=== PATIENT | male | born 1940 | race Caucasian/White ===

== ENCOUNTER → 2016-06-18 | Outpatient (CLI) | payer MEDICARE ==
--- NOTE | 2016-06-18 13:43 | XR ---
EXAMINATION TYPE: XR chest 2V DATE OF EXAM: 06/18/2016 12:00 PM COMPARISON: Prior chest x-ray 01 April 2012 HISTORY: COPD TECHNIQUE: Frontal and lateral views of the chest are obtained. FINDINGS: The right hemidiaphragm is elevated as on prior exam. There are postop changes present yusef t are stable, post lobectomy, median sternotomy. Intracardiac defibrillator leads are stable. No evid ent pneumothorax or pleural effusion. There is a spinal curvature. Ill-defined area of increased dens ity in the right upper lobe may be better visualized due to rotation, difficult to exclude an underly ing mass. Prominent lung volume may be indicative of underlying COPD. IMPRESSION: Postop changes, difficult to exclude an underlying mass right upper lobe, consider chest CT for better evaluation.
--- NOTE | 2016-06-18 13:46 | XR ---
Lumbosacral spine HISTORY: Low back pain, right flank pain 5 views of the lumbosacral spine No comparisons There is a dextroscoliosis centered at L3. Aortic stent graft is in place. There is multilevel spondy losis. In the left paraspinal location there is a calcification measuring approximately 24 mm x 17 mm . Additional smaller calcifications are scattered within the abdomen. Lumbar vertebral bodies show pr eserved height. Bone mineralization is mildly reduced. Multilevel spondylosis is present, loss of dis c height at the vertebral levels with associated vacuum phenomenon is noted. Sclerosis present in the posterior elements compatible with facet arthropathy. IMPRESSION: Degenerative disc disease, facet arthropathy, scoliosis and osteopenia. Possible nephroli thiasis, calcifications are indeterminate within the abdomen. Follow-up as indicated.
--- NOTE | 2016-06-18 14:07 | XR ---
EXAMINATION TYPE: XR Hip RT and AP Pelvis DATE OF EXAM: 06/18/2016 12:00 PM COMPARISON: NONE HISTORY: Low back pain TECHNIQUE: A single AP view of the pelvis is obtained. Two views of the right hip are obtained. FINDINGS: There is no acute fracture/dislocation evident in the pelvis. The hip and sacroiliac join ts appear symmetric and show some sclerosis possibly due to stress change, osteoarthritic change. Th e overlying soft tissue appears unremarkable. Vascular calcifications are present, postop change stat us post aorta iliac stent graft. Marginal spurring present in the right hip, there is some joint spac e loss within the hips. Bone mineralization is reduced. IMPRESSION: There is no acute fracture or dislocation in the pelvis or right hip. Mild osteoarthriti c changes are suspected.
== END | disposition home or self-care (01) ==
LOC: RADXRMAIN 11:35
PROVIDERS: ATTEND Family Medicine
DX: M51.36 Other intervertebral disc degeneration, lumbar region (principal); M46.86 Other specified inflammatory spondylopathies, lumbar region; M41.9 Scoliosis, unspecified; M85.88 Other specified disorders of bone density and structure, other site; M25.551 Pain in right hip; J44.9 Chronic obstructive pulmonary disease, unspecified
CPT/HCPCS: 71020; 72110; 73502

== ENCOUNTER → 2016-06-19 | Outpatient (CLI) | payer MEDICARE ==
--- NOTE | 2016-06-19 20:32 | CT ---
EXAMINATION TYPE: CT abdomen pelvis wo con DATE OF EXAM: 06/19/2016 8:11 PM COMPARISON: NONE HISTORY: Right sided pain CT DLP: 1409.5 mGycm Automated exposure control for dose reduction was used. TECHNIQUE: Helical acquisition of images was performed from the lung bases through the pelvis. FINDINGS: There is mild linear density at the right lung base consistent with atelectasis. There is no pericard ial effusion. There is no pleural effusion. Liver spleen pancreas appear normal. Bile ducts are not dilated. Gallbladder appears normal. There is no adrenal mass. There is a 7 cm cortical cyst on the anterior right kidney. There is no hydronephro sis. There is some cortical thinning in both kidneys and worse on the right side. There is no retrope ritoneal adenopathy. There is an aortic stent extending into the common iliac arteries. There is no retroperitoneal adenopathy. There is no ascites. Abdominal aorta is atheromatous. Bladder distends smoothly. There is no sign of a pelvic mass. Appendix is not seen. There is no sign of appe ndicitis. Prostate is enlarged and measures 5.5 cm. IMPRESSION: MILD ATELECTASIS AT THE RIGHT LUNG BASE. ENLARGED PROSTATE. ATHEROSCLEROTIC VASCULAR DISEASE. 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 LARGE RIGHT RENAL CORTICAL CYST. THERE IS SOME L4-5 SP INAL STENOSIS WITH A MINIMAL DEGENERATIVE FIRST-DEGREE L4-5 SPONDYLOLISTHESIS.
== END | disposition home or self-care (01) ==
LOC: RADCTMAIN 19:20
PROVIDERS: ATTEND Family Medicine
DX: N40.0 Benign prostatic hyperplasia without lower urinary tract symptoms (principal); N26.1 Atrophy of kidney (terminal); N28.1 Cyst of kidney, acquired; I70.90 Unspecified atherosclerosis
CPT/HCPCS: 74176

== ENCOUNTER → 2016-07-04 | Outpatient (CLI) | payer MEDICARE ==
[2016-07-05 09:27] LABS: Mis test requested (Non-blood) TP Urine 24Hr
== END | disposition home or self-care (01) ==
LOC: LABWHC1 11:57
PROVIDERS: ATTEND Family Medicine
DX: N18.2 Chronic kidney disease, stage 2 (mild) (principal)
CPT/HCPCS: 36415; 81050; 82575; 84156

== ENCOUNTER → 2016-07-10 | Outpatient (CLI) | payer MEDICARE ==
--- NOTE | 2016-07-10 16:05 | US ---
EXAMINATION TYPE: US kidneys/renal and bladder DATE OF EXAM: 07/10/2016 3:51 PM COMPARISON: NONE CLINICAL HISTORY: N18.2 CKD Stage 2. Cyst seen on recent CT EXAM MEASUREMENTS: Right Kidney: 9.9 x 4.5 x 5.9cm Left Kidney: 11.5 x 4.3 x 6.0cm TECHNOLOGIST IMPRESSION: Large body habitus Right Kidney: 7.3cm inferior pole cyst Left Kidney: 1.6cm inferior pole cyst seen Bladder: not fully distended, what was seen was wnl Bilateral Jets seen: no IMPRESSION: BILATERAL, SIMPLE APPEARING RENAL CYSTS.
== END | disposition home or self-care (01) ==
LOC: RADUSWWP 15:26
PROVIDERS: ATTEND Family Medicine
DX: N28.1 Cyst of kidney, acquired (principal); N18.2 Chronic kidney disease, stage 2 (mild)
CPT/HCPCS: 76770

== ENCOUNTER 2016-07-12 08:57 | Day surgery (SDC) | payer MEDICARE ==
[2016-07-11 11:25] VITALS: BMI 35.5
[~2016-07-12 08:57] MED LIST: LACTATED RINGERS 1,000 ML IV SCH
[2016-07-12] MEDS ORDERED: LIDOCAINE 1% 20 ML VIAL (10MG/ML) FOR IV START INTRADERMA ONE (09:40)
[2016-07-12 09:55] VITALS: TEMP 97.2
[2016-07-12] MEDS ORDERED: PROPOFOL 10 MG/ML 20 ML VIAL IV ONE (10:19)
[2016-07-12] MEDS ORDERED: LIDOCAINE 1% INJ 10MG/ML (20 ML MDV) ONE (10:19)
--- NOTE | 2016-07-12 10:45 | P.PCN ---
Date of Procedure: 07/12/16 Procedure(s) Performed: BRIEF HISTORY: Patient is a 76-year-old pleasant white male, scheduled for an elective colonoscopy as a part of screening for colorectal neoplasia. PROCEDURE PERFORMED: Colonoscopy and snare polypectomy. PREOPERATIVE DIAGNOSIS: Screening for colon cancer. IV sedation per Anesthesia. PROCEDURE: After informed consent was obtained, the patient, was brought into the endoscopy unit. IV conscious sedation was administered by Anesthesia under continuous monitoring. Initially the Olympus CF-160 flexible video colonoscope was then inserted in the rectum, gradually advanced into the cecum without any difficulty. Careful examination was performed as the scope was gradually being withdrawn. Ileocecal valve and the appendiceal orifice were visualized and appeared normal. Prep was excellent. In the base of the cecum there was a 1 cm polyp removed by snare polypectomy. In the ascending colon there was a 5 meter polyp removed by snare polypectomy. Mucosa of the cecum, ascending colon , transverse colon, descending colon, sigmoid colon, and rectum appeared normal. Retroflexion was performed in the rectum and no lesions were seen. The patient tolerated the procedure well. IMPRESSION: 1 cm cecal polyp status post polypectomy 5 mm ascending colon polyp status post polypectomy RECOMMENDATIONS: Findings of this examination were discussed with the patient as well as her family. He was advised to follow with the biopsy results. If the biopsy shows a tubular adenoma he can have a repeat colonoscopy in 3 years..
[2016-07-12 11:10] VITALS: BP 102/67; PULSE 53; RESP 18
== END 2016-07-12 11:49 | disposition home or self-care (01) ==
LOC: ORWHC2ENDO 08:57
PROVIDERS: ATTEND Internal Medicine Gastroenterology
DX: Z12.11 Encounter for screening for malignant neoplasm of colon (principal); D12.0 Benign neoplasm of cecum; D12.2 Benign neoplasm of ascending colon; I25.10 Atherosclerotic heart disease of native coronary artery without angina pectoris; I10 Essential (primary) hypertension; E78.5 Hyperlipidemia, unspecified; J45.909 Unspecified asthma, uncomplicated; J44.9 Chronic obstructive pulmonary disease, unspecified; G47.33 Obstructive sleep apnea (adult) (pediatric); E11.9 Type 2 diabetes mellitus without complications; F32.9 Major depressive disorder, single episode, unspecified; I25.2 Old myocardial infarction; Z79.02 Long term (current) use of antithrombotics/antiplatelets; Z79.899 Other long term (current) drug therapy; Z87.891 Personal history of nicotine dependence; Z95.1 Presence of aortocoronary bypass graft; Z95.5 Presence of coronary angioplasty implant and graft; Z95.810 Presence of automatic (implantable) cardiac defibrillator
CPT/HCPCS: 45385; 88305; J2001; J2704; 99153

== ENCOUNTER → 2016-07-31 | Outpatient (CLI) | payer MEDICARE ==
[2016-07-31 12:48] LABS: Basophils % (A) 0 %; CHCM 31.3; Eosinophils # (A) 0.3 k/uL (0-0.7); Eosinophils % (A) 3 %; HCT 42.2 % (39.0-53.0); HDW 2.54; HGB 13.1 gm/dL (13.0-17.5); Hypochromasia Slight; Luc # (Auto) 0.32; Luc % (Auto) 4; Lymphocytes # (A) 1.6 k/uL (1.0-4.8); Lymphocytes % (A) 20 %; MCH 31.9 pg (25.0-35.0); MCV 102.8 fL (80.0-100.0); Macrocytosis Slight; Mean Platelet Volume 6.6; Monocytes # (A) 0.6 k/uL (0-1.0); Monocytes % (A) 7 %; Neutrophils # (A) 5.3 k/uL (1.3-7.7); Neutrophils % (A) 66 %; RBC 4.11 m/uL (4.30-5.90); RDW 13.5 % (11.5-15.5); WBC (Perox) 8.79
[2016-07-31 13:07] LABS: ALT 29 U/L (21-72); AST 20 U/L (17-59); Alkaline Phosphatase 67 U/L (38-126); Anion Gap 12 mmol/L; Blood Urea Nitrogen 29 mg/dL (9-20); Calcium 9.4 mg/dL (8.4-10.2); Carbon Dioxide 30 mmol/L (22-30); Chloride 102 mmol/L (98-107); Glucose 100 mg/dL (74-99); Non-African American GFR(MDRD) 51 (>60 ml/min/1.73 sqM); Phosphorous 3.4 mg/dL (2.5-4.5); Potassium 4.5 mmol/L (3.5-5.1); Sodium 144 mmol/L (137-145); Total Bilirubin 0.7 mg/dL (0.2-1.3)
[2016-07-31 13:08] LABS: Appearance,Urine Clear (Clear); Bilirubin,Urine Negative (Negative); Glucose,Urine (UA) Negative (Negative); Ketones,Urine Negative (Negative); Leukocyte Esterase,Urine Negative (Negative); Nitrite,Urine Negative (Negative); Protein,Urine Negative (Negative); Specific Gravity,Urine 1.006 (1.001-1.035); UA Billing (MACRO vs. MICRO) CHEM; Urobilinogen,Urine <2.0 mg/dL (<2.0)
== END | disposition home or self-care (01) ==
LOC: LABWHC1 11:50
PROVIDERS: ATTEND Family Medicine
DX: N18.2 Chronic kidney disease, stage 2 (mild) (principal)
CPT/HCPCS: 36415; 80053; 81003; 84100; 85025

== ENCOUNTER → 2016-09-04 | Outpatient (CLI) | payer MEDICARE ==
[2016-09-04 08:42] LABS: Appearance,Urine Clear (Clear); Bilirubin,Urine Negative (Negative); Glucose,Urine (UA) Negative (Negative); Ketones,Urine Negative (Negative); Leukocyte Esterase,Urine Negative (Negative); Nitrite,Urine Negative (Negative); PH, Urine 5.5 (5.0-8.0); Protein,Urine Negative (Negative); Specific Gravity,Urine 1.018 (1.001-1.035); UA Billing (MACRO vs. MICRO) CHEM; Urobilinogen,Urine <2.0 mg/dL (<2.0)
[2016-09-04 09:07] LABS: Basophils % (A) 0 %; CH 32.5; CHCM 32.6; Eosinophils # (A) 0.3 k/uL (0-0.7); Eosinophils % (A) 5 %; HCT 43.4 % (39.0-53.0); HDW 2.58; HGB 14.1 gm/dL (13.0-17.5); Luc # (Auto) 0.21; Luc % (Auto) 3; Lymphocytes # (A) 1.3 k/uL (1.0-4.8); Lymphocytes % (A) 18 %; MCH 32.6 pg (25.0-35.0); MCHC 32.5 g/dL (31.0-37.0); MCV 100.2 fL (80.0-100.0); Mean Platelet Volume 6.6; Monocytes # (A) 0.4 k/uL (0-1.0); Monocytes % (A) 5 %; Neutrophils % (A) 69 %; RBC 4.33 m/uL (4.30-5.90); RDW 12.5 % (11.5-15.5); WBC 7.3 k/uL (3.8-10.6); WBC (Perox) 7.88
[2016-09-04 13:57] LABS: Anion Gap 11 mmol/L; Blood Urea Nitrogen 27 mg/dL (9-20); Calcium 9.2 mg/dL (8.4-10.2); Carbon Dioxide 27 mmol/L (22-30); Chloride 105 mmol/L (98-107); Glucose 109 mg/dL (74-99); Iron 78 ug/dL (49-181); Magnesium 1.9 mg/dL (1.6-2.3); Non-African American GFR(MDRD) 59 (>60 ml/min/1.73 sqM); Phosphorous 3.2 mg/dL (2.5-4.5); Potassium 4.3 mmol/L (3.5-5.1); Sodium 143 mmol/L (137-145); Uric Acid 7.5 mg/dL (3.5-8.5)
[2016-09-04 14:07] LABS: Total Iron Binding Capacity 325 ug/dL (261-462)
== END | disposition home or self-care (01) ==
LOC: LABWHC1 07:57
PROVIDERS: ATTEND Internal Medicine Nephrology
DX: D64.9 Anemia, unspecified (principal); E55.9 Vitamin D deficiency, unspecified; E21.3 Hyperparathyroidism, unspecified; N39.0 Urinary tract infection, site not specified; M10.9 Gout, unspecified; N18.3 Chronic kidney disease, stage 3 (moderate)
CPT/HCPCS: 36415; 80048; 81003; 82040; 82306; 82728; 83540; 83550; 83735; 83970; 84100; 84165; 84550; 85025; 86335

== ENCOUNTER → 2016-11-21 | Outpatient (CLI) | payer MEDICARE ==
--- NOTE | 2016-11-21 13:45 | US ---
EXAMINATION TYPE: US venous doppler duplex LE RT DATE OF EXAM: 11/21/2016 9:56 AM COMPARISON: NONE CLINICAL HISTORY: M79.604 Pain in R Leg. SIDE PERFORMED: Bilateral TECHNIQUE: The lower extremity deep venous system is examined utilizing real time linear array sonog niranjan with graded compression, doppler sonography and color-flow sonography. VESSELS IMAGED: External Iliac Vein (EIV) Common Femoral Vein Deep Femoral Vein Greater Saphenous Vein * Femoral Vein Popliteal Vein Small Saphenous Vein * Proximal Calf Veins (* superficial vessels) Grayscale, color doppler, spectral doppler imaging performed of the deep veins of the lower extremiti es. There is normal flow, compressibility, vascular waveforms bilaterally. Right Leg: Negative for DVT Left Leg: Negative for DVT IMPRESSION: No evidence for DVT at this time.
== END | disposition home or self-care (01) ==
LOC: RADUSWWP 08:47
PROVIDERS: ATTEND Family Medicine
DX: M79.604 Pain in right leg (principal)
CPT/HCPCS: 93970

== ENCOUNTER → 2017-01-01 | Outpatient (CLI) | payer MEDICARE ==
[2017-01-01 12:55] LABS: Appearance,Urine Clear (Clear); Bilirubin,Urine Negative (Negative); Glucose,Urine (UA) Negative (Negative); Ketones,Urine Negative (Negative); Leukocyte Esterase,Urine Negative (Negative); Nitrite,Urine Negative (Negative); Protein,Urine Negative (Negative); Specific Gravity,Urine 1.006 (1.001-1.035); UA Billing (MACRO vs. MICRO) CHEM; Urobilinogen,Urine <2.0 mg/dL (<2.0)
[2017-01-01 13:14] LABS: Basophils % (A) 0 %; CH 32.1; CHCM 32.5; Eosinophils # (A) 0.3 k/uL (0-0.7); Eosinophils % (A) 4 %; HCT 45.3 % (39.0-53.0); HDW 2.33; HGB 14.1 gm/dL (13.0-17.5); Luc # (Auto) 0.23; Luc % (Auto) 3; Lymphocytes # (A) 1.7 k/uL (1.0-4.8); Lymphocytes % (A) 20 %; MCH 30.8 pg (25.0-35.0); MCV 99.3 fL (80.0-100.0); Mean Platelet Volume 6.9; Monocytes # (A) 0.5 k/uL (0-1.0); Monocytes % (A) 6 %; Neutrophils # (A) 5.7 k/uL (1.3-7.7); Neutrophils % (A) 67 %; RBC 4.57 m/uL (4.30-5.90); RDW 13.8 % (11.5-15.5); WBC 8.5 k/uL (3.8-10.6); WBC (Perox) 8.44
[2017-01-01 13:22] LABS: Calcium 9.4 mg/dL (8.4-10.2); Magnesium 1.9 mg/dL (1.6-2.3); Phosphorous 4.2 mg/dL (2.5-4.5); Potassium 4.8 mmol/L (3.5-5.1); Uric Acid 8.7 mg/dL (3.5-8.5)
[2017-01-01 13:31] LABS: % Iron Saturation 33.4 % (20-50)
== END | disposition home or self-care (01) ==
LOC: LABWHC1 12:27
PROVIDERS: ATTEND Nurse Practitioner Family
DX: N18.3 Chronic kidney disease, stage 3 (moderate) (principal); D64.9 Anemia, unspecified; E55.9 Vitamin D deficiency, unspecified; E21.3 Hyperparathyroidism, unspecified; M10.9 Gout, unspecified; N39.0 Urinary tract infection, site not specified
CPT/HCPCS: 36415; 80048; 81003; 82306; 82728; 83540; 83550; 83735; 83970; 84100; 84550; 85025

== ENCOUNTER 2018-02-11 07:23 | Day surgery (SDC) | payer MEDICARE ==
[2018-02-09 11:59] VITALS: BMI 35.2
[~2018-02-11 07:23] MED LIST changes: +HYDROmorphone 0.5 MG/0.5 ML SYRINGE IVP PRN; +LIDOCAINE 1% 20 ML VIAL (10MG/ML) FOR IV START INTRADERMA PRN; +MOXIFLOXACIN HCL 0.5% DROPS 3 ML BTL OP ONE; +TETRACAINE 0.5% OPHTH (PF) DROPS 4 ML BTL OP ONE; +TIMOLOL 0.5% OPHTH DROPS 5 ML BTL OP ONE
[2018-02-11] MEDS: PHENYLEPHRINE 2.5% OPHTH DRP 2ML OP NR ×3 (08:20→08:36)
[2018-02-11] MEDS: CYCLOPENTOLATE 1% OPHTH SOLN 2 ML BTL OP ONE ×2 (08:24→08:39)
[2018-02-11 08:28] VITALS: RESP 16; TEMP 97.9
[2018-02-11] MEDS ORDERED: BALANCED SALT IRRIG SOLN COMB2 15 ML IRRIG.SOLN IRRIGATION ONE (09:39)
[2018-02-11] MEDS ORDERED: LIDOCAINE 1% (PF) 10MG/ML VIAL SQ ONE (09:39)
[2018-02-11] MEDS ORDERED: DUOVISC KIT (GREEN BOX) INTRAOCULA ONE (09:39)
[2018-02-11] MEDS ORDERED: EPINEPHrine (PF) 0.3 ML in BALANCED SALT IRRIG SOLN COMB2 500 ML IRRIGATION ONE (09:40)
[2018-02-11] MEDS ORDERED: EPINEPHrine 1 MG/ML 1 ML AMP IRRIGATION ONE (09:44)
--- NOTE | 2018-02-11 10:02 | P.OP ---
Date of Procedure: 02/11/18 Preoperative Diagnosis: NS Postoperative Diagnosis: same Procedure(s) Performed: PIOL, OS Implants: [id number] 28.50 Anesthesia: MAC Surgeon: Monty Ross Estimated Blood Loss (ml): 0 Pathology: none sent Condition: stable Disposition: same day Indications for Procedure: blurry vision & small pupil Operative Findings: NO complications
[2018-02-11 10:37] VITALS: BP 113/67; PULSE 52
--- NOTE | 2018-02-11 17:41 | OP ---
OPERATIVE REPORT DATE OF SURGERY: February 11, 2018. PROCEDURE PERFORMED: Phacoemulsification of cataract and intra-ocular lens implant of the left eye. PREOPERATIVE DIAGNOSIS: Nuclear sclerosis and regular astigmatism. POSTOPERATIVE DIAGNOSES: 1. Nuclear sclerosis. 2. Regular astigmatism. 3. Persistent miosis. SURGEONS: Dr. Monty Ross. ANESTHESIA: Topical. ESTIMATED BLOOD LOSS: None. SPECIMEN: Taken none. NARRATIVE: After obtaining the appropriate consent, the patient was brought to the operating room. There he was asked to sit upright and the axis 0 and 180 degrees were identified and marked with a gentian elis marker. He was then placed in the proper supine position under cardiac monitoring, then prepped and draped in the usual sterile manner. He was approached from his left temporal side using previously acquired corneal topography information, the axis 111 degrees was identified and marked at the 5 o'clock position. An MVR blade was used to create a paracentesis port. Through this opening 1% Xylocaine MPF 50 50 mix of balanced salt solution was injected into the anterior chamber. This was followed by stabilization of the anterior chamber with Viscoat. At the 3 o'clock position, a 2.5 mm keratome was used to create a self-sealing corneal flap incision in a Langerman's fashion. The pupil at this time was not any larger than about 4-1/2 mm and the concern for progressive miosis during the course of the case, it was opted to use a Malyugin ring 7 mm in size to hold the pupil open during the course of the cataract removal. A cystotome was then introduced to begin a continuous tear capsulorrhexis which was completed using the Utrata forceps. Hydrodissection and hydrodelineation of the lens was accomplished with balanced salt solution. Phacoemulsification of the lens utilizing phaco chop was accomplished in 23.35 seconds at 13% power. Additional Xylocaine MPF was instilled into the anterior chamber. This was followed by removal of the remaining cortex in and around the capsular bag and the capsular equator. Careful polishing was accomplished on the posterior capsule in the capsule vacuum mode. Provisc was then used to stabilize the capsular bag and an KHOI ZCT 400 28.5 diopter posterior chamber intraocular lens was then inserted into the bag without difficulty. The viscoelastic was removed from in and around the intra-ocular lens and the lens was rotated to its preferred orientation at the 111 degrees. A small amount of viscoelastic was then used to deepen the anterior chamber and the Malyugin ring was then disinserted from the nasal iris and then removed from the temporal incision with the insertion instrument. The balance of the viscoelastic was then removed under irrigation aspiration. The eye was then brought to normal intraocular pressure through the paracentesis port again confirming the orientation of the lens had not changed. The incisions were confirmed watertight. He then received 2 drops of 0.5% timolol followed by 2 drops of moxifloxacin and then was lightly patched and shielded in the usual manner. There were no complications from the procedure. He tolerated the procedure well and returned to outpatient recovery in good condition. MMODL / IJN: [id number] /
== END 2018-02-11 10:55 | disposition home or self-care (01) ==
LOC: OR 07:23
PROVIDERS: ATTEND Ophthalmology
DX: H25.13 Age-related nuclear cataract, bilateral (principal); H52.223 Regular astigmatism, bilateral; H57.03 Miosis; H00.023 Hordeolum internum right eye, unspecified eyelid; H00.026 Hordeolum internum left eye, unspecified eyelid; H52.4 Presbyopia; H52.03 Hypermetropia, bilateral; E11.9 Type 2 diabetes mellitus without complications; I25.10 Atherosclerotic heart disease of native coronary artery without angina pectoris; I10 Essential (primary) hypertension; E78.00 Pure hypercholesterolemia, unspecified; Z95.1 Presence of aortocoronary bypass graft; Z95.0 Presence of cardiac pacemaker; Z79.02 Long term (current) use of antithrombotics/antiplatelets; Z79.51 Long term (current) use of inhaled steroids; Z79.899 Other long term (current) drug therapy
CPT/HCPCS: 66984; C1780; J0171 ×2; J2001

== ENCOUNTER 2018-02-25 08:10 | Day surgery (SDC) | payer MEDICARE ==
[2018-02-24 08:57] VITALS: BMI 34.5
[~2018-02-25 08:10] MED LIST changes: -HYDROmorphone 0.5 MG/0.5 ML SYRINGE IVP PRN; -LIDOCAINE 1% 20 ML VIAL (10MG/ML) FOR IV START INTRADERMA PRN
[2018-02-25 08:51] VITALS: RESP 16; TEMP 97.5
[2018-02-25] MEDS: CYCLOPENTOLATE 1% OPHTH SOLN 2 ML BTL OP ONE ×3 (08:55→09:16)
[2018-02-25] MEDS: PHENYLEPHRINE 2.5% OPHTH DRP 2ML OP NR ×3 (09:00→09:19)
[2018-02-25] MEDS ORDERED: LIDOCAINE 1% 20 ML VIAL (10MG/ML) FOR IV START INTRADERMA ONE (09:07)
[2018-02-25] MEDS ORDERED: BALANCED SALT IRRIG SOLN COMB2 15 ML IRRIG.SOLN IRRIGATION ONE (09:59)
[2018-02-25] MEDS ORDERED: LIDOCAINE 1% (PF) 10MG/ML VIAL SQ ONE (10:00)
[2018-02-25] MEDS ORDERED: DUOVISC KIT (GREEN BOX) INTRAOCULA ONE (10:00)
[2018-02-25] MEDS ORDERED: MIDAZOLAM 2 MG/2 ML VIAL ONE (10:08)
[2018-02-25] MEDS ORDERED: EPINEPHrine (PF) 0.3 ML in BALANCED SALT IRRIG SOLN COMB2 500 ML IRRIGATION ONE (10:17)
--- NOTE | 2018-02-25 10:38 | P.OP ---
Date of Procedure: 02/25/18 Preoperative Diagnosis: NS & reg astigmatism Postoperative Diagnosis: same Procedure(s) Performed: PIOL, OD Implants: [id number] 29.00 Anesthesia: MAC Surgeon: Monty Ross Estimated Blood Loss (ml): 0 Pathology: none sent Condition: stable Disposition: same day Operative Findings: blurry vision Description of Procedure: NO complications
[2018-02-25 11:02] LABS: Glucose,Whole Blood 112 mg/dL (75-99)
[2018-02-25 11:27] VITALS: BP 115/46; PULSE 50
--- NOTE | 2018-02-25 20:13 | OP ---
OPERATIVE REPORT DATE OF SURGERY: 25 February 2018. PROCEDURES: Phacoemulsification of cataract and intraocular lens implant of the right eye. PREOPERATIVE DIAGNOSES: 1. Nuclear sclerosis. 2. Regular astigmatism. POSTOPERATIVE DIAGNOSES: 1. Nuclear sclerosis. 2. Regular astigmatism. SURGEONS: Dr. Monty Ross. ANESTHESIA: Topical. ESTIMATED BLOOD LOSS: None. SPECIMEN TAKEN: None. NARRATIVE: After obtaining the appropriate consent, the patient was brought to the operating room. There he was asked to sit upright and fixate on an object across the room. The axes 0 and 180 degrees were identified and marked with a gentian elis marker. He was then placed in the proper supine position, prepped and draped in the usual sterile manner. He was approached from his right temporal side and the axis of 85 degrees was identified and marked with a decrement corneal marking set. At the 11 o'clock position an MVR blade was used to create a paracentesis port. Through this opening 1% Xylocaine MPF 50:50 mix with balanced salt solution was injected into the anterior chamber. This was followed by stabilization of the anterior chamber with Viscoat. At the 9 o'clock position, a 2.5 mm keratome was used to create a self-sealing corneal flap incision in a Langerman's fashion. Through this opening a cystotome was introduced to begin a continuous tear capsulorrhexis which was then completed using the Utrata forceps. Hydrodissection and hydrodelineation of the lens was accomplished with balanced salt solution. Phacoemulsification lens utilizing phaco chop was accomplished in 19.99 seconds at 15% power. Additional Xylocaine MPF was instilled into the anterior chamber. This was followed by removal of the remaining cortex under irrigation and aspiration along with careful polishing of the posterior capsule in capsule vacuum mode. Provisc was then used to stabilize the capsular bag and an KHOI [id number] 29.0 diopter posterior chamber intraocular lens was then inserted into the capsular bag without difficulty. The remaining viscoelastic was removed from in and around the intra-ocular lens and the lens was then aligned with the 85 degree axis as marked on the patient's cornea. The eye was then filled with balanced salt solution and the incisions were confirmed watertight. He then received 2 drops of 0.5% timolol followed by 2 drops of moxifloxacin and then was lightly patched and shielded in the usual manner. There were no complications from the procedure. He tolerated the procedure well and was returned to outpatient recovery in good condition. DAISHA / JANUSZN: [id number] /
== END 2018-02-25 11:55 | disposition home or self-care (01) ==
LOC: OR 08:10
PROVIDERS: ATTEND Ophthalmology
DX: H25.11 Age-related nuclear cataract, right eye (principal); E11.36 Type 2 diabetes mellitus with diabetic cataract; H52.223 Regular astigmatism, bilateral; H00.026 Hordeolum internum left eye, unspecified eyelid; H00.023 Hordeolum internum right eye, unspecified eyelid; H52.4 Presbyopia; H52.03 Hypermetropia, bilateral; I11.9 Hypertensive heart disease without heart failure; F32.9 Major depressive disorder, single episode, unspecified; M54.9 Dorsalgia, unspecified; J43.9 Emphysema, unspecified; K21.9 Gastro-esophageal reflux disease without esophagitis; Z95.1 Presence of aortocoronary bypass graft; Z95.5 Presence of coronary angioplasty implant and graft; Z95.0 Presence of cardiac pacemaker; Z79.51 Long term (current) use of inhaled steroids; Z79.899 Other long term (current) drug therapy; Z85.828 Personal history of other malignant neoplasm of skin
CPT/HCPCS: 66984; V2787; C1780; J2250; J0171; J2001

== ENCOUNTER → 2019-04-05 | Outpatient (CLI) | payer MEDICARE ==
--- NOTE | 2019-04-05 15:41 | XR ---
EXAMINATION TYPE: XR chest 2V DATE OF EXAM: 04/05/2019 COMPARISON: Prior chest x-ray 06/18/2016 HISTORY: Cough and shortness of breath TECHNIQUE: Frontal and lateral views of the chest are obtained. FINDINGS: Patient is post median sternotomy. Right hemidiaphragm remains elevated. Abnormal increased attenuation the right upper lobe is again noted is somewhat more conspicuous as compared to previous chest x-ray. Fourth rib resection change is stable on the right. Generator is in the left pectoral r egion, there are leads in the right atrium, right ventricle, coronary sinus. There is no pleural effu jayant or pneumothorax seen. Minimal patchy basilar density is again noted and may reflect scarring, a telectasis. The cardiac silhouette size is stable. The osseous structures are intact. IMPRESSION: Abnormal density right upper lobe may be related to patient's surgery but may be somewha t more conspicuous on today's exam. Chest CT could be performed for better evaluation as stated on pr ior report.
== END | disposition home or self-care (01) ==
LOC: RADXRMAIN 13:07
PROVIDERS: ATTEND Family Medicine
DX: J98.4 Other disorders of lung (principal)
CPT/HCPCS: 71046

== ENCOUNTER → 2019-09-28 | Outpatient (CLI) | payer MEDICARE | END | disposition home or self-care (01) | LOC: LABWHC1 08:12 | PROVIDERS: ATTEND Internal Medicine Clinical Cardiac Electrophysiology | DX: Z11.59 Encounter for screening for other viral diseases (principal) | CPT/HCPCS: 87635 ==

== ENCOUNTER 2019-09-30 13:53 | Day surgery (SDC) | payer MEDICARE ==
[2019-09-29 10:38] VITALS: BMI 33.2
[~2019-09-30 13:53] MED LIST changes: -MOXIFLOXACIN HCL 0.5% DROPS 3 ML BTL OP ONE; +SODIUM CHLORIDE 0.9% 1,000 ML IV SCH; -TETRACAINE 0.5% OPHTH (PF) DROPS 4 ML BTL OP ONE; -TIMOLOL 0.5% OPHTH DROPS 5 ML BTL OP ONE; +ceFAZolin 1,000 MG in SODIUM CHLORIDE 0.9% IRRIGATIO 250 ML IRRIGATION ONE
[2019-09-30] MEDS ORDERED: SODIUM CHLORIDE 0.9% 1,000 ML IV ONE (14:05)
[2019-09-30 14:29] LABS: Glucose,Whole Blood 91 mg/dL (75-99)
[2019-09-30 14:33] LABS: Basophils % (A) 0 %; Eosinophils # (A) 0.2 k/uL (0-0.7); Eosinophils % (A) 2 %; HCT 46.6 % (39.0-53.0); HGB 15.2 gm/dL (13.0-17.5); Lymphocytes # (A) 0.8 k/uL (1.0-4.8); Lymphocytes % (A) 9 %; MCH 31.7 pg (25.0-35.0); MCHC 32.6 g/dL (31.0-37.0); MCV 97.1 fL (80.0-100.0); Mean Platelet Volume 7.1; Monocytes # (A) 0.6 k/uL (0-1.0); Monocytes % (A) 7 %; Neutrophils # (A) 7.3 k/uL (1.3-7.7); Neutrophils % (A) 80 %; Platelet Count 293 k/uL (150-450); RDW 13.6 % (11.5-15.5); WBC 9.2 k/uL (3.8-10.6)
[2019-09-30 14:38] LABS: INR 1.5 (<1.2); Prothrombin Time 15.2 sec (9.0-12.0)
[2019-09-30 14:40] LABS: Calcium 9.2 mg/dL (8.4-10.2); Potassium 4.8 mmol/L (3.5-5.1)
[2019-09-30 14:46] VITALS: TEMP 98
[2019-09-30] MEDS ORDERED: VANCOMYCIN 1,000 MG in SODIUM CHLORIDE 0.9% 250 ML IVPB STA (14:59)
[2019-09-30] MEDS ORDERED: MIDAZOLAM 2 MG/2 ML VIAL ONE (15:49)
[2019-09-30] MEDS ORDERED: fentaNYL (PF) 50 MCG/ML 2 ML AMP ONE (15:49)
[2019-09-30] MEDS ORDERED: VANCOMYCIN 1,000 MG VIAL ONE (15:49)
[2019-09-30] MEDS ORDERED: LIDOCAINE 1% INJ 10MG/ML (20 ML MDV) ONE ×2 (16:05)
[2019-09-30] MEDS ORDERED: LIDOCAINE 1% INJ 10MG/ML (20 ML MDV) SQ ONE ×2 (16:15→16:21)
[2019-09-30] MEDS ORDERED: CEPHALEXIN 500 MG CAP PO STA (17:16)
[2019-09-30] MEDS ORDERED: ACETAMINOPHEN IV (For NPO) 1,000 MG in EMPTY BAG 1 BAG IVPB ONE (17:16)
[2019-09-30] MEDS ORDERED: ACETAMINOPHEN TAB 325 MG TAB PO PRN (17:16)
--- NOTE | 2019-09-30 17:39 | P.DS ---
Providers Attending physician: Julio Cesar Giraldo [facility] Course: Mr. Baldwin underwent biventricular ICD generator change successfully He will be discharged home today and was see us in the office in the device clinic in about 5-7 days IV antibiotics were administered He will get extra dose of oral Keflex No changes in his medications. He will restart Coumadin tomorrow Plan - Discharge Summary Discharge Rx Participant: Yes New Discharge Prescriptions: Continue Spironolactone [Aldactone] 25 mg PO BID Furosemide [Lasix] 40 mg PO DAILY Clopidogrel [Plavix] 75 mg PO DAILY Carvedilol [Coreg] 6.25 mg PO BID Atorvastatin [Lipitor] 20 mg PO HS Escitalopram [Lexapro] 10 mg PO DAILY Budesonide-Formot 160-4.5 Mcg [Symbicort 160-4.5 Mcg Inhaler] 2 puff INHALATION BID Albuterol Nebulized [Ventolin Nebulized] 2.5 mg INHALATION Q6H PRN PRN Reason: Dyspnea Warfarin [Coumadin] 5 mg PO DAILY Allopurinol [Zyloprim] 100 mg PO DAILY Glimepiride [Amaryl] [facility] Discharge Medication List Atorvastatin [Lipitor] 20 mg PO HS 04/30/16 [History] Carvedilol [Coreg] 6.25 mg PO BID 04/30/16 [History] Clopidogrel [Plavix] 75 mg PO DAILY 04/30/16 [History] Furosemide [Lasix] 40 mg PO DAILY 04/30/16 [History] Spironolactone [Aldactone] 25 mg PO BID 04/30/16 [History] Escitalopram [Lexapro] 10 mg PO DAILY 07/11/16 [History] Budesonide-Formot 160-4.5 Mcg [Symbicort 160-4.5 Mcg Inhaler] 2 puff INHALATION BID 02/09/18 [History] Albuterol Nebulized [Ventolin Nebulized] 2.5 mg INHALATION Q6H PRN 08/23/19 [History] Allopurinol [Zyloprim] 100 mg PO DAILY 08/23/19 [History] Warfarin [Coumadin] 5 mg PO DAILY 08/23/19 [History] Glimepiride [Amaryl] 1 mg PO [id number] 09/29/19 [History] Follow up Appointment(s)/Referral(s): Julio Cesar Giraldo MD [STAFF PHYSICIAN] - 1 Week (Device clinic follow-up within 1 week Follow-up with Dr. Giraldo/Melissa Schuster/Bindu Mckeon in 2-3 months) Activity/Diet/Wound Care/Special Instructions: PATIENT EDUCATION MATERIAL Instructions following a heart rhythm device implant. 1. Keep dressing DRY for 5 DAYS. You may cover the area with Saran or Cling Wrap, prior to a shower. 2. The dressing will be removed in the Device Clinic at [facility]. Absorbable sutures were used to close the wound. 3. Avoid raising the left arm above the shoulder level. 4 week restriction 4. Avoid arm movements, like backscratching, rubbing the head, or pulling on a cord. 4 weeks restriction 5. Gentle range of motion movements of the shoulder, closest to the incision should be performed to avoid a frozen shoulder. (Pendulum exercises of the shoulder) 6. The opposite arm may be used freely. 7. Avoid driving for 7 days. 8. Avoid activities such as golfing, swimming, weed whacking, lifting more than 10 pounds weight, bowling, gymnastics and weight training/lifting. (6 weeks restriction) 9. Activities such as wood chopping with an axe, pull-ups in the gymnasium, power lifting, arc-welding, being close to home induction cooktops will always be a problem. 10. Arm sling is only a reminder not to raise the arm above the head. You do not need to keep the arm completely immobilized. Your free to move the arm and use it and for normal activities. In case of any problems, please call [facility], Manny Montanez, @ [phone], Attention: Device Clinic Device clinic follow-up in 5 days Follow-up with primary maintenance repairman in 2-3 months Discharge Disposition: HOME SELF-CARE
[2019-09-30 17:57] VITALS: BP 141/72; PULSE 60; RESP 18
--- NOTE | 2019-09-30 18:54 | PCN ---
PROCEDURE NOTE Mr. Baldwin is an 79-year-old male patient who has a biventricular ICD implanted. His device is at [facility]. He has severe LV dysfunction with cardiomyopathy. He is brought into the EP lab for biventricular ICD generator change. Patient was brought to the EP lab in a fasting state. Written informed consent was obtained prior to the procedure. The left shoulder area was prepped and draped as per protocol. Lidocaine 1% was used for local anesthesia. IV antibiotics were administered. An incision was made directly over the generator and carried down to the level of the generator. The generator was explanted. The leads were freed from the surrounding capsule. Partial capsulectomy was performed. Hemostasis was assured. The LV lead was noted to have a kink in its coil and therefore this was repaired. Standard repair kit was used. Silicone was applied. Tubing was applied over it and secured with 2 silk sutures. The new generator was implanted. This was a [employer] model number [id number], serial number [id number]. The P-waves were 1.6 mV, pacing impedance 532 ohms, pacing threshold 1.25 V at 0.4 milliseconds. R-waves were 6.8 mV, pacing impedance 572 ohms. High-voltage impedance 78 ohms. Pacing threshold 0.75 V at 0.4 milliseconds. The LV pacing impedance was 456 ohms, pacing threshold 0.75 V at 0.4 milliseconds. The new generator was implanted. The wound was closed in 3 layers and dressed per protocol. RESULT: Successful biventricular ICD generator change for device at [facility]. The device was implanted with 2 zones of therapy, VT zone at 176 beats per minute, VF zone at 210 beats per minute. Appropriate antitachycardia pacing, cardioversion and defibrillation were programmed. LV/RV offset of 30 milliseconds for biventricular pacing. MMODL / IJN: [id number] /
== END 2019-09-30 18:55 | disposition home or self-care (01) ==
LOC: CATHEP 13:53
PROVIDERS: ATTEND Internal Medicine Clinical Cardiac Electrophysiology
DX: Z45.02 Encounter for adjustment and management of automatic implantable cardiac defibrillator (principal); I25.5 Ischemic cardiomyopathy; I25.10 Atherosclerotic heart disease of native coronary artery without angina pectoris; I11.0 Hypertensive heart disease with heart failure; I50.22 Chronic systolic (congestive) heart failure; I25.2 Old myocardial infarction; I73.9 Peripheral vascular disease, unspecified; E78.2 Mixed hyperlipidemia; M19.90 Unspecified osteoarthritis, unspecified site; F32.9 Major depressive disorder, single episode, unspecified; J44.9 Chronic obstructive pulmonary disease, unspecified; N28.9 Disorder of kidney and ureter, unspecified; Z95.1 Presence of aortocoronary bypass graft; Z87.891 Personal history of nicotine dependence; Z85.828 Personal history of other malignant neoplasm of skin; Z82.49 Family history of ischemic heart disease and other diseases of the circulatory system; Z79.02 Long term (current) use of antithrombotics/antiplatelets; Z79.51 Long term (current) use of inhaled steroids; Z79.01 Long term (current) use of anticoagulants; Z79.84 Long term (current) use of oral hypoglycemic drugs; Z79.899 Other long term (current) drug therapy; Z88.6 Allergy status to analgesic agent
CPT/HCPCS: 33264; 80048; 85025; 85610; C1882; J2250; J3370; J0690; J2001; J3010; J0131

== ENCOUNTER 2020-08-24 16:20 | Inpatient (IN) | payer MEDICARE ==
[2020-08-24] MEDS ORDERED: ALBUTEROL HFA INHALER INHALATION STA (16:49)
[2020-08-24] MEDS ORDERED: methylPREDNISolone SOD SUCCI 125 MG/2 ML VIAL IV STA (16:49)
[2020-08-24 17:08] LABS: Basophils % (A) 0 %; Eosinophils % (A) 0 %; HCT 46.7 % (39.0-53.0); HGB 15.2 gm/dL (13.0-17.5); Lymphocytes # (A) 0.8 k/uL (1.0-4.8); Lymphocytes % (A) 13 %; MCH 31.1 pg (25.0-35.0); MCHC 32.6 g/dL (31.0-37.0); MCV 95.6 fL (80.0-100.0); Mean Platelet Volume 7.3; Monocytes # (A) 0.5 k/uL (0-1.0); Monocytes % (A) 8 %; Neutrophils # (A) 4.8 k/uL (1.3-7.7); Neutrophils % (A) 76 %; Platelet Count 178 k/uL (150-450); RBC 4.89 m/uL (4.30-5.90); WBC 6.3 k/uL (3.8-10.6)
--- NOTE | 2020-08-24 17:15 | ED ---
General Adult HPI - General Chief complaint: Shortness of Breath Stated complaint: Sent by PCP - covid symptoms Time Seen by Provider: 08/24/20 16:36 Source: patient, RN notes reviewed, old records reviewed Mode of arrival: wheelchair Limitations: no limitations - History of Present Illness Initial comments: 80-year-old male presenting for evaluation of cough and dyspnea. Patient was sent in by primary care physician for possible medical antibody infusion. He does have history of COPD. He states he's had diarrhea as well as fatigue and fever. Symptoms have been present for approximately 5 days. - Related Data Home Medications Medication Instructions Recorded Confirmed Atorvastatin [Lipitor] 20 mg PO HS 04/30/16 09/30/19 Carvedilol [Coreg] 6.25 mg PO BID 04/30/16 09/30/19 Clopidogrel [Plavix] 75 mg PO DAILY 04/30/16 09/30/19 Furosemide [Lasix] 40 mg PO DAILY 04/30/16 09/30/19 Spironolactone [Aldactone] 25 mg PO BID 04/30/16 09/30/19 Escitalopram [Lexapro] 10 mg PO DAILY 07/11/16 09/30/19 Budesonide-Formot 160-4.5 Mcg 2 puff INHALATION BID 02/09/18 09/30/19 [Symbicort 160-4.5 Mcg Inhaler] Albuterol Nebulized [Ventolin 2.5 mg INHALATION Q6H PRN 08/23/19 09/30/19 Nebulized] Warfarin [Coumadin] 5 mg PO DAILY 08/23/19 09/30/19 allopurinoL [Zyloprim] 100 mg PO DAILY 08/23/19 09/30/19 Glimepiride [Amaryl] 1 mg PO AC-BRKFST 09/29/19 09/30/19 Allergies Allergy/AdvReac Type Severity Reaction Status Date / Time ibuprofen [From Motrin] AdvReac Nausea & Verified 08/24/20 16:29 Vomiting Review of Systems ROS Statement: Those systems with pertinent positive or pertinent negative responses have been documented in the HPI. ROS Other: All systems not noted in ROS Statement are negative. Past Medical History Past Medical History: Coronary Artery Disease (CAD), Cancer, COPD, Diabetes Mellitus, Eye Disorder, Hyperlipidemia, Hypertension, Osteoarthritis (OA), Renal Disease Additional Past Medical History / Comment(s): HX SKIN CA, STATES DIET CONTROLLED DIABETIC, currently taking antibiotic for cough & congestion, states cough is better since starting antibiotic, see Dr Giraldo H & P History of Any Multi-Drug Resistant Organisms: None Reported Past Surgical History: AICD, Coronary Bypass/CABG, Heart Catheterization, Heart Catheterization With Stent, Orthopedic Surgery Additional Past Surgical History / Comment(s): lung surgery to remove calcium deposits, left knee ligament repair, excision and skin grafting of skin cancer nose, CABG X3; Cataracts removed, stent for aortic aneurysm Past Anesthesia/Blood Transfusion Reactions: No Reported Reaction Date of Last Stent Placement:: 1999 Type of Cardiac Device: AICD Device Placement Date:: 2009 Past Psychological History: Depression Smoking Status: Never smoker Past Alcohol Use History: Occasional Past Drug Use History: None Reported - Past Family History Mother Family Medical History: Cancer Father Family Medical History: CVA/TIA General Exam Limitations: no limitations General appearance: alert, in distress Head exam: Present: atraumatic, normocephalic Eye exam: Present: normal appearance, PERRL ENT exam: Present: normal exam Neck exam: Present: normal inspection. Absent: tenderness, meningismus Respiratory exam: Present: respiratory distress, wheezes, rhonchi, accessory muscle use, decreased breath sounds Cardiovascular Exam: Present: regular rate, normal rhythm GI/Abdominal exam: Present: soft. Absent: distended, tenderness, guarding Extremities exam: Present: normal inspection, normal capillary refill. Absent: pedal edema, calf tenderness Neurological exam: Present: alert, oriented X3, CN II-XII intact. Absent: motor sensory deficit Psychiatric exam: Present: normal affect, normal mood Skin exam: Present: warm, dry, intact. Absent: cyanosis, diaphoretic Course Vital Signs 08/24/20 08/24/20 16:30 18:19 Temperature 99.3 F Pulse Rate 68 78 Respiratory 18 20 Rate Blood Pressure 116/57 131/65 O2 Sat by Pulse 88 L 92 L Oximetry EKG Findings - EKG Comments: EKG Findings:: EKG called amount pacemaker with PVCs, left axis, rate of 81, QRS duration 162, QTc 506 Medical Decision Making - Medical Decision Making 80-year-old male presents in moderate respiratory distress, history COPD. His presentation is concerning for virus. He has a chest x-ray showing bilateral infiltrate concerning for Crohn versus pneumonia. He does test positive for virus. He has elevated d-dimer 2.18 as well as elevated LDH and CRP. He has a creatinine of 2.03. His INR is therapeutic at 2.5. He is placed in observation for Crohn virus pneumonia with COPD exacerbation. He is given monoclonal antibodies as well as steroids in the emergency department. Case discussed with Dr. Ordoñez who will admit. - Lab Data Result diagrams: 08/24/20 16:57 08/24/20 16:57 Lab Results 08/24/20 08/24/20 08/24/20 Range/Units 16:57 16:57 16:57 WBC 6.3 (3.8-10.6) k/uL RBC 4.89 (4.30-5.90) m/uL Hgb 15.2 (13.0-17.5) gm/dL Hct 46.7 (39.0-53.0) % MCV 95.6 (80.0-100.0) fL MCH 31.1 (25.0-35.0) pg MCHC 32.6 (31.0-37.0) g/dL RDW 14.0 (11.5-15.5) % Plt Count 178 (150-450) k/uL MPV 7.3 Neutrophils % 76 % Lymphocytes % 13 % Monocytes % 8 % Eosinophils % 0 % Basophils % 0 % Neutrophils # 4.8 (1.3-7.7) k/uL Lymphocytes # 0.8 L (1.0-4.8) k/uL Monocytes # 0.5 (0-1.0) k/uL Eosinophils # 0.0 (0-0.7) k/uL Basophils # 0.0 (0-0.2) k/uL PT 24.0 H (9.0-12.0) sec INR 2.5 H (<1.2) APTT 39.0 H (22.0-30.0) sec D-Dimer 2.18 H (<0.60) mg/L FEU Sodium 134 L (137-145) mmol/L Potassium 5.0 (3.5-5.1) mmol/L Chloride 100 (98-107) mmol/L Carbon Dioxide 23 (22-30) mmol/L Anion Gap 11 mmol/L BUN 42 H (9-20) mg/dL Creatinine 2.03 H (0.66-1.25) mg/dL Est GFR (CKD-EPI)AfAm 34 (>60 ml/min/1.73 sqM) Est GFR (CKD-EPI)NonAf 30 (>60 ml/min/1.73 sqM) Glucose 134 H (74-99) mg/dL Plasma Lactic Acid Jerome (0.7-2.0) mmol/L Calcium 8.8 (8.4-10.2) mg/dL Magnesium 2.0 (1.6-2.3) mg/dL Total Bilirubin 0.8 (0.2-1.3) mg/dL AST 32 (17-59) U/L ALT 17 (4-49) U/L Alkaline Phosphatase 76 (38-126) U/L Lactate Dehydrogenase 846 H (313-618) U/L C-Reactive Protein 147.9 H (<10.0) mg/L Total Protein 6.7 (6.3-8.2) g/dL Albumin 3.7 (3.5-5.0) g/dL Coronavirus (PCR) (Not Detectd) 08/24/20 08/24/20 Range/Units 16:57 17:33 WBC (3.8-10.6) k/uL RBC (4.30-5.90) m/uL Hgb (13.0-17.5) gm/dL Hct (39.0-53.0) % MCV (80.0-100.0) fL MCH (25.0-35.0) pg MCHC (31.0-37.0) g/dL RDW (11.5-15.5) % Plt Count (150-450) k/uL MPV Neutrophils % % Lymphocytes % % Monocytes % % Eosinophils % % Basophils % % Neutrophils # (1.3-7.7) k/uL Lymphocytes # (1.0-4.8) k/uL Monocytes # (0-1.0) k/uL Eosinophils # (0-0.7) k/uL Basophils # (0-0.2) k/uL PT (9.0-12.0) sec INR (<1.2) APTT (22.0-30.0) sec D-Dimer (<0.60) mg/L FEU Sodium (137-145) mmol/L Potassium (3.5-5.1) mmol/L Chloride (98-107) mmol/L Carbon Dioxide (22-30) mmol/L Anion Gap mmol/L BUN (9-20) mg/dL Creatinine (0.66-1.25) mg/dL Est GFR (CKD-EPI)AfAm (>60 ml/min/1.73 sqM) Est GFR (CKD-EPI)NonAf (>60 ml/min/1.73 sqM) Glucose (74-99) mg/dL Plasma Lactic Acid Jerome 1.2 (0.7-2.0) mmol/L Calcium (8.4-10.2) mg/dL Magnesium (1.6-2.3) mg/dL Total Bilirubin (0.2-1.3) mg/dL AST (17-59) U/L ALT (4-49) U/L Alkaline Phosphatase (38-126) U/L Lactate Dehydrogenase (313-618) U/L C-Reactive Protein (<10.0) mg/L Total Protein (6.3-8.2) g/dL Albumin (3.5-5.0) g/dL Coronavirus (PCR) Detected A (Not Detectd) Disposition Clinical Impression: Acute exacerbation of chronic obstructive pulmonary disease, Pneumonia due to COVID-19 virus Disposition: ADMITTED IP TO THIS [facility] Condition: Stable Is patient prescribed a controlled substance at d/c from ED?: No Referrals: Edwige Steven MD [Primary Care Provider] - 1-2 days Decision to Admit Reason: Admit from EC Decision Date: 08/24/20 Decision Time: 19:19
[2020-08-24 17:24] LABS: Albumin 3.7 g/dL (3.5-5.0); Calcium 8.8 mg/dL (8.4-10.2); Total Bilirubin 0.8 mg/dL (0.2-1.3); Total Protein 6.7 g/dL (6.3-8.2)
[2020-08-24 17:28] LABS: INR 2.5 (<1.2)
--- NOTE | 2020-08-24 17:29 | XR ---
EXAMINATION TYPE: XR chest 1V portable DATE OF EXAM: 08/24/2020 COMPARISON: 04/05/2019. HISTORY: Shortness of breath. TECHNIQUE: Single frontal view of the chest is obtained. FINDINGS: There is moderate bibasilar patchy opacities. Additional 2 cm nodular opacity in the right upper lobe. Also similar nodular right perihilar opacity. Stable elevation of the right hemidiaphrag m. No pleural effusion, or pneumothorax seen. Stable cardiomediastinal silhouette and overlying posts urgical changes. The osseous structures are intact. IMPRESSION: Moderate bibasilar opacity, concerning for infiltrates. Additional right-sided nodular opacities. for which other etiologies cannot be excluded. Recommend CT for optimal evaluation.
[2020-08-24 18:12] LABS: C Reactive Protein 147.9 mg/L (<10.0)
[2020-08-24] MEDS ORDERED: BAMLANIVIMAB (EUA) 700 MG, ETESEVIMAB (EUA) 1,400 MG in SODIUM CHLORIDE 0.9% 50 ML IVPB ONE (20:00)
[2020-08-24] MEDS ORDERED: SODIUM CHLORIDE 0.9% 50 ML IVPB ONE (20:30)
[2020-08-25] MEDS ORDERED: ALBUTEROL HFA INHALER INHALATION PRN (00:59)
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
[2020-08-25] MEDS ORDERED: WARFARIN 5 MG TAB PO ONE ×2 (01:30→18:00)
[2020-08-25] MEDS: methylPREDNISolone SOD SUCCI 125 MG/2 ML VIAL IV SCH ×5 (02:48→23:11)
[2020-08-25 03:34] LABS: Ferritin 744.4 ng/mL (22.0-322.0)
[2020-08-25 04:49] LABS: HCT 48.2 % (39.0-53.0); HGB 15.9 gm/dL (13.0-17.5); MCV 97.2 fL (80.0-100.0); Platelet Count 177 k/uL (150-450); RBC 4.96 m/uL (4.30-5.90); RDW 13.5 % (11.5-15.5); WBC 6.4 k/uL (3.8-10.6)
[2020-08-25 07:46] LABS: Glucose,Whole Blood 318 mg/dL (75-99)
[2020-08-25] MEDS: INSULIN ASPART (NovoLOG) 100 UNIT/ML VIAL SQ SCH ×4 (07:46→20:05)
[2020-08-25] MEDS: ALBUTEROL HFA INHALER INHALATION SCH ×4 (08:51→20:16)
[2020-08-25] MEDS: TIOTROPIUM 2.5 MCG INHALER INHALATION SCH (08:52)
[2020-08-25] MEDS: SYMBICORT 160-4.5 MCG INHALER INHALATION SCH ×2 (08:52→20:16)
[2020-08-25] MEDS: CHOLECALCIFEROL 25 MCG (1000 IU) TABLET PO SCH (09:46)
[2020-08-25] MEDS: allopurinoL 100 MG TAB PO SCH (09:46)
[2020-08-25] MEDS: ASCORBIC ACID 500 MG TAB PO SCH (09:46)
[2020-08-25] MEDS: SPIRONOLACTONE 25 MG TAB PO SCH ×2 (09:46→20:05)
[2020-08-25] MEDS: carvediloL 6.25 MG TAB PO SCH ×2 (09:46→20:05)
[2020-08-25] MEDS: CLOPIDOGREL 75 MG TAB PO SCH (09:47)
[2020-08-25] MEDS: SODIUM CHLORIDE 0.9% 1,000 ML IV SCH ×2 (09:48→16:41)
[2020-08-25 09:56] LABS: INR 2.24 (0.90-1.11); Prothrombin Time 23.2 sec (9.9-11.9)
[2020-08-25 10:57] LABS: Anion Gap 17.6 mmol/L (4.00-12.00); BUN/Creat Ratio 23.81 Ratio (12.00-20.00); Calcium 8.6 mg/dL (8.7-10.3); Carbon Dioxide 20.4 mmol/L (21.6-31.8); Non-African American GFR(CKD) 28.5 (60.0-200.0); Potassium 5.2 mmol/L (3.5-5.5)
[2020-08-25 11:21] LABS: Glucose,Whole Blood 218 mg/dL (75-99)
--- NOTE | 2020-08-25 12:09 | P.PN ---
Subjective Progress Note Date: 08/25/20 No new complaints. Oxygenating well on 3L NC. Does appear to be dyspneic with talking during interview. Objective - Vital Signs Vital signs: Vital Signs Temp 97.7 F 08/25/20 09:46 Pulse 91 08/25/20 09:46 Resp 20 08/25/20 09:46 BP 125/84 08/25/20 09:46 Pulse Ox 91 L 08/25/20 09:46 Intake & Output 08/24/20 08/25/20 08/25/20 18:59 06:59 18:59 Weight 116.12 kg 116.12 kg - Exam Gen: awake, alert HEENT: normocephalic, atraumatic, good hearing acuity, moist mucous membranes Resp: good air exchange, breathing comfortably with no accessory muscle use CVS: good distal perfusion x 4, AICD present in left upper chest GI: soft, NTTP, ND : no SPT, no CVAT, pyle catheter not present MSK: no pitting edema, no clubbing Neuro: non-focal, moving all extremities Psych: cooperative, euthymic mood - Labs CBC & Chem 7: 08/25/20 04:13 08/25/20 04:13 Labs: Abnormal Lab Results - Last 24 Hours (Table) 08/24/20 08/24/20 08/24/20 Range/Units 16:57 16:57 16:57 Lymphocytes # 0.8 L (1.0-4.8) k/uL PT 24.0 H (9.0-12.0) sec INR 2.5 H (<1.2) APTT 39.0 H (22.0-30.0) sec D-Dimer 2.18 H (<0.60) mg/L FEU Sodium 134 L (137-145) mmol/L Carbon Dioxide (21.6-31.8) mmol/L Anion Gap (4.00-12.00) mmol/L BUN 42 H (9-20) mg/dL Creatinine 2.03 H (0.66-1.25) mg/dL Est GFR (CKD-EPI)AfAm (60.0-200.0) Est GFR (CKD-EPI)NonAf (60.0-200.0) BUN/Creatinine Ratio (12.00-20.00) Ratio Glucose 134 H (74-99) mg/dL POC Glucose (mg/dL) (75-99) mg/dL Calcium (8.7-10.3) mg/dL Ferritin 744.4 H (22.0-322.0) ng/mL Lactate Dehydrogenase 846 H (313-618) U/L C-Reactive Protein 147.9 H (<10.0) mg/L Coronavirus (PCR) (Not Detectd) 08/24/20 08/25/20 08/25/20 Range/Units 17:33 04:13 04:13 Lymphocytes # (1.0-4.8) k/uL PT 23.2 H (9.0-12.0) sec INR 2.24 H (<1.2) APTT (22.0-30.0) sec D-Dimer (<0.60) mg/L FEU Sodium (137-145) mmol/L Carbon Dioxide 20.4 L (21.6-31.8) mmol/L Anion Gap 17.60 H (4.00-12.00) mmol/L BUN 50.0 H (9-20) mg/dL Creatinine 2.1 H (0.66-1.25) mg/dL Est GFR (CKD-EPI)AfAm 33.0 L (60.0-200.0) Est GFR (CKD-EPI)NonAf 28.5 L (60.0-200.0) BUN/Creatinine Ratio 23.81 H (12.00-20.00) Ratio Glucose 256 H (74-99) mg/dL POC Glucose (mg/dL) (75-99) mg/dL Calcium 8.6 L (8.7-10.3) mg/dL Ferritin (22.0-322.0) ng/mL Lactate Dehydrogenase (313-618) U/L C-Reactive Protein (<10.0) mg/L Coronavirus (PCR) Detected A (Not Detectd) 08/25/20 08/25/20 Range/Units 07:45 11:18 Lymphocytes # (1.0-4.8) k/uL PT (9.0-12.0) sec INR (<1.2) APTT (22.0-30.0) sec D-Dimer (<0.60) mg/L FEU Sodium (137-145) mmol/L Carbon Dioxide (21.6-31.8) mmol/L Anion Gap (4.00-12.00) mmol/L BUN (9-20) mg/dL Creatinine (0.66-1.25) mg/dL Est GFR (CKD-EPI)AfAm (60.0-200.0) Est GFR (CKD-EPI)NonAf (60.0-200.0) BUN/Creatinine Ratio (12.00-20.00) Ratio Glucose (74-99) mg/dL POC Glucose (mg/dL) 318 H 218 H (75-99) mg/dL Calcium (8.7-10.3) mg/dL Ferritin (22.0-322.0) ng/mL Lactate Dehydrogenase (313-618) U/L C-Reactive Protein (<10.0) mg/L Coronavirus (PCR) (Not Detectd) Assessment and Plan Assessment: COVID pneumonitis with acute hypoxic respiratory failure and concomitant COPD exacerbation -Continue with Solu-medrol -Duonebs -Supplemental oxygen -Pulmonary consult -Vit C, Vit D, Melatonin, Zinc -Monitor inflammatory markers ROSELYN on CKD -C/w IVFs -Monitor BMP Chronic conditions: Type II DM, COPD, hyperlipidemia, gout, A. fib -Continue with home medications -Lispro insulin sliding scale and blood glucose monitoring -Check A1c DVT prophylaxis -Coumadin The patient is admitted with an anticipated greater than 2 midnight stay for evaluation of COVID CODE STATUS: Full Code Discussed with: Patient Anticipated discharge date: 3-[address]: home
[2020-08-25] MEDS: ESCITALOPRAM 10 MG TAB PO SCH (16:40)
[2020-08-25 16:46] LABS: Glucose,Whole Blood 246 mg/dL (75-99)
--- NOTE | 2020-08-25 17:33 | P.CNPUL ---
History of Present Illness Consult date: 08/25/20 Requesting physician: Yane Portillo Reason for consult: dyspnea, cough Chief complaint: Cough, dyspnea, hypoxic respiratory failure History of present illness: 80-year-old white male patient with past medical history of COPD, coronary artery disease, diabetes mellitus type 2, hypertension, hyperlipidemia, osteoarthritis, chronic kidney disease, cardiomyopathy with AICD placement came into the emergency department on a 2020 for evaluation of worsening cough and dyspnea. Patient was sent in by primary care physician for possible monoclonal antibody infusion. Patient has been having diarrhea, fever and fatigue, his symptom onset was approximately 4-5 days prior to presentation. In the emergency department he was given an infusion of BAM/MERVIN. Subsequently he developed hypoxemia, placed on supplemental oxygen, chest x-ray shows moderate bibasilar opacities concerning for infiltrates, EKG shows paced rhythm. Admission labs show lymphopenia with lymphocyte count of 0.8, increased CBC was unremarkable, d-dimer is 2.18, sodium is 134 and the rest of the electrolytes were unremarkable, BUN 42, creatinine is 2.03, ferritin level is 744, LDH is 846, CRP is 147.9, pro calcitonin level is 0.21. Patient was started IV Solu- Medrol, patient is on Coumadin with INR of 2.24. No acute distress, diarrhea is improving. Review of Systems All systems: negative Constitutional: Denies chills, Denies fever Eyes: denies blurred vision, denies pain Ears, nose, mouth and throat: Denies headache, Denies sore throat Cardiovascular: Denies chest pain, Denies shortness of breath Respiratory: Reports dyspnea, Denies cough Gastrointestinal: Denies abdominal pain, Denies diarrhea, Denies nausea, Denies vomiting Musculoskeletal: Denies myalgias Integumentary: Denies pruritus, Denies rash Neurological: Denies numbness, Denies weakness Psychiatric: Denies anxiety, Denies depression Endocrine: Denies fatigue, Denies weight change Past Medical History Past Medical History: Coronary Artery Disease (CAD), Cancer, COPD, Diabetes Mellitus, Eye Disorder, Hyperlipidemia, Hypertension, Osteoarthritis (OA), Renal Disease Additional Past Medical History / Comment(s): HX SKIN CA, STATES DIET CONTROLLED DIABETIC, currently taking antibiotic for cough & congestion, states cough is better since starting antibiotic, see Dr Giraldo H & P History of Any Multi-Drug Resistant Organisms: None Reported Past Surgical History: AICD, Coronary Bypass/CABG, Heart Catheterization, Heart Catheterization With Stent, Orthopedic Surgery Additional Past Surgical History / Comment(s): lung surgery to remove calcium deposits, left knee ligament repair, excision and skin grafting of skin cancer nose, CABG X3; Cataracts removed, stent for aortic aneurysm Past Anesthesia/Blood Transfusion Reactions: No Reported Reaction Date of Last Stent Placement:: 1999 Type of Cardiac Device: AICD Device Placement Date:: 2009 Past Psychological History: Depression Smoking Status: Never smoker Past Alcohol Use History: Occasional Additional Past Alcohol Use History / Comment(s): QUIT SMOKING APPROX 1977, SMOKED 1PPD FROM AGE 8 Past Drug Use History: None Reported - Past Family History Mother Family Medical History: Cancer Father Family Medical History: CVA/TIA Medications and Allergies Home Medications Medication Instructions Recorded Confirmed Type Atorvastatin [Lipitor] 20 mg PO HS 04/30/16 08/24/20 History Carvedilol [Coreg] 6.25 mg PO BID 04/30/16 08/24/20 History Clopidogrel [Plavix] 75 mg PO DAILY 04/30/16 08/24/20 History Furosemide [Lasix] 40 mg PO DAILY 04/30/16 08/24/20 History Spironolactone [Aldactone] 25 mg PO BID 04/30/16 08/24/20 History Escitalopram [Lexapro] 10 mg PO DAILY 07/11/16 08/24/20 History Budesonide-Formot 160-4.5 Mcg 2 puff INHALATION RT-BID 02/09/18 08/24/20 History [Symbicort 160-4.5 Mcg Inhaler] Albuterol Nebulized [Ventolin 2.5 mg INHALATION RT-Q6H PRN 08/23/19 08/24/20 History Nebulized] Warfarin [Coumadin] 5 mg PO HS 08/23/19 08/24/20 History allopurinoL [Zyloprim] 100 mg PO DAILY 08/23/19 08/24/20 History Glimepiride [Amaryl] 1 mg PO AC-[id number] 09/29/19 08/24/20 History calcitrioL [Rocaltrol] 0.25 mcg PO MOWEFR 08/24/20 08/24/20 History Allergies Allergy/AdvReac Type Severity Reaction Status Date / Time ibuprofen [From Motrin] AdvReac Nausea & Verified 08/24/20 19:33 Vomiting Physical Exam Vitals: Vital Signs Temp Pulse Pulse Pulse Resp BP BP 08/25/20 15:00 98.5 F 60 20 138/80 08/25/20 09:46 97.7 F 91 20 125/84 08/25/20 08:00 16 08/25/20 07:15 98.5 F 60 20 142/81 08/25/20 02:51 97.5 F L 60 18 08/25/20 01:11 97 F L 66 19 140/70 08/24/20 22:43 65 18 146/56 08/24/20 19:58 98.6 F 61 18 139/80 08/24/20 18:19 78 20 131/65 Pulse Ox 08/25/20 15:00 90 L 08/25/20 09:46 91 L 08/25/20 08:00 08/25/20 07:15 91 L 08/25/20 02:51 93 L 08/25/20 01:11 96 08/24/20 22:43 94 L 08/24/20 19:58 93 L 08/24/20 18:19 92 L Intake and Output 08/25/20 08/25/20 08/25/20 06:59 14:59 22:59 Intake Total 360 Balance 360 Intake: Oral 360 Other: # Voids 3 Weight 116.12 kg GENERAL EXAM: Alert, pleasant, 80-year-old white male, 3 L of oxygen pulse ox of 90% comfortable in no apparent distress. HEAD: Normocephalic/atraumatic. EYES: Normal reaction of pupils, equal size. Conjunctiva pink, sclera white. NOSE: Clear with pink turbinates. THROAT: No erythema or exudates. NECK: No masses, no JVD, no thyroid enlargement, no adenopathy. CHEST: No chest wall deformity. Symmetrical expansion. LUNGS: Equal air entry with diffuse crackles CVS: Regular rate and rhythm, normal S1 and S2, no gallops, no murmurs, no rubs ABDOMEN: Soft, nontender. No hepatosplenomegaly, normal bowel sounds, no guarding or rigidity. EXTREMITIES: No clubbing, no edema, no cyanosis, 2+ pulses and upper and lower extremities. MUSCULOSKELETAL: Muscle strength and tone normal. SPINE: No scoliosis or deformity SKIN: No rashes CENTRAL NERVOUS SYSTEM: Alert and oriented -3. No focal deficits, tone is normal in all 4 extremities. PSYCHIATRIC: Alert and oriented -3. Appropriate affect. Intact judgment and insight. Results - Laboratory Findings CBC and BMP: 08/25/20 04:13 08/25/20 04:13 PT/INR, D-dimer PT 23.2 sec (9.9-11.9) H 08/25/20 04:13 INR 2.24 (0.90-1.11) H 08/25/20 04:13 D-Dimer 2.18 mg/L FEU (<0.60) H 08/24/20 16:57 Abnormal lab findings: Abnormal Labs 08/24/20 08/24/20 08/24/20 16:57 16:57 16:57 Lymphocytes # 0.8 L PT 24.0 H INR 2.5 H APTT 39.0 H D-Dimer 2.18 H Sodium 134 L Carbon Dioxide Anion Gap BUN 42 H Creatinine 2.03 H Est GFR (CKD-EPI)AfAm Est GFR (CKD-EPI)NonAf BUN/Creatinine Ratio Glucose 134 H POC Glucose (mg/dL) Calcium Ferritin 744.4 H Lactate Dehydrogenase 846 H C-Reactive Protein 147.9 H Procalcitonin Coronavirus (PCR) 08/24/20 08/24/20 08/25/20 16:57 17:33 04:13 Lymphocytes # PT INR APTT D-Dimer Sodium Carbon Dioxide 20.4 L Anion Gap 17.60 H BUN 50.0 H Creatinine 2.1 H Est GFR (CKD-EPI)AfAm 33.0 L Est GFR (CKD-EPI)NonAf 28.5 L BUN/Creatinine Ratio 23.81 H Glucose 256 H POC Glucose (mg/dL) Calcium 8.6 L Ferritin Lactate Dehydrogenase C-Reactive Protein Procalcitonin 0.21 H Coronavirus (PCR) Detected A 08/25/20 08/25/20 08/25/20 04:13 07:45 11:18 Lymphocytes # PT 23.2 H INR 2.24 H APTT D-Dimer Sodium Carbon Dioxide Anion Gap BUN Creatinine Est GFR (CKD-EPI)AfAm Est GFR (CKD-EPI)NonAf BUN/Creatinine Ratio Glucose POC Glucose (mg/dL) 318 H 218 H Calcium Ferritin Lactate Dehydrogenase C-Reactive Protein Procalcitonin Coronavirus (PCR) 08/25/20 16:37 Lymphocytes # PT INR APTT D-Dimer Sodium Carbon Dioxide Anion Gap BUN Creatinine Est GFR (CKD-EPI)AfAm Est GFR (CKD-EPI)NonAf BUN/Creatinine Ratio Glucose POC Glucose (mg/dL) 246 H Calcium Ferritin Lactate Dehydrogenase C-Reactive Protein Procalcitonin Coronavirus (PCR) - Diagnostic Findings Chest x-ray: report reviewed, image reviewed Assessment and Plan Plan: Assessment: #1. Acute hypoxic respiratory failure related to Covid 19 pneumonia, with onset of symptoms within 4-5 days presentation to the hospital, patient is given a dose of BAM/MERVIN on 08/24/2020, however progressed to acute hypoxic respiratory failure, and we'll start Remdesivir today #2. Inflammatory markers and d-dimer due to the above #3. History of chronic A. fib with history of permanent pacemaker, on Coumadin, and INR is 2. #4. Hypertension #5. Hyperlipidemia #6. Ischemic cardiomyopathy status post Bi-V AICD placement #7. Diabetes mellitus type 2 #8. Osteoarthritis #9. Depression #10. COPD Plan: We'll start the patient on Remdesivir treatment, he is now requiring supplemental oxygen, continue IV steroids, continue Coumadin, we'll continue to follow his clinical course closely, make recommendations accordingly I performed a history & physical examination of the patient and discussed their management with my nurse practitioner, Amira Cabrera. I reviewed the nurse practitioner's note and agree with the documented findings and plan of care. Lung sounds are positive for bibasilar crackles. The findings and the impression was discussed with the patient. I attest to the documentation by the nurse practitioner. Time with Patient: Greater than 30
[2020-08-25] MEDS ORDERED: REMDESIVIR 200 MG in SODIUM CHLORIDE 0.9% 250 ML IVPB ONE (19:00)
[2020-08-25] MEDS: ATORVASTATIN 20 MG TAB PO SCH (20:05)
[2020-08-25 20:06] LABS: Glucose,Whole Blood 348 mg/dL (75-99)
[2020-08-26] MEDS: methylPREDNISolone SOD SUCCI 125 MG/2 ML VIAL IV SCH ×4 (05:03→23:30)
[2020-08-26] MEDS: SODIUM CHLORIDE 0.9% 1,000 ML IV SCH ×2 (05:04→16:41)
[2020-08-26 07:13] LABS: Glucose,Whole Blood 215 mg/dL (75-99)
[2020-08-26] MEDS: ALBUTEROL HFA INHALER INHALATION SCH ×4 (08:17→20:43)
[2020-08-26] MEDS: SYMBICORT 160-4.5 MCG INHALER INHALATION SCH ×2 (08:18→20:44)
[2020-08-26] MEDS: TIOTROPIUM 2.5 MCG INHALER INHALATION SCH (08:18)
[2020-08-26 08:48] LABS: INR 3.7 (<1.2); Prothrombin Time 35.2 sec (9.0-12.0)
[2020-08-26] MEDS: CLOPIDOGREL 75 MG TAB PO SCH (09:08)
[2020-08-26] MEDS: SPIRONOLACTONE 25 MG TAB PO SCH ×2 (09:08→20:40)
[2020-08-26] MEDS: allopurinoL 100 MG TAB PO SCH (09:08)
[2020-08-26] MEDS: CHOLECALCIFEROL 25 MCG (1000 IU) TABLET PO SCH (09:08)
[2020-08-26] MEDS: ESCITALOPRAM 10 MG TAB PO SCH (09:08)
[2020-08-26] MEDS: ASCORBIC ACID 500 MG TAB PO SCH (09:08)
[2020-08-26] MEDS: carvediloL 6.25 MG TAB PO SCH ×2 (09:09→20:40)
[2020-08-26] MEDS: INSULIN ASPART (NovoLOG) 100 UNIT/ML VIAL SQ SCH ×4 (09:09→20:40)
[2020-08-26] MEDS ORDERED: INSULIN DETEMIR (LEVEMIR) 100 UNIT/ML SYR SQ ONE (10:30)
[2020-08-26 11:34] LABS: Glucose,Whole Blood 312 mg/dL (75-99)
--- NOTE | 2020-08-26 12:27 | P.PN ---
Subjective Progress Note Date: 08/26/20 Pt doing well today, able to ambulate on his own without significant dyspnea, but O2 requirement has overall increased. Objective - Vital Signs Vital signs: Vital Signs Temp 98.5 F 08/26/20 09:56 Pulse 50 L 08/26/20 09:56 Resp 20 08/26/20 09:56 BP 146/70 08/26/20 09:56 Pulse Ox 90 L 08/26/20 09:56 Intake & Output 08/25/20 08/26/20 08/26/20 18:59 06:59 18:59 Intake Total 360 Balance 360 Intake: Oral 360 Other: Voiding Method Toilet # Voids 3 2 - Exam Gen: awake, alert HEENT: normocephalic, atraumatic, good hearing acuity, moist mucous membranes Resp: good air exchange, breathing comfortably with no accessory muscle use CVS: good distal perfusion x 4, AICD present in left upper chest GI: soft, NTTP, ND : no SPT, no CVAT, pyle catheter not present MSK: no pitting edema, no clubbing Neuro: non-focal, moving all extremities Psych: cooperative, euthymic mood - Labs CBC & Chem 7: 08/25/20 04:13 08/25/20 04:13 Labs: Abnormal Lab Results - Last 24 Hours (Table) 08/25/20 08/25/20 08/25/20 Range/Units 04:13 16:37 19:53 PT (9.0-12.0) sec INR (<1.2) POC Glucose (mg/dL) 246 H 348 H (75-99) mg/dL Hemoglobin A1c 7.5 H (4.0-6.0) % 08/26/20 08/26/20 08/26/20 Range/Units 07:09 08:01 11:31 PT 35.2 H (9.0-12.0) sec INR 3.7 H (<1.2) POC Glucose (mg/dL) 215 H 312 H (75-99) mg/dL Hemoglobin A1c (4.0-6.0) % Assessment and Plan Assessment: COVID pneumonitis with acute hypoxic respiratory failure and concomitant COPD exacerbation -Continue with Solu-medrol -Duonebs -Supplemental oxygen -Pulmonary consult -Vit C, Vit D, Melatonin, Zinc -Monitor inflammatory markers ROSELYN on CKD -C/w IVFs -Monitor BMP Chronic conditions: Type II DM, COPD, hyperlipidemia, gout, A. fib -Continue with home medications -Lispro insulin sliding scale and blood glucose monitoring -Check A1c DVT prophylaxis -Coumadin The patient is admitted with an anticipated greater than 2 midnight stay for evaluation of COVID CODE STATUS: Full Code Discussed with: Patient Anticipated discharge date: 3-[address]: home
--- NOTE | 2020-08-26 12:44 | P.PN ---
Subjective Progress Note Date: 08/26/20 Principal diagnosis: Acute hypoxic respiratory failure secondary to coVID 19 pneumonia 80-year-old white male patient with past medical history of COPD, coronary artery disease, diabetes mellitus type 2, hypertension, hyperlipidemia, osteoarthritis, chronic kidney disease, cardiomyopathy with AICD placement came into the emergency department on a 2020 for evaluation of worsening cough and dyspnea. Patient was sent in by primary care physician for possible monoclonal antibody infusion. Patient has been having diarrhea, fever and fatigue, his symptom onset was approximately 4-5 days prior to presentation. In the emergency department he was given an infusion of BAM/MERVIN. Subsequently he developed hypoxemia, placed on supplemental oxygen, chest x-ray shows moderate bibasilar opacities concerning for infiltrates, EKG shows paced rhythm. Admission labs show lymphopenia with lymphocyte count of 0.8, increased CBC was unremarkable, d-dimer is 2.18, sodium is 134 and the rest of the electrolytes were unremarkable, BUN 42, creatinine is 2.03, ferritin level is 744, LDH is 846, CRP is 147.9, pro calcitonin level is 0.21. Patient was started IV Solu- Medrol, patient is on Coumadin with INR of 2.24. No acute distress, diarrhea is improving. Patient was reevaluated today on 08/26/2020, feels better, he is on 5 L nasal cannula, and his O2 sats is 90%. Patient does have shortness of breath with activity. Intermittent cough, no wheezing. His INR today is 3.7, d-dimer 2.18 on admission. BUN is 50 creatinine 2.1. LDH 846 C-reactive protein 148. Objective - Vital Signs Vital signs: Vital Signs Temp 98.5 F 08/26/20 09:56 Pulse 50 L 08/26/20 09:56 Resp 20 08/26/20 09:56 BP 146/70 08/26/20 09:56 Pulse Ox 90 L 08/26/20 09:56 Intake & Output 08/25/20 08/26/20 08/26/20 18:59 06:59 18:59 Intake Total 360 Balance 360 Intake: Oral 360 Other: Voiding Method Toilet # Voids 3 2 - Exam Physical Exam: Revealed a very pleasant 80-year-old white male at a bedside chair, on 5 L nasal cannula. Not in distress. Head: Atraumatic, normocephalic. HEENT:[Neck is supple.] [No neck masses.] [No thyromegaly.] [No JVD.] Chest: Symmetrical chest expansion, crackles at the bases no rhonchi and no wheezes.] Cardiac Exam: [Normal S1 and S2, no S3 gallop, no murmur.] Abdomen: Obese, [Soft, nontender, no megaly, no rebound, no guarding, normal bowel sounds.] Extremities: [No clubbing, no edema, no cyanosis.] Good pulses bilaterally. Neurological Exam: [No focal neurologic deficit.] Alert and oriented 3. Psychiatric: Normal mood affect and normal mental status examination. Skin: No rashes - Labs CBC & Chem 7: 08/25/20 04:13 08/25/20 04:13 Labs: Abnormal Lab Results - Last 24 Hours (Table) 08/25/20 08/25/20 08/25/20 Range/Units 04:13 16:37 19:53 PT (9.0-12.0) sec INR (<1.2) POC Glucose (mg/dL) 246 H 348 H (75-99) mg/dL Hemoglobin A1c 7.5 H (4.0-6.0) % 08/26/20 08/26/20 08/26/20 Range/Units 07:09 08:01 11:31 PT 35.2 H (9.0-12.0) sec INR 3.7 H (<1.2) POC Glucose (mg/dL) 215 H 312 H (75-99) mg/dL Hemoglobin A1c (4.0-6.0) % Assessment and Plan Assessment: Impression: Acute hypoxic respiratory failure secondary to coVID 19 pneumonia Elevated inflammatory markers secondary to above. Chronic atrial fibrillation maintained on beta blockers and Coumadin History of ischemic cardiomyopathy previous AICD placement Benign essential hypertension Type 2 diabetes Underlying COPD presently inactive. Recommendation: Patient received BAM/ETE on 08/24, however his pulmonary status progressed in spite of the monoclonal antibody treatment. Patient is now on REM. Continue Covid 19 cocktail. Continue Coumadin. Continue Decadron. Titrate oxygen accordingly maintain O2 saturation above 90%. Continue bronchodilators. Continue methylprednisolone 60 mg IV push every 6 hours. Prognosis is relatively guarded, we'll continue to follow Time with Patient: Less than 30
[2020-08-26 16:45] LABS: Glucose,Whole Blood 283 mg/dL (75-99)
[2020-08-26] MEDS ORDERED: WARFARIN 0.5 MG TAB PO ONE (18:00)
[2020-08-26 20:32] LABS: Glucose,Whole Blood 272 mg/dL (75-99)
[2020-08-26] MEDS: ATORVASTATIN 20 MG TAB PO SCH (20:40)
[2020-08-26] MEDS: MELATONIN 5 MG TABLET PO PRN (20:40)
[2020-08-26] MEDS: INSULIN DETEMIR (LEVEMIR) 100 UNIT/ML SYR SQ SCH (20:41)
[2020-08-26] MEDS: REMDESIVIR 100 MG in SODIUM CHLORIDE 0.9% 250 ML IVPB SCH (20:41)
[2020-08-27] MEDS: methylPREDNISolone SOD SUCCI 125 MG/2 ML VIAL IV SCH ×3 (06:11→17:25)
[2020-08-27 07:17] LABS: INR 4.8 (<1.2)
[2020-08-27 07:21] LABS: Glucose,Whole Blood 269 mg/dL (75-99)
[2020-08-27] MEDS: CLOPIDOGREL 75 MG TAB PO SCH (08:55)
[2020-08-27] MEDS: allopurinoL 100 MG TAB PO SCH (08:55)
[2020-08-27] MEDS: ESCITALOPRAM 10 MG TAB PO SCH (08:55)
[2020-08-27] MEDS: SPIRONOLACTONE 25 MG TAB PO SCH ×2 (08:55→19:08)
[2020-08-27] MEDS: ASCORBIC ACID 500 MG TAB PO SCH (08:55)
[2020-08-27] MEDS: CHOLECALCIFEROL 25 MCG (1000 IU) TABLET PO SCH (08:56)
[2020-08-27] MEDS: carvediloL 6.25 MG TAB PO SCH ×2 (08:56→19:08)
[2020-08-27] MEDS: INSULIN ASPART (NovoLOG) 100 UNIT/ML VIAL SQ SCH ×4 (08:56→20:48)
[2020-08-27] MEDS: SODIUM CHLORIDE 0.9% 1,000 ML IV SCH ×2 (08:57→20:48)
[2020-08-27] MEDS: TIOTROPIUM 2.5 MCG INHALER INHALATION SCH (08:58)
[2020-08-27] MEDS: ALBUTEROL HFA INHALER INHALATION SCH ×4 (08:58→20:45)
[2020-08-27] MEDS: SYMBICORT 160-4.5 MCG INHALER INHALATION SCH ×2 (08:58→20:45)
[2020-08-27 11:47] LABS: Glucose,Whole Blood 306 mg/dL (75-99)
--- NOTE | 2020-08-27 13:18 | P.PN ---
Subjective Progress Note Date: 08/27/20 No new complaints today. Patient appears clinically comfortable, in NAD. Has had slight increase in oxygen demand. Objective - Vital Signs Vital signs: Vital Signs Temp 97.4 F L 08/27/20 10:00 Pulse 53 L 08/27/20 10:00 Resp 16 08/27/20 10:00 BP 122/73 08/27/20 10:00 Pulse Ox 93 L 08/27/20 10:00 Intake & Output 08/26/20 08/27/20 08/27/20 18:59 06:59 18:59 Output Total 600 Balance -600 Output: Urine 600 Other: Voiding Method Toilet Urinal Diaper Incontinent # Voids 1 - Exam Gen: awake, alert HEENT: normocephalic, atraumatic, good hearing acuity, moist mucous membranes Resp: good air exchange, breathing comfortably with no accessory muscle use CVS: good distal perfusion x 4, AICD present in left upper chest GI: soft, NTTP, ND : no SPT, no CVAT, pyle catheter not present MSK: no pitting edema, no clubbing Neuro: non-focal, moving all extremities Psych: cooperative, euthymic mood - Labs CBC & Chem 7: 08/25/20 04:13 08/25/20 04:13 Labs: Abnormal Lab Results - Last 24 Hours (Table) 08/26/20 08/26/20 08/27/20 Range/Units 16:36 20:31 06:38 PT 46.0 H (9.0-12.0) sec INR 4.8 H (<1.2) POC Glucose (mg/dL) 283 H 272 H (75-99) mg/dL 08/27/20 08/27/20 Range/Units 06:57 11:46 PT (9.0-12.0) sec INR (<1.2) POC Glucose (mg/dL) 269 H 306 H (75-99) mg/dL Assessment and Plan Assessment: COVID pneumonitis with acute hypoxic respiratory failure and concomitant COPD exacerbation -Continue with Solu-medrol -Duonebs -Supplemental oxygen -Pulmonary consult -Vit C, Vit D, Melatonin, Zinc -Monitor inflammatory markers ROSELYN on CKD -C/w IVFs -Monitor BMP Chronic conditions: Type II DM, COPD, hyperlipidemia, gout, A. fib -Continue with home medications -Lispro insulin sliding scale and blood glucose monitoring -Check A1c DVT prophylaxis -Coumadin The patient is admitted with an anticipated greater than 2 midnight stay for evaluation of COVID CODE STATUS: Full Code Discussed with: Patient Anticipated discharge date: 3-[address]: home
[2020-08-27] MEDS ORDERED: FUROSEMIDE 10 MG/ML 4 ML VIAL IV STA (14:13)
--- NOTE | 2020-08-27 16:03 | P.PN ---
Subjective Progress Note Date: 08/27/20 Principal diagnosis: Covid 19 pneumonia 80-year-old white male patient with past medical history of COPD, coronary artery disease, diabetes mellitus type 2, hypertension, hyperlipidemia, osteoarthritis, chronic kidney disease, cardiomyopathy with AICD placement came into the emergency department on a 2020 for evaluation of worsening cough and dyspnea. Patient was sent in by primary care physician for possible monoclonal antibody infusion. Patient has been having diarrhea, fever and fatigue, his symptom onset was approximately 4-5 days prior to presentation. In the emerg ency department he was given an infusion of BAM/MERVIN. Subsequently he developed hypoxemia, placed on supplemental oxygen, chest x-ray shows moderate bibasilar opacities concerning for infiltrates, EKG shows paced rhythm. Admission labs show lymphopenia with lymphocyte count of 0.8, increased CBC was unremarkable, d-dimer is 2.18, sodium is 134 and the rest of the electrolytes were unremarkable, BUN 42, creatinine is 2.03, ferritin level is 744, LDH is 846, CRP is 147.9, pro calcitonin level is 0.21. Patient was started IV Solu-Medrol, patient is on Coumadin with INR of 2.24. No acute distress, diarrhea is improving. Patient was reevaluated today on 08/26/2020, feels better, he is on 5 L nasal cannula, and his O2 sats is 90%. Patient does have shortness of breath with activity. Intermittent cough, no wheezing. His INR today is 3.7, d-dimer 2.18 on admission. BUN is 50 creatinine 2.1. LDH 846 C-reactive protein 148. On 08/27/2020 patient seen in follow-up medical floor, he is on 3 L of oxygen his pulse ox is 86%, and his FiO2 was diabetic up to 5 L and he is satting about 90%, he is on Remdesivir D to treatment, he is up in the chair, feeling weak but overall reports no worsening dyspnea. Mild edema in his lower extremities, we'll give the patient a dose of IV Lasix 40 mg, he continues on Solu-Medrol 60 mg every 6 hours, vitamins, he is on Symbicort, is on Coumadin for history of A. fib. His INR is 4.8 today. Chest pain, no hemoptysis, recent chest x-ray. No nausea vomiting or diarrhea. Objective - Vital Signs Vital signs: Vital Signs Temp 98.2 F 08/27/20 14:00 Pulse 52 L 08/27/20 14:00 Resp 18 08/27/20 14:00 BP 136/69 08/27/20 14:00 Pulse Ox 90 L 08/27/20 14:00 Intake & Output 08/26/20 08/27/20 08/27/20 18:59 06:59 18:59 Output Total 600 Balance -600 Output: Urine 600 Other: Voiding Method Toilet Urinal Diaper Incontinent # Voids 1 - Exam GENERAL EXAM: Alert, pleasant, 80-year-old white male, 5 L of oxygen pulse ox of 93% comfortable in no apparent distress. HEAD: Normocephalic/atraumatic. EYES: Normal reaction of pupils, equal size. Conjunctiva pink, sclera white. NOSE: Clear with pink turbinates. THROAT: No erythema or exudates. NECK: No masses, no JVD, no thyroid enlargement, no adenopathy. CHEST: No chest wall deformity. Symmetrical expansion. LUNGS: Equal air entry with diffuse crackles CVS: Regular rate and rhythm, normal S1 and S2, no gallops, no murmurs, no rubs ABDOMEN: Soft, nontender. No hepatosplenomegaly, normal bowel sounds, no guarding or rigidity. EXTREMITIES: No clubbing, no edema, no cyanosis, 2+ pulses and upper and lower extremities. MUSCULOSKELETAL: Muscle strength and tone normal. SPINE: No scoliosis or deformity SKIN: No rashes CENTRAL NERVOUS SYSTEM: Alert and oriented -3. No focal deficits, tone is normal in all 4 extremities. PSYCHIATRIC: Alert and oriented -3. Appropriate affect. Intact judgment and insight. - Labs CBC & Chem 7: 08/25/20 04:13 08/25/20 04:13 Labs: Abnormal Lab Results - Last 24 Hours (Table) 08/26/20 08/26/20 08/27/20 Range/Units 16:36 20:31 06:38 PT 46.0 H (9.0-12.0) sec INR 4.8 H (<1.2) POC Glucose (mg/dL) 283 H 272 H (75-99) mg/dL 08/27/20 08/27/20 Range/Units 06:57 11:46 PT (9.0-12.0) sec INR (<1.2) POC Glucose (mg/dL) 269 H 306 H (75-99) mg/dL Assessment and Plan Plan: Assessment: #1. Acute hypoxic respiratory failure related to Covid 19 pneumonia, with onset of symptoms within 4-5 days presentation to the hospital, patient is given a dose of BAM/MERVIN on 08/24/2020, however progressed to acute hypoxic respiratory failure, and we'll start Remdesivir today #2. Inflammatory markers and d-dimer due to the above #3. History of chronic A. fib with history of permanent pacemaker, on Coumadin, and INR is 2. #4. Hypertension #5. Hyperlipidemia #6. Ischemic cardiomyopathy status post Bi-V AICD placement #7. Diabetes mellitus type 2 #8. Osteoarthritis #9. Depression #10. COPD Plan: Continue current medical treatment, will give the patient 1 dose of IV Lasix today, continue same dose IV Solu-Medrol, today is day 3 of Remdesivir, we'll continue to follow his clinical course, obtain a follow-up BMP, follow-up chest x-ray tomorrow I performed a history & physical examination of the patient and discussed their management with my nurse practitioner, Amira Cabrera. I reviewed the nurse pra ctitioner's note and agree with the documented findings and plan of care. Lung sounds are positive for bibasilar crackles. The findings and the impression was discussed with the patient. I attest to the documentation by the nurse practitioner. Time with Patient: Less than 30
[2020-08-27 16:32] LABS: Glucose,Whole Blood 344 mg/dL (75-99)
[2020-08-27] MEDS ORDERED: WARFARIN 0.5 MG TAB PO ONE (18:00)
[2020-08-27] MEDS: ATORVASTATIN 20 MG TAB PO SCH (19:08)
[2020-08-27] MEDS: REMDESIVIR 100 MG in SODIUM CHLORIDE 0.9% 250 ML IVPB SCH (19:08)
[2020-08-27 20:09] LABS: Glucose,Whole Blood 350 mg/dL (75-99)
[2020-08-27] MEDS: INSULIN DETEMIR (LEVEMIR) 100 UNIT/ML SYR SQ SCH (20:47)
[2020-08-28] MEDS: methylPREDNISolone SOD SUCCI 125 MG/2 ML VIAL IV SCH ×3 (00:19→13:35)
[2020-08-28 06:54] LABS: Glucose,Whole Blood 298 mg/dL (75-99)
[2020-08-28 06:55] LABS: African American GFR (CKD) 51 (>60 ml/min/1.73 sqM); Anion Gap 9 mmol/L; Blood Urea Nitrogen 57 mg/dL (9-20); C Reactive Protein 22.5 mg/L (<10.0); Calcium 7.8 mg/dL (8.4-10.2); Carbon Dioxide 22 mmol/L (22-30); Chloride 105 mmol/L (98-107); Glucose 314 mg/dL (74-99); Non-African American GFR(CKD) 44 (>60 ml/min/1.73 sqM); Sodium 136 mmol/L (137-145)
[2020-08-28 07:02] LABS: LDH 1119 U/L (313-618)
[2020-08-28 07:05] LABS: INR 3.3 (<1.2)
[2020-08-28] MEDS: SYMBICORT 160-4.5 MCG INHALER INHALATION SCH ×2 (09:15→17:50)
[2020-08-28] MEDS: ALBUTEROL HFA INHALER INHALATION SCH ×4 (09:15→20:22)
[2020-08-28] MEDS: TIOTROPIUM 2.5 MCG INHALER INHALATION SCH (09:16)
--- NOTE | 2020-08-28 09:21 | XR ---
EXAMINATION TYPE: XR chest 1V portable DATE OF EXAM: 08/28/2020 COMPARISON: 08/24/2020 HISTORY: Shortness of breath TECHNIQUE: Single frontal view of the chest is obtained. FINDINGS: There is bilateral interstitial infiltrates with cardiac device and postsurgical changes. Arthropathy of the shoulders. No pneumothorax. Right-sided surgical change noted. Elevated hemidiaphr agm on the right. Could not exclude an epicardial lead. Correlate clinically. IMPRESSION: 1. Patchy bilateral infiltrate stable.
[2020-08-28] MEDS: CHOLECALCIFEROL 25 MCG (1000 IU) TABLET PO SCH (09:32)
[2020-08-28] MEDS: CLOPIDOGREL 75 MG TAB PO SCH (09:33)
[2020-08-28] MEDS: INSULIN ASPART (NovoLOG) 100 UNIT/ML VIAL SQ SCH ×4 (09:33→21:27)
[2020-08-28] MEDS: allopurinoL 100 MG TAB PO SCH (09:33)
[2020-08-28] MEDS: SPIRONOLACTONE 25 MG TAB PO SCH ×2 (09:33→20:34)
[2020-08-28] MEDS: ESCITALOPRAM 10 MG TAB PO SCH (09:33)
[2020-08-28] MEDS: carvediloL 6.25 MG TAB PO SCH ×2 (09:33→20:34)
[2020-08-28] MEDS: ASCORBIC ACID 500 MG TAB PO SCH (09:36)
[2020-08-28 12:09] LABS: Glucose,Whole Blood 417 mg/dL (75-99)
[2020-08-28] MEDS ORDERED: INSULIN REGULAR 100 UNIT/ML VIAL (IV) SQ ONE ×2 (12:29→17:00)
[2020-08-28] MEDS ORDERED: FUROSEMIDE 10 MG/ML 4 ML VIAL IV STA (12:29)
--- NOTE | 2020-08-28 12:29 | P.PN ---
Subjective Progress Note Date: 08/28/20 80-year-old white male patient with past medical history of COPD, coronary artery disease, diabetes mellitus type 2, hypertension, hyperlipidemia, osteoarthritis, chronic kidney disease, cardiomyopathy with AICD placement came into the emergency department on a 2020 for evaluation of worsening cough and dyspnea. Patient was sent in by primary care physician for possible monoclonal antibody infusion. Patient has been having diarrhea, fever and fatigue, his symptom onset was approximately 4-5 days prior to presentation. In the emergency department he was given an infusion of BAM/MERVIN. Subsequently he developed hypoxemia, placed on supplemental oxygen, chest x-ray shows moderate bibasilar opacities concerning for infiltrates, EKG shows paced rhythm. Admission labs show lymphopenia with lymphocyte count of 0.8, increased CBC was unremarkable, d-dimer is 2.18, sodium is 134 and the rest of the electrolytes were unremarkable, BUN 42, creatinine is 2.03, ferritin level is 744, LDH is 846, CRP is 147.9, pro calcitonin level is 0.21. Patient was started IV Solu- Medrol, patient is on Coumadin with INR of 2.24. No acute distress, diarrhea is improving. Patient was reevaluated today on 08/26/2020, feels better, he is on 5 L nasal cannula, and his O2 sats is 90%. Patient does have shortness of breath with activity. Intermittent cough, no wheezing. His INR today is 3.7, d-dimer 2.18 on admission. BUN is 50 creatinine 2.1. LDH 846 C-reactive protein 148. On 08/27/2020 patient seen in follow-up medical floor, he is on 3 L of oxygen his pulse ox is 86%, and his FiO2 was diabetic up to 5 L and he is satting about 90%, he is on Remdesivir D to treatment, he is up in the chair, feeling weak but overall reports no worsening dyspnea. Mild edema in his lower extremities, we'll give the patient a dose of IV Lasix 40 mg, he continues on Solu-Medrol 60 mg every 6 hours, vitamins, he is on Symbicort, is on Coumadin for history of A. fib. His INR is 4.8 today. Chest pain, no hemoptysis, recent chest x-ray. No nausea vomiting or diarrhea. 08/28/2020 the patient is on 5 L about 2 by nasal cannula. The patient is an 78-year-old male patient with multiple medical problems and comorbidities and code 19 related pneumonia. The patient was hospitalized for shortness of breath and hypoxic respiratory failure. The patient is currently on 5 L and the patient is also on IV Solu Medrol 60 mg every 6 hours. He is also completing a course of Remdesivir day #3. He was noted to have some increased swelling in lower extremity bilaterally and the patient was also given IV Lasix yesterday with good response. She has chronic atrial fibrillation. His INR today is at 3.3. The patient's chest x-ray is showing stable bilateral pulmonary infiltrates, peripheral distribution, and the patient has a pacemaker/AICD over the left anterior chest area. Note that he is diabetic and he also has hypertension and hyperlipidemia and chronic kidney disease with cardiomyopathy and the patient has an AICD in place. Creatinine is. One point for it's improved compared to the earlier levels. Objective - Vital Signs Vital signs: Vital Signs Temp 96.9 F L 08/28/20 10:00 Pulse 58 L 08/28/20 10:00 Resp 18 08/28/20 10:00 BP 119/69 08/28/20 10:00 Pulse Ox 91 L 08/28/20 10:00 Intake & Output 08/27/20 08/28/20 08/28/20 18:59 06:59 18:59 Output Total 1550 Balance -1550 Output: Urine 1550 Other: Voiding Method Toilet Urinal Diaper Incontinent # Voids 6 6 # Bowel Movements 2 2 - Exam GENERAL EXAM: Alert, pleasant, 80-year-old white male, 5 L of oxygen pulse ox of 93% comfortable in no apparent distress. HEAD: Normocephalic/atraumatic. EYES: Normal reaction of pupils, equal size. Conjunctiva pink, sclera white. NOSE: Clear with pink turbinates. THROAT: No erythema or exudates. NECK: No masses, no JVD, no thyroid enlargement, no adenopathy. CHEST: No chest wall deformity. Symmetrical expansion. LUNGS: Equal air entry with diffuse crackles CVS: Regular rate and rhythm, normal S1 and S2, no gallops, no murmurs, no rubs ABDOMEN: Soft, nontender. No hepatosplenomegaly, normal bowel sounds, no guarding or rigidity. EXTREMITIES: No clubbing, no edema, no cyanosis, 2+ pulses and upper and lower extremities. MUSCULOSKELETAL: Muscle strength and tone normal. SPINE: No scoliosis or deformity SKIN: No rashes CENTRAL NERVOUS SYSTEM: Alert and oriented -3. No focal deficits, tone is normal in all 4 extremities. PSYCHIATRIC: Alert and oriented -3. Appropriate affect. Intact judgment and insight. - Labs CBC & Chem 7: 08/25/20 04:13 08/28/20 05:29 Labs: Abnormal Lab Results - Last 24 Hours (Table) 08/27/20 08/27/20 08/28/20 Range/Units 16:31 20:07 05:29 PT (9.0-12.0) sec INR (<1.2) Sodium 136 L (137-145) mmol/L BUN 57 H (9-20) mg/dL Creatinine 1.47 H (0.66-1.25) mg/dL Glucose 314 H (74-99) mg/dL POC Glucose (mg/dL) 344 H 350 H (75-99) mg/dL Calcium 7.8 L (8.4-10.2) mg/dL Lactate Dehydrogenase 1119 H (313-618) U/L C-Reactive Protein 22.5 H (<10.0) mg/L 08/28/20 08/28/20 08/28/20 Range/Units 05:29 06:52 12:08 PT 32.0 H (9.0-12.0) sec INR 3.3 H (<1.2) Sodium (137-145) mmol/L BUN (9-20) mg/dL Creatinine (0.66-1.25) mg/dL Glucose (74-99) mg/dL POC Glucose (mg/dL) 298 H 417 H (75-99) mg/dL Calcium (8.4-10.2) mg/dL Lactate Dehydrogenase (313-618) U/L C-Reactive Protein (<10.0) mg/L Assessment and Plan Plan: #1. Acute hypoxic respiratory failure related to Covid 19 pneumonia, with onset of symptoms within 4-5 days presentation to the hospital, patient is given a dose of BAM/MERVIN on 08/24/2020, however progressed to acute hypoxic respiratory failure, and he is currently on 5 L of oxygen by nasal cannula, he is on IV Solu-Medrol and he is also on Remdesivir day #4 #2. Inflammatory markers and d-dimer due to the above #3. History of chronic A. fib with history of permanent pacemaker, on Coumadin, and INR is 3.3 #4. Hypertension #5. Hyperlipidemia #6. Ischemic cardiomyopathy status post Bi-V AICD placement #7. Diabetes mellitus type 2 #8. Osteoarthritis #9. Depression #10. COPD #11, acute on chronic kidney failure, improving Plan: Continue current medical treatment, will give additional dose of IV Lasix today, continue the steroids and stopped IV Solu-Medrol and put the patient on Decadron 6 mg by mouth daily, today is day 4 of Remdesivir, we'll continue to follow his clinical course, obtain a follow-up BMP, follow-up chest x-ray tomorrow
--- NOTE | 2020-08-28 16:07 | P.PN ---
Subjective Progress Note Date: 08/28/20 Feels okay, 5 L of oxygen. No chest pain or abdominal pain, no nausea or vomiting Objective - Vital Signs Vital signs: Vital Signs Temp 96.9 F L 08/28/20 10:00 Pulse 58 L 08/28/20 10:00 Resp 18 08/28/20 10:00 BP 119/69 08/28/20 10:00 Pulse Ox 91 L 08/28/20 10:00 Intake & Output 08/27/20 08/28/20 08/28/20 18:59 06:59 18:59 Output Total 1550 Balance -1550 Output: Urine 1550 Other: Voiding Method Toilet Urinal Diaper Incontinent # Voids 6 6 # Bowel Movements 2 2 - Exam Gen: awake, alert HEENT: normocephalic, atraumatic Resp: decreased Breath sounds, no wheezing CVS: good distal perfusion x 4, AICD present in left upper chest GI: soft, NTTP, ND : no SPT, no CVAT, pyle catheter not present MSK: no cce Neuro: non-focal, moving all extremities Psych: cooperative - Labs CBC & Chem 7: 08/25/20 04:13 08/28/20 05:29 Labs: Abnormal Lab Results - Last 24 Hours (Table) 08/27/20 08/27/20 08/28/20 Range/Units 16:31 20:07 05:29 PT (9.0-12.0) sec INR (<1.2) Sodium 136 L (137-145) mmol/L BUN 57 H (9-20) mg/dL Creatinine 1.47 H (0.66-1.25) mg/dL Glucose 314 H (74-99) mg/dL POC Glucose (mg/dL) 344 H 350 H (75-99) mg/dL Calcium 7.8 L (8.4-10.2) mg/dL Lactate Dehydrogenase 1119 H (313-618) U/L C-Reactive Protein 22.5 H (<10.0) mg/L 08/28/20 08/28/20 08/28/20 Range/Units 05:29 06:52 12:08 PT 32.0 H (9.0-12.0) sec INR 3.3 H (<1.2) Sodium (137-145) mmol/L BUN (9-20) mg/dL Creatinine (0.66-1.25) mg/dL Glucose (74-99) mg/dL POC Glucose (mg/dL) 298 H 417 H (75-99) mg/dL Calcium (8.4-10.2) mg/dL Lactate Dehydrogenase (313-618) U/L C-Reactive Protein (<10.0) mg/L Assessment and Plan Plan: COVID pneumonitis with acute hypoxic respiratory failure and concomitant COPD exacerbation -Continue with Solu-medrol -Duonebs -Supplemental oxygen -Pulmonary consult, input appreciated on remdesivir -Vit C, Vit D, Melatonin, Zinc On 5 L oxygen ROSELYN on CKD -C/w IVFs -Monitor BMP Serum creatinine steady at steady at 2 , monitor Chronic conditions: Type II DM, COPD, hyperlipidemia, gout, A. fib -Continue with home medications -Lispro insulin sliding scale and blood glucose monitoring weakness: Consult PT/OT DVT prophylaxis -Coumadin INR 2.5 The patient is admitted with an anticipated greater than 2 midnight stay for evaluation of COVID CODE STATUS: Full Code Discussed with: Patient Anticipated discharge date: 3-[address]: home vs rehab
[2020-08-28 16:53] LABS: Glucose,Whole Blood 482 mg/dL (75-99)
[2020-08-28] MEDS ORDERED: WARFARIN 2.5 MG TAB PO ONE (18:00)
[2020-08-28] MEDS: REMDESIVIR 100 MG in SODIUM CHLORIDE 0.9% 250 ML IVPB SCH (20:17)
[2020-08-28] MEDS: SODIUM CHLORIDE 0.9% 1,000 ML IV SCH (20:24)
[2020-08-28] MEDS: ATORVASTATIN 20 MG TAB PO SCH (20:34)
[2020-08-28 21:11] LABS: Glucose,Whole Blood 356 mg/dL (75-99)
[2020-08-28] MEDS: INSULIN DETEMIR (LEVEMIR) 100 UNIT/ML SYR SQ SCH (21:27)
[2020-08-29 06:44] LABS: Basophils % (A) 0 %; Eosinophils % (A) 0 %; HCT 47.6 % (39.0-53.0); HGB 16.1 gm/dL (13.0-17.5); Lymphocytes # (A) 0.3 k/uL (1.0-4.8); Lymphocytes % (A) 3 %; MCH 32.2 pg (25.0-35.0); MCHC 33.8 g/dL (31.0-37.0); MCV 95.1 fL (80.0-100.0); Mean Platelet Volume 7.2; Monocytes # (A) 0.8 k/uL (0-1.0); Monocytes % (A) 7 %; Neutrophils # (A) 11.1 k/uL (1.3-7.7); Neutrophils % (A) 89 %; Platelet Count 227 k/uL (150-450); RBC 5.01 m/uL (4.30-5.90); RDW 13.4 % (11.5-15.5); WBC 12.5 k/uL (3.8-10.6)
[2020-08-29 06:56] LABS: INR 3.1 (<1.2)
[2020-08-29 07:07] LABS: Glucose,Whole Blood 272 mg/dL (75-99)
[2020-08-29] MEDS: carvediloL 6.25 MG TAB PO SCH ×2 (07:47→20:42)
[2020-08-29] MEDS: INSULIN ASPART (NovoLOG) 100 UNIT/ML VIAL SQ SCH ×4 (07:47→20:41)
[2020-08-29] MEDS: ASCORBIC ACID 500 MG TAB PO SCH (07:48)
[2020-08-29] MEDS: CLOPIDOGREL 75 MG TAB PO SCH (07:48)
[2020-08-29] MEDS: CHOLECALCIFEROL 25 MCG (1000 IU) TABLET PO SCH (07:48)
[2020-08-29] MEDS: SPIRONOLACTONE 25 MG TAB PO SCH ×2 (07:48→20:42)
[2020-08-29] MEDS: allopurinoL 100 MG TAB PO SCH (07:48)
[2020-08-29] MEDS: ESCITALOPRAM 10 MG TAB PO SCH (07:49)
[2020-08-29] MEDS: TIOTROPIUM 2.5 MCG INHALER INHALATION SCH (08:02)
[2020-08-29] MEDS: ALBUTEROL HFA INHALER INHALATION SCH ×4 (08:02→21:19)
[2020-08-29] MEDS: SYMBICORT 160-4.5 MCG INHALER INHALATION SCH ×2 (08:02→21:19)
[2020-08-29] MEDS ORDERED: dexAMETHasone 4 MG TAB PO SCH (09:00)
[2020-08-29 11:59] LABS: Glucose,Whole Blood 266 mg/dL (75-99)
--- NOTE | 2020-08-29 12:37 | P.PN ---
Subjective Progress Note Date: 08/29/20 80-year-old white male patient with past medical history of COPD, coronary artery disease, diabetes mellitus type 2, hypertension, hyperlipidemia, osteoarthritis, chronic kidney disease, cardiomyopathy with AICD placement came into the emergency department on a 2020 for evaluation of worsening cough and dyspnea. Patient was sent in by primary care physician for possible monoclonal antibody infusion. Patient has been having diarrhea, fever and fatigue, his symptom onset was approximately 4-5 days prior to presentation. In the emergency department he was given an infusion of BAM/MERVIN. Subsequently he developed hypoxemia, placed on supplemental oxygen, chest x-ray shows moderate bibasilar opacities concerning for infiltrates, EKG shows paced rhythm. Admission labs show lymphopenia with lymphocyte count of 0.8, increased CBC was unremarkable, d-dimer is 2.18, sodium is 134 and the rest of the electrolytes were unremarkable, BUN 42, creatinine is 2.03, ferritin level is 744, LDH is 846, CRP is 147.9, pro calcitonin level is 0.21. Patient was started IV Solu- Medrol, patient is on Coumadin with INR of 2.24. No acute distress, diarrhea is improving. Patient was reevaluated today on 08/26/2020, feels better, he is on 5 L nasal cannula, and his O2 sats is 90%. Patient does have shortness of breath with activity. Intermittent cough, no wheezing. His INR today is 3.7, d-dimer 2.18 on admission. BUN is 50 creatinine 2.1. LDH 846 C-reactive protein 148. On 08/27/2020 patient seen in follow-up medical floor, he is on 3 L of oxygen his pulse ox is 86%, and his FiO2 was diabetic up to 5 L and he is satting about 90%, he is on Remdesivir D to treatment, he is up in the chair, feeling weak but overall reports no worsening dyspnea. Mild edema in his lower extremities, we'll give the patient a dose of IV Lasix 40 mg, he continues on Solu-Medrol 60 mg every 6 hours, vitamins, he is on Symbicort, is on Coumadin for history of A. fib. His INR is 4.8 today. Chest pain, no hemoptysis, recent chest x-ray. No nausea vomiting or diarrhea. 08/28/2020 the patient is on 5 L about 2 by nasal cannula. The patient is an 78-year-old male patient with multiple medical problems and comorbidities and covid 19 related pneumonia. The patient was hospitalized for shortness of breath and hypoxic respiratory failure. The patient is currently on 5 L and the patient is also on IV Solu Medrol 60 mg every 6 hours. He is also completing a course of Remdesivir day #3. He was noted to have some increased swelling in lower extremity bilaterally and the patient was also given IV Lasix yesterday with good response. She has chronic atrial fibrillation. His INR today is at 3.3. The patient's chest x-ray is showing stable bilateral pulmonary infiltrates, peripheral distribution, and the patient has a pacemaker/AICD over the left anterior chest area. Note that he is diabetic and he also has hypertension and hyperlipidemia and chronic kidney disease with cardiomyopathy and the patient has an AICD in place. Creatinine is. One point for it's improved compared to the earlier levels. 09/15/2020 the patient remains on 5 L. Essentially the same. He is doing some ambulation walk-in. He is a week. He is having some lower extremity edema. He has chronic atrial fibrillation. His INR today is at 3.1 and the patient remains on the standard treatment of steroids versus is receiving IV Solu Medrol 60 mg IV push every 6 hours. He is completing his course of Remdesivir day #5 and this is his last dose. He received a dose of Lasix yesterday and he was able to produce an adequate amount of urine output and in fact the patient is in a negative fluid balance for now. He is known to have pacemaker/AICD along with cardiomyopathy. A he also has hypertension, hyperlipidemia and chronic kidney disease. Creatinine at 1.4, Objective - Vital Signs Vital signs: Vital Signs Temp 97.5 F L 08/29/20 10:00 Pulse 54 L 08/29/20 10:00 Resp 16 08/29/20 10:00 BP 118/80 08/29/20 10:00 Pulse Ox 93 L 08/29/20 10:00 Intake & Output 08/28/20 08/29/20 08/29/20 18:59 06:59 18:59 Output Total 1400 Balance -1400 Output: Urine 1400 Other: # Voids 6 - Exam GENERAL EXAM: Alert, pleasant, 80-year-old white male, 5 L of oxygen pulse ox of 93% comfortable in no apparent distress. HEAD: Normocephalic/atraumatic. EYES: Normal reaction of pupils, equal size. Conjunctiva pink, sclera white. NOSE: Clear with pink turbinates. THROAT: No erythema or exudates. NECK: No masses, no JVD, no thyroid enlargement, no adenopathy. CHEST: No chest wall deformity. Symmetrical expansion. LUNGS: Equal air entry with diffuse crackles CVS: Regular rate and rhythm, normal S1 and S2, no gallops, no murmurs, no rubs ABDOMEN: Soft, nontender. No hepatosplenomegaly, normal bowel sounds, no guarding or rigidity. EXTREMITIES: No clubbing, no edema, no cyanosis, 2+ pulses and upper and lower extremities. MUSCULOSKELETAL: Muscle strength and tone normal. SPINE: No scoliosis or deformity SKIN: No rashes CENTRAL NERVOUS SYSTEM: Alert and oriented -3. No focal deficits, tone is normal in all 4 extremities. PSYCHIATRIC: Alert and oriented -3. Appropriate affect. Intact judgment and insight. - Labs CBC & Chem 7: 08/29/20 05:21 08/28/20 05:29 Labs: Abnormal Lab Results - Last 24 Hours (Table) 08/28/20 08/28/20 08/29/20 Range/Units 16:48 21:10 05:21 WBC (3.8-10.6) k/uL Neutrophils # (1.3-7.7) k/uL Lymphocytes # (1.0-4.8) k/uL PT 30.0 H (9.0-12.0) sec INR 3.1 H (<1.2) POC Glucose (mg/dL) 482 H 356 H (75-99) mg/dL 08/29/20 08/29/20 08/29/20 Range/Units 05:21 07:03 11:57 WBC 12.5 H (3.8-10.6) k/uL Neutrophils # 11.1 H (1.3-7.7) k/uL Lymphocytes # 0.3 L (1.0-4.8) k/uL PT (9.0-12.0) sec INR (<1.2) POC Glucose (mg/dL) 272 H 266 H (75-99) mg/dL Assessment and Plan Plan: #1. Acute hypoxic respiratory failure related to Covid 19 pneumonia, with onset of symptoms within 4-5 days presentation to the hospital, patient is given a dose of BAM/MERVIN on 08/24/2020, however progressed to acute hypoxic respiratory failure, and he is currently on 5 L of oxygen by nasal cannula, he is on IV Solu-Medrol and he is also on Remdesivir day #5. He is weak. He is fatigued. He is currently on 5 L of oxygen by nasal cannula. He does not have home oxygen. He is working with physical therapy. #2. Inflammatory markers and d-dimer due to the above #3. History of chronic A. fib with history of permanent pacemaker, on Coumadin, and INR is 3.1 #4. Hypertension #5. Hyperlipidemia #6. Ischemic cardiomyopathy status post Bi-V AICD placement #7. Diabetes mellitus type 2 #8. Osteoarthritis #9. Depression #10. COPD #11, acute on chronic kidney failure, improving Plan: Consider discharging this patient home with home care. Arrange home oxygen for about 5 L concentrate of Provide him an incentive spirometer Put him on Decadron 6 mg by mouth daily and stopped IV Solu-Medrol He has completed his first day of Remdesivir chest x-rays showing stable bilateral pulmonary infiltrates along with some chronic elevation of the right hemidiaphragm. The patient also has postsurgical changes and a pacer/ICD over the anterior chest area. we'll continue to follow
[2020-08-29 12:51] LABS: ALT 50 U/L (4-49); AST 36 U/L (17-59); African American GFR (CKD) 49 (>60 ml/min/1.73 sqM); Albumin 3.2 g/dL (3.5-5.0); Albumin/Globulin Ratio 1.1; Alkaline Phosphatase 61 U/L (38-126); Anion Gap 8 mmol/L; Blood Urea Nitrogen 60 mg/dL (9-20); Calcium 8.1 mg/dL (8.4-10.2); Carbon Dioxide 26 mmol/L (22-30); Chloride 105 mmol/L (98-107); Globulin 2.8 g/dL; Glucose 261 mg/dL (74-99); Non-African American GFR(CKD) 43 (>60 ml/min/1.73 sqM); Potassium 4.7 mmol/L (3.5-5.1); Sodium 139 mmol/L (137-145); Total Bilirubin 0.6 mg/dL (0.2-1.3)
--- NOTE | 2020-08-29 13:27 | P.PN ---
Subjective Progress Note Date: 08/29/20 Feels okay, 5 L of oxygen. No chest pain or abdominal pain, no nausea or vomiting. No chest pain no abdominal pain No hematuria dysuria hematemesis or hematochezia Objective - Vital Signs Vital signs: Vital Signs Temp 97.5 F L 08/29/20 10:00 Pulse 54 L 08/29/20 10:00 Resp 16 08/29/20 10:00 BP 118/80 08/29/20 10:00 Pulse Ox 93 L 08/29/20 10:00 Intake & Output 08/28/20 08/29/20 08/29/20 18:59 06:59 18:59 Output Total 1400 Balance -1400 Output: Urine 1400 Other: # Voids 6 - Exam Gen: awake, alert HEENT: normocephalic, atraumatic Resp: decreased Breath sounds, no wheezing CVS: good distal perfusion x 4, AICD present in left upper chest GI: soft, NTTP, ND : no SPT, no CVAT, pyle catheter not present MSK: no cce Neuro: non-focal, moving all extremities Psych: cooperative Extremities: No clubbing cyanosis, 1+ bilateral edema - Labs CBC & Chem 7: 08/29/20 05:21 08/29/20 05:21 Labs: Abnormal Lab Results - Last 24 Hours (Table) 08/28/20 08/28/20 08/29/20 Range/Units 16:48 21:10 05:21 WBC (3.8-10.6) k/uL Neutrophils # (1.3-7.7) k/uL Lymphocytes # (1.0-4.8) k/uL PT 30.0 H (9.0-12.0) sec INR 3.1 H (<1.2) BUN (9-20) mg/dL Creatinine (0.66-1.25) mg/dL Glucose (74-99) mg/dL POC Glucose (mg/dL) 482 H 356 H (75-99) mg/dL Calcium (8.4-10.2) mg/dL ALT (4-49) U/L Total Protein (6.3-8.2) g/dL Albumin (3.5-5.0) g/dL 08/29/20 08/29/20 08/29/20 Range/Units 05:21 05:21 07:03 WBC 12.5 H (3.8-10.6) k/uL Neutrophils # 11.1 H (1.3-7.7) k/uL Lymphocytes # 0.3 L (1.0-4.8) k/uL PT (9.0-12.0) sec INR (<1.2) BUN 60 H (9-20) mg/dL Creatinine 1.51 H (0.66-1.25) mg/dL Glucose 261 H (74-99) mg/dL POC Glucose (mg/dL) 272 H (75-99) mg/dL Calcium 8.1 L (8.4-10.2) mg/dL ALT 50 H (4-49) U/L Total Protein 6.0 L (6.3-8.2) g/dL Albumin 3.2 L (3.5-5.0) g/dL 08/29/20 Range/Units 11:57 WBC (3.8-10.6) k/uL Neutrophils # (1.3-7.7) k/uL Lymphocytes # (1.0-4.8) k/uL PT (9.0-12.0) sec INR (<1.2) BUN (9-20) mg/dL Creatinine (0.66-1.25) mg/dL Glucose (74-99) mg/dL POC Glucose (mg/dL) 266 H (75-99) mg/dL Calcium (8.4-10.2) mg/dL ALT (4-49) U/L Total Protein (6.3-8.2) g/dL Albumin (3.5-5.0) g/dL Assessment and Plan Plan: COVID pneumonitis with acute hypoxic respiratory failure and concomitant COPD exacerbation -Continue with Solu-medrol -Duonebs -Supplemental oxygen -Pulmonary consult, input appreciated -Vit C, Vit D, Melatonin, Zinc On 5 L oxygen Completing on the severe today ROSELYN on CKD -C/w IVFs -Monitor BMP Serum creatinine down to 1.5 Chronic conditions: Type II DM, COPD, hyperlipidemia, gout, A. fib -Continue with home medications -Lispro insulin sliding scale and blood glucose monitoring weakness: Consult PT/OT DVT prophylaxis -Coumadin INR 3.1 CODE STATUS: Full Code Discussed with: Patient Anticipated discharge date: Home likely tomorrow Anticipated discharge place: home
[2020-08-29 17:00] LABS: Glucose,Whole Blood 350 mg/dL (75-99)
[2020-08-29] MEDS ORDERED: WARFARIN 2.5 MG TAB PO ONE (18:00)
[2020-08-29] MEDS: REMDESIVIR 100 MG in SODIUM CHLORIDE 0.9% 250 ML IVPB SCH (19:25)
[2020-08-29 20:13] LABS: Glucose,Whole Blood 354 mg/dL (75-99)
[2020-08-29] MEDS: ATORVASTATIN 20 MG TAB PO SCH (20:42)
[2020-08-29] MEDS: INSULIN DETEMIR (LEVEMIR) 100 UNIT/ML SYR SQ SCH (20:42)
[2020-08-29] MEDS: MELATONIN 5 MG TABLET PO PRN (20:42)
[2020-08-29] MEDS: SODIUM CHLORIDE 0.9% 1,000 ML IV SCH (20:43)
[2020-08-30] MEDS: guaiFENesin SYRUP 100MG/5ML 200 MG/10 ML CUP PO PRN ×2 (03:19→20:43)
[2020-08-30 07:11] LABS: Glucose,Whole Blood 333 mg/dL (75-99)
[2020-08-30 07:52] LABS: INR 2.9 (<1.2)
[2020-08-30] MEDS: CHOLECALCIFEROL 25 MCG (1000 IU) TABLET PO SCH (07:54)
[2020-08-30] MEDS: ASCORBIC ACID 500 MG TAB PO SCH (07:54)
[2020-08-30] MEDS: allopurinoL 100 MG TAB PO SCH (07:55)
[2020-08-30] MEDS: carvediloL 6.25 MG TAB PO SCH ×2 (07:55→20:43)
[2020-08-30] MEDS: CLOPIDOGREL 75 MG TAB PO SCH (07:55)
[2020-08-30] MEDS: SPIRONOLACTONE 25 MG TAB PO SCH ×2 (07:55→20:43)
[2020-08-30] MEDS: ESCITALOPRAM 10 MG TAB PO SCH (07:55)
[2020-08-30] MEDS: dexAMETHasone 2 MG TAB PO SCH (07:55)
[2020-08-30] MEDS: INSULIN ASPART (NovoLOG) 100 UNIT/ML VIAL SQ SCH ×4 (07:56→20:42)
[2020-08-30] MEDS: ALBUTEROL HFA INHALER INHALATION SCH ×4 (08:31→22:22)
[2020-08-30] MEDS: SYMBICORT 160-4.5 MCG INHALER INHALATION SCH ×2 (08:31→22:22)
[2020-08-30] MEDS: TIOTROPIUM 2.5 MCG INHALER INHALATION SCH (08:31)
--- NOTE | 2020-08-30 09:26 | P.PN ---
Subjective Progress Note Date: 08/30/20 Feels okay, on 6 L from 5 L of oxygen. No chest pain or abdominal pain, no nausea or vomiting. No chest pain no abdominal pain No hematuria dysuria hematemesis or hematochezia in bed not in distress Objective - Vital Signs Vital signs: Vital Signs Temp 97.8 F 08/30/20 05:07 Pulse 52 L 08/30/20 05:07 Resp 18 08/30/20 05:07 BP 138/74 08/30/20 05:07 Pulse Ox 90 L 08/30/20 08:31 Intake & Output 08/29/20 08/30/20 08/30/20 18:59 06:59 18:59 Intake Total 480 490 Balance 480 490 Intake: Intake, IV Titration 490 Amount Remdesivir 100 mg In 250 Sodium Chloride 0.9% 250 ml @ 250 mls/hr IVPB DAILY@1900 DESIRAE Rx#: [id number] Sodium Chloride 0.9% 1, 240 000 ml @ 20 mls/hr IV . Q24H DESIRAE Rx#:[id number] Oral 480 Other: Voiding Method Toilet Urinal Diaper Incontinent # Voids 1 - Exam Gen: awake, alert HEENT: normocephalic, atraumatic Resp: decreased Breath sounds, no wheezing CVS: good distal perfusion x 4, AICD present in left upper chest GI: soft, NTND + BS Neuro: non-focal, moving all extremities Psych: cooperative Extremities: No clubbing cyanosis, 1+ bilateral edema - Labs CBC & Chem 7: 08/29/20 05:21 08/29/20 05:21 Labs: Abnormal Lab Results - Last 24 Hours (Table) 08/29/20 08/29/20 08/29/20 Range/Units 05:21 11:57 16:58 PT (9.0-12.0) sec INR (<1.2) BUN 60 H (9-20) mg/dL Creatinine 1.51 H (0.66-1.25) mg/dL Glucose 261 H (74-99) mg/dL POC Glucose (mg/dL) 266 H 350 H (75-99) mg/dL Calcium 8.1 L (8.4-10.2) mg/dL ALT 50 H (4-49) U/L Total Protein 6.0 L (6.3-8.2) g/dL Albumin 3.2 L (3.5-5.0) g/dL 08/29/20 08/30/20 08/30/20 Range/Units 20:11 06:55 07:10 PT 28.0 H (9.0-12.0) sec INR 2.9 H (<1.2) BUN (9-20) mg/dL Creatinine (0.66-1.25) mg/dL Glucose (74-99) mg/dL POC Glucose (mg/dL) 354 H 333 H (75-99) mg/dL Calcium (8.4-10.2) mg/dL ALT (4-49) U/L Total Protein (6.3-8.2) g/dL Albumin (3.5-5.0) g/dL Assessment and Plan Plan: COVID pneumonitis with acute hypoxic respiratory failure and concomitant COPD exacerbation -Continue with Solu-medrol -Duonebs -Supplemental oxygen -Pulmonary consult, input appreciated -Vit C, Vit D, Melatonin, Zinc On 5 L oxygen, increased to 6 L today. Completing on the severe today ROSELYN on CKD -C/w IVFs -Monitor BMP Serum creatinine down to 1.5 Chronic conditions: Type II DM, COPD, hyperlipidemia, gout, A. fib -Continue with home medications -Lispro insulin sliding scale and blood glucose monitoring weakness: Consult PT/OT DVT prophylaxis -Coumadin INR 2.9 CODE STATUS: Full Code Discussed with: Patient Anticipated discharge date: Home likely tomorrow if requiring less oxygen Anticipated discharge place: home
[2020-08-30 11:32] LABS: Glucose,Whole Blood 278 mg/dL (75-99)
[2020-08-30 11:59] LABS: Basophils # (A) 0.04 X 10*3/uL (0.00-0.10); Basophils % (A) 0.3 %; Eosinophils # (A) 0 X 10*3/uL (0.04-0.35); Eosinophils % (A) 0 %; HCT 50.9 % (39.6-50.0); HGB 16.2 g/dL (13.0-17.0); Lymphocytes # (A) 0.54 X 10*3/uL (0.90-5.00); MCH 31.2 pg (27.0-32.0); MCHC 31.8 g/dL (32.0-37.0); MCV 97.9 fL (80.0-97.0); Mean Platelet Volume 9.8 fL (9.5-12.2); Monocytes # (A) 0.93 X 10*3/uL (0.20-1.00); Monocytes % (A) 6.8 %; Neutrophils # (A) 11.93 X 10*3/uL (1.80-7.70); Neutrophils % (A) 87.3 %; Platelet Count 251 X 10*3/uL (140-440); RDW 13.9 % (11.5-14.5); WBC 13.66 X 10*3/uL (4.50-10.00)
[2020-08-30 12:32] LABS: African American GFR (CKD) 45.8 (60.0-200.0); Albumin 3.9 g/dL (3.80-4.90); Albumin/Globulin Ratio 1.86 (1.60-3.17); Anion Gap 10.2 mmol/L (4.00-12.00); Calcium 8.4 mg/dL (8.7-10.3); Carbon Dioxide 25.8 mmol/L (21.6-31.8); Globulin 2.1 g/dL (1.6-3.3); Non-African American GFR(CKD) 39.5 (60.0-200.0); Total Bilirubin 0.7 mg/dL (0.2-1.2)
--- NOTE | 2020-08-30 15:01 | CDI ---
Documentation Clarification Form Date: 08/30/2020 02:52:46 PM From: Aida Senior CCS, CCDS Admit Date: 08/24/2020 09:40:00 PM Patient Name: Rashid Baldwin Visit Number: [id number] Discharge Date: ATTENTION: The Clinical Documentation Specialists (CDI) and [facility] Coding Staff appreciate your assistance in clarifying documentation. Please respond to the clarification below the line at the bottom and electronically sign. The CDI & [facility] Coding staff will review the response and follow-up if needed. Please note: Queries are made part of the Legal Health Record. If you have any questions, please contact the author of this message via ITS. Dr. Regan Ward: Unspecified CKD is documented in the 08/24 H/P and in subsequent Progress Notes without further specificity. Additional clarification regarding the stage of CKD is requested. Nephrology is not consulted. History/Risk Factors per the 08/24 H/P: DM II, COPD, Hyperlipidemia, CAD, Gout, Atrial Fibrillation, CKD, AICD & CABG. Patients Historical GFR: 09/30/2019: 51 Current GFR: 08/24: 30. /: 28.5. 08/28: 44. /: 43. /: 39.5 Current BUN/Cr: 08/24: 42, 2.03. 08/25: 50.0, 2.1. 08/28: 57, 1.47. Clinical Indicators: Presented to the ED on 08/24 with SOB & COVID 19 symptoms, Cough, Dyspnea, Diarrhea & Fever. ED Clinical Impression: Acute Exacerbation of COPD, COVID 19 Pneumonia Treatment 08/24: INH Ventolin, IV Solumedrol, IV fluid 50 mls @ 300 mls/hr x1 Please clarify the stage of the CKD, if known: [ ] CKD Stage 3 (GFR 30-59) [ ] CKD Stage 3a (GFR 45-59) [ ] CKD Stage 3b (GFR 30-44) [ ] Other, please specify [ ] Unable to determine (Template Last revised: June 2020) CKD 3 b MTDD
[2020-08-30 15:02] VITALS: BMI 33.7
[2020-08-30 16:31] LABS: Glucose,Whole Blood 309 mg/dL (75-99)
--- NOTE | 2020-08-30 16:58 | P.PN ---
Subjective Progress Note Date: 08/30/20 Principal diagnosis: Covid 19 pneumonia 80-year-old white male patient with past medical history of COPD, coronary artery disease, diabetes mellitus type 2, hypertension, hyperlipidemia, osteoarthritis, chronic kidney disease, cardiomyopathy with AICD placement came into the emergency department on a 2020 for evaluation of worsening cough and dyspnea. Patient was sent in by primary care physician for possible monoclonal antibody infusion. Patient has been having diarrhea, fever and fatigue, his symptom onset was approximately 4-5 days prior to presentation. In the emerg ency department he was given an infusion of BAM/MERVIN. Subsequently he developed hypoxemia, placed on supplemental oxygen, chest x-ray shows moderate bibasilar opacities concerning for infiltrates, EKG shows paced rhythm. Admission labs show lymphopenia with lymphocyte count of 0.8, increased CBC was unremarkable, d-dimer is 2.18, sodium is 134 and the rest of the electrolytes were unremarkable, BUN 42, creatinine is 2.03, ferritin level is 744, LDH is 846, CRP is 147.9, pro calcitonin level is 0.21. Patient was started IV Solu-Medrol, patient is on Coumadin with INR of 2.24. No acute distress, diarrhea is improving. Patient was reevaluated today on 08/26/2020, feels better, he is on 5 L nasal cannula, and his O2 sats is 90%. Patient does have shortness of breath with activity. Intermittent cough, no wheezing. His INR today is 3.7, d-dimer 2.18 on admission. BUN is 50 creatinine 2.1. LDH 846 C-reactive protein 148. On 08/27/2020 patient seen in follow-up medical floor, he is on 3 L of oxygen his pulse ox is 86%, and his FiO2 was diabetic up to 5 L and he is satting about 90%, he is on Remdesivir D to treatment, he is up in the chair, feeling weak but overall reports no worsening dyspnea. Mild edema in his lower extremities, we'll give the patient a dose of IV Lasix 40 mg, he continues on Solu-Medrol 60 mg every 6 hours, vitamins, he is on Symbicort, is on Coumadin for history of A. fib. His INR is 4.8 today. Chest pain, no hemoptysis, recent chest x-ray. No nausea vomiting or diarrhea. On 08/28/2020 patient is seen in follow-up on medical floor, he is currently on 10 L of oxygen his pulse ox is 92%, he is afebrile, hemodynamically stable, he is FiO2 requirement has increased , he looks a little bit more fatigued and weak, and he states he feels little depressed today, no chest pain, no nausea or vomiting. Appears to be in no distress. He is sitting up in the recliner, seems to be breathing comfortably, he continues on Decadron, polyvitamins, he remains on Coumadin, his INR today is 2.9, white blood cell count is 13.6, hemoglobin is 16.2, electrolytes were unremarkable, B1 is 64, creatinine is 1.6. Tolerating oral intake. Objective - Vital Signs Vital signs: Vital Signs Temp 97.8 F 08/30/20 14:00 Pulse 59 L 08/30/20 14:00 Resp 26 H 08/30/20 14:00 BP 139/81 08/30/20 14:00 Pulse Ox 92 L 08/30/20 14:00 Intake & Output 08/29/20 08/30/20 08/30/20 18:59 06:59 18:59 Intake Total 480 490 Balance 480 490 Weight 116.12 kg Intake: Intake, IV Titration 490 Amount Remdesivir 100 mg In 250 Sodium Chloride 0.9% 250 ml @ 250 mls/hr IVPB DAILY@1900 DESIRAE Rx#: [id number] Sodium Chloride 0.9% 1, 240 000 ml @ 20 mls/hr IV . Q24H DESIRAE Rx#:[id number] Oral 480 Other: Voiding Method Toilet Urinal Diaper Incontinent # Voids 1 - Exam GENERAL EXAM: Alert, pleasant, 80-year-old white male, 10 L of oxygen pulse ox of 92 % comfortable in no apparent distress. HEAD: Normocephalic/atraumatic. EYES: Normal reaction of pupils, equal size. Conjunctiva pink, sclera white. NOSE: Clear with pink turbinates. THROAT: No erythema or exudates. NECK: No masses, no JVD, no thyroid enlargement, no adenopathy. CHEST: No chest wall deformity. Symmetrical expansion. LUNGS: Equal air entry with diffuse crackles CVS: Regular rate and rhythm, normal S1 and S2, no gallops, no murmurs, no rubs ABDOMEN: Soft, nontender. No hepatosplenomegaly, normal bowel sounds, no guarding or rigidity. EXTREMITIES: No clubbing, no edema, no cyanosis, 2+ pulses and upper and lower extremities. MUSCULOSKELETAL: Muscle strength and tone normal. SPINE: No scoliosis or deformity SKIN: No rashes CENTRAL NERVOUS SYSTEM: Alert and oriented -3. No focal deficits, tone is normal in all 4 extremities. PSYCHIATRIC: Alert and oriented -3. Appropriate affect. Intact judgment and insight. - Labs CBC & Chem 7: 08/30/20 06:55 08/30/20 06:55 Labs: Abnormal Lab Results - Last 24 Hours (Table) 08/29/20 08/29/20 08/30/20 Range/Units 16:58 20:11 06:55 WBC (4.50-10.00) X 10*3/uL Hct (39.6-50.0) % MCV (80.0-97.0) fL MCHC (32.0-37.0) g/dL Immature Gran # (0.00-0.04) X 10*3/uL Neutrophils # (1.80-7.70) X 10*3/uL Lymphocytes # (0.90-5.00) X 10*3/uL Eosinophils # (0.04-0.35) X 10*3/uL PT 28.0 H (9.0-12.0) sec INR 2.9 H (<1.2) BUN (9.0-27.0) mg/dL Creatinine (0.6-1.5) mg/dL Est GFR (CKD-EPI)AfAm (60.0-200.0) Est GFR (CKD-EPI)NonAf (60.0-200.0) BUN/Creatinine Ratio (12.00-20.00) Ratio Glucose (70-110) mg/dL POC Glucose (mg/dL) 350 H 354 H (75-99) mg/dL Calcium (8.7-10.3) mg/dL ALT (10-49) U/L Total Protein (6.2-8.2) g/dL 08/30/20 08/30/20 08/30/20 Range/Units 06:55 06:55 07:10 WBC 13.66 H (4.50-10.00) X 10*3/uL Hct 50.9 H (39.6-50.0) % MCV 97.9 H (80.0-97.0) fL MCHC 31.8 L (32.0-37.0) g/dL Immature Gran # 0.22 H (0.00-0.04) X 10*3/uL Neutrophils # 11.93 H (1.80-7.70) X 10*3/uL Lymphocytes # 0.54 L (0.90-5.00) X 10*3/uL Eosinophils # 0 L (0.04-0.35) X 10*3/uL PT (9.0-12.0) sec INR (<1.2) BUN 64.0 H (9.0-27.0) mg/dL Creatinine 1.6 H (0.6-1.5) mg/dL Est GFR (CKD-EPI)AfAm 45.8 L (60.0-200.0) Est GFR (CKD-EPI)NonAf 39.5 L (60.0-200.0) BUN/Creatinine Ratio 40.00 H (12.00-20.00) Ratio Glucose 256 H (70-110) mg/dL POC Glucose (mg/dL) 333 H (75-99) mg/dL Calcium 8.4 L (8.7-10.3) mg/dL ALT 59 H (10-49) U/L Total Protein 6.0 L (6.2-8.2) g/dL 08/30/20 Range/Units 11:31 WBC (4.50-10.00) X 10*3/uL Hct (39.6-50.0) % MCV (80.0-97.0) fL MCHC (32.0-37.0) g/dL Immature Gran # (0.00-0.04) X 10*3/uL Neutrophils # (1.80-7.70) X 10*3/uL Lymphocytes # (0.90-5.00) X 10*3/uL Eosinophils # (0.04-0.35) X 10*3/uL PT (9.0-12.0) sec INR (<1.2) BUN (9.0-27.0) mg/dL Creatinine (0.6-1.5) mg/dL Est GFR (CKD-EPI)AfAm (60.0-200.0) Est GFR (CKD-EPI)NonAf (60.0-200.0) BUN/Creatinine Ratio (12.00-20.00) Ratio Glucose (70-110) mg/dL POC Glucose (mg/dL) 278 H (75-99) mg/dL Calcium (8.7-10.3) mg/dL ALT (10-49) U/L Total Protein (6.2-8.2) g/dL Assessment and Plan Plan: Assessment: #1. Acute hypoxic respiratory failure related to Covid 19 pneumonia, with onset of symptoms within 4-5 days presentation to the hospital, patient is given a dose of BAM/MERVIN on 08/24/2020, however progressed to acute hypoxic respiratory failure, and completed Remdesivir #2. Inflammatory markers and d-dimer due to the above #3. History of chronic A. fib with history of permanent pacemaker, on Coumadin, and INR is 2. #4. Hypertension #5. Hyperlipidemia #6. Ischemic cardiomyopathy status post Bi-V AICD placement #7. Diabetes mellitus type 2 #8. Osteoarthritis #9. Depression #10. COPD Plan: Continue current medical treatment, FiO2 requirements have increased, but clinically patient states no worsening dyspnea we'll obtain follow-up chest x- ray inflammatory markers, and BMP tomorrow. Continue current dose Decadron, oral anticoagulation. Hold Lasix I performed a history & physical examination of the patient and discussed their management with my nurse practitioner, Amira Cabrera. I reviewed the nurse practitioner's note and agree with the documented findings and plan of care. Lung sounds are positive for bibasilar crackles. The findings and the impression was discussed with the patient. I attest to the documentation by the nurse practitioner. Time with Patient: Less than 30
[2020-08-30] MEDS ORDERED: WARFARIN 5 MG TAB PO ONE (18:00)
[2020-08-30 20:21] LABS: Glucose,Whole Blood 462 mg/dL (75-99)
[2020-08-30] MEDS: INSULIN DETEMIR (LEVEMIR) 100 UNIT/ML SYR SQ SCH (20:42)
[2020-08-30] MEDS: ATORVASTATIN 20 MG TAB PO SCH (20:43)
[2020-08-30 22:07] LABS: Glucose,Whole Blood 339 mg/dL (75-99)
[2020-08-30] MEDS: SODIUM CHLORIDE 0.9% 1,000 ML IV SCH (23:04)
[2020-08-31 07:04] LABS: Glucose,Whole Blood 222 mg/dL (75-99)
[2020-08-31] MEDS: CHOLECALCIFEROL 25 MCG (1000 IU) TABLET PO SCH (07:42)
[2020-08-31] MEDS: ASCORBIC ACID 500 MG TAB PO SCH (07:43)
[2020-08-31] MEDS: dexAMETHasone 2 MG TAB PO SCH (07:43)
[2020-08-31] MEDS: carvediloL 6.25 MG TAB PO SCH ×2 (07:43→21:56)
[2020-08-31] MEDS: allopurinoL 100 MG TAB PO SCH (07:43)
[2020-08-31] MEDS: SPIRONOLACTONE 25 MG TAB PO SCH ×2 (07:44→21:56)
[2020-08-31] MEDS: ESCITALOPRAM 10 MG TAB PO SCH (07:44)
[2020-08-31] MEDS: INSULIN ASPART (NovoLOG) 100 UNIT/ML VIAL SQ SCH ×4 (07:44→21:55)
[2020-08-31] MEDS: CLOPIDOGREL 75 MG TAB PO SCH (07:44)
[2020-08-31] MEDS: SYMBICORT 160-4.5 MCG INHALER INHALATION SCH ×2 (07:52→22:21)
[2020-08-31] MEDS: ALBUTEROL HFA INHALER INHALATION SCH ×4 (07:52→22:21)
[2020-08-31] MEDS: TIOTROPIUM 2.5 MCG INHALER INHALATION SCH (07:52)
--- NOTE | 2020-08-31 08:30 | XR ---
EXAMINATION TYPE: XR chest 1V portable DATE OF EXAM: 08/31/2020 COMPARISON: Chest x-ray 01/28/2021 HISTORY: Covid, shortness of breath TECHNIQUE: Single frontal view of the chest is obtained. FINDINGS: Chest wall defect, post median sternotomy change, intracardiac defibrillator lead in left pectoral generator are all again noted. There is patchy bilateral airspace disease within the lungs. No evident pneumothorax. Right hemidiaphragm remains elevated. Cardiac mediastinal silhouette is janina lar. No sizable effusion evident. IMPRESSION: Findings similar to prior exam, correlate for pneumonia.
[2020-08-31 09:09] LABS: INR 3.4 (<1.2); Prothrombin Time 32.9 sec (9.0-12.0)
[2020-08-31 11:42] LABS: Glucose,Whole Blood 224 mg/dL (75-99)
[2020-08-31 13:15] LABS: African American GFR (CKD) 49.5 (60.0-200.0); Anion Gap 8.6 mmol/L (4.00-12.00); C Reactive Protein 1.3 mg/dL (0.0-0.8); Calcium 8.9 mg/dL (8.7-10.3); Carbon Dioxide 26.4 mmol/L (21.6-31.8); Non-African American GFR(CKD) 42.7 (60.0-200.0); Potassium 5.1 mmol/L (3.5-5.5)
--- NOTE | 2020-08-31 13:16 | P.PN ---
Subjective Progress Note Date: 08/31/20 Feels okay, on 10 L of oxygen. No chest pain or abdominal pain, no nausea or vomiting. No chest pain no abdominal pain No hematuria dysuria hematemesis or hematochezia up in chair not in distress Objective - Vital Signs Vital signs: Vital Signs Temp 98.7 F 08/31/20 10:00 Pulse 52 L 08/31/20 12:23 Resp 20 08/31/20 10:00 BP 133/83 08/31/20 10:00 Pulse Ox 89 L 08/31/20 12:23 Intake & Output 08/30/20 08/31/20 08/31/20 18:59 06:59 18:59 Intake Total 200 Output Total 350 Balance -350 200 Weight 116.12 kg Intake: Oral 200 Output: Urine 350 Other: Voiding Method Toilet Toilet Urinal Urinal Diaper Diaper Incontinent Incontinent # Voids 1 1 - Exam Gen: awake, alert HEENT: normocephalic, atraumatic Resp: decreased Breath sounds, no wheezing CVS: good distal perfusion x 4, AICD present in left upper chest GI: soft, NTND + BS Neuro: non-focal, moving all extremities, CN 2-12 intact Psych: cooperative Extremities: No clubbing cyanosis, 1-2+ bilateral edema - Labs CBC & Chem 7: 08/30/20 06:55 08/30/20 06:55 Labs: Abnormal Lab Results - Last 24 Hours (Table) 08/30/20 08/30/20 08/30/20 Range/Units 16:30 20:19 22:05 PT (9.0-12.0) sec INR (<1.2) POC Glucose (mg/dL) 309 H 462 H 339 H (75-99) mg/dL 08/31/20 08/31/20 08/31/20 Range/Units 07:01 07:44 11:40 PT 32.9 H (9.0-12.0) sec INR 3.4 H (<1.2) POC Glucose (mg/dL) 222 H 224 H (75-99) mg/dL Assessment and Plan Plan: COVID pneumonitis with acute hypoxic respiratory failure and concomitant COPD exacerbation -Continue with Solu-medrol -Duonebs -Vit C, Vit D, Melatonin, Zinc On 10 L oxygen Pulmonology following, appreciate input ROSELYN on CKD 3B -C/w IVFs -Monitor BMP Serum creatinine down to 1.5 Chronic conditions: Type II DM, COPD, hyperlipidemia, gout, A. fib -Continue with home medications -Lispro insulin sliding scale and blood glucose monitoring weakness: Consult PT/OT Hypervolemia, multifactorial Start IV Lasix Obtain 2-D echo DVT prophylaxis -Coumadin INR 2.9 CODE STATUS: Full Code Discussed with: Patient Anticipated discharge date: 2-[address]: home versus rehab
--- NOTE | 2020-08-31 14:16 | P.PN ---
Subjective Progress Note Date: 08/31/20 Principal diagnosis: Covid 19 pneumonia 80-year-old white male patient with past medical history of COPD, coronary artery disease, diabetes mellitus type 2, hypertension, hyperlipidemia, osteoarthritis, chronic kidney disease, cardiomyopathy with AICD placement came into the emergency department on a 2020 for evaluation of worsening cough and dyspnea. Patient was sent in by primary care physician for possible monoclonal antibody infusion. Patient has been having diarrhea, fever and fatigue, his symptom onset was approximately 4-5 days prior to presentation. In the emerg ency department he was given an infusion of BAM/MERVIN. Subsequently he developed hypoxemia, placed on supplemental oxygen, chest x-ray shows moderate bibasilar opacities concerning for infiltrates, EKG shows paced rhythm. Admission labs show lymphopenia with lymphocyte count of 0.8, increased CBC was unremarkable, d-dimer is 2.18, sodium is 134 and the rest of the electrolytes were unremarkable, BUN 42, creatinine is 2.03, ferritin level is 744, LDH is 846, CRP is 147.9, pro calcitonin level is 0.21. Patient was started IV Solu-Medrol, patient is on Coumadin with INR of 2.24. No acute distress, diarrhea is improving. Patient was reevaluated today on 08/26/2020, feels better, he is on 5 L nasal cannula, and his O2 sats is 90%. Patient does have shortness of breath with activity. Intermittent cough, no wheezing. His INR today is 3.7, d-dimer 2.18 on admission. BUN is 50 creatinine 2.1. LDH 846 C-reactive protein 148. On 08/27/2020 patient seen in follow-up medical floor, he is on 3 L of oxygen his pulse ox is 86%, and his FiO2 was diabetic up to 5 L and he is satting about 90%, he is on Remdesivir D to treatment, he is up in the chair, feeling weak but overall reports no worsening dyspnea. Mild edema in his lower extremities, we'll give the patient a dose of IV Lasix 40 mg, he continues on Solu-Medrol 60 mg every 6 hours, vitamins, he is on Symbicort, is on Coumadin for history of A. fib. His INR is 4.8 today. Chest pain, no hemoptysis, recent chest x-ray. No nausea vomiting or diarrhea. On 08/28/2020 patient is seen in follow-up on medical floor, he is currently on 10 L of oxygen his pulse ox is 92%, he is afebrile, hemodynamically stable, he is FiO2 requirement has increased , he looks a little bit more fatigued and weak, and he states he feels little depressed today, no chest pain, no nausea or vomiting. Appears to be in no distress. He is sitting up in the recliner, seems to be breathing comfortably, he continues on Decadron, polyvitamins, he remains on Coumadin, his INR today is 2.9, white blood cell count is 13.6, hemoglobin is 16.2, electrolytes were unremarkable, B1 is 64, creatinine is 1.6. Tolerating oral intake. On 08/31/2020 patient seen in follow-up on the medical floor. he seems very depressed today, is currently on 10 L per high flow nasal cannula, his pulse ox is between 85-89%, does easily desaturate with any exertion, but appears to be in no acute distress, is afebrile, no cough with chest discomfort, history of chest x-ray today shows patchy bilateral airspace disease no pneumothorax, stable findings. Today's labs have been noted, his INR today 3.4, electrolytes are within normal limits, BUN is 60 creatinine is 1.5, LDH is trending down, down to 409, and CRP is down to 1.3. Patient remains on oral Decadron 6 mg d aily, he is on Coumadin which is being dosed by pharmacy, and his Lasix currently is at 40 mg every 12 hours this was started today. Objective - Vital Signs Vital signs: Vital Signs Temp 98.7 F 08/31/20 10:00 Pulse 52 L 08/31/20 12:23 Resp 20 08/31/20 10:00 BP 133/83 08/31/20 10:00 Pulse Ox 89 L 08/31/20 12:23 Intake & Output 08/30/20 08/31/20 08/31/20 18:59 06:59 18:59 Intake Total 200 Output Total 350 Balance -350 200 Weight 116.12 kg Intake: Oral 200 Output: Urine 350 Other: Voiding Method Toilet Toilet Urinal Urinal Diaper Diaper Incontinent Incontinent # Voids 1 1 - Exam GENERAL EXAM: Alert, pleasant, 80-year-old white male, 10 L of oxygen pulse ox of 89 % comfortable in no apparent distress. HEAD: Normocephalic/atraumatic. EYES: Normal reaction of pupils, equal size. Conjunctiva pink, sclera white. NOSE: Clear with pink turbinates. THROAT: No erythema or exudates. NECK: No masses, no JVD, no thyroid enlargement, no adenopathy. CHEST: No chest wall deformity. Symmetrical expansion. LUNGS: Equal air entry with diffuse crackles CVS: Regular rate and rhythm, normal S1 and S2, no gallops, no murmurs, no rubs ABDOMEN: Soft, nontender. No hepatosplenomegaly, normal bowel sounds, no gua rding or rigidity. EXTREMITIES: No clubbing, no edema, no cyanosis, 2+ pulses and upper and lower extremities. MUSCULOSKELETAL: Muscle strength and tone normal. SPINE: No scoliosis or deformity SKIN: No rashes CENTRAL NERVOUS SYSTEM: Alert and oriented -3. No focal deficits, tone is normal in all 4 extremities. PSYCHIATRIC: Alert and oriented -3. Appropriate affect. Intact judgment and insight. - Labs CBC & Chem 7: 08/30/20 06:55 08/31/20 07:44 Labs: Abnormal Lab Results - Last 24 Hours (Table) 08/30/20 08/30/20 08/30/20 Range/Units 16:30 20:19 22:05 PT (9.0-12.0) sec INR (<1.2) BUN (9.0-27.0) mg/dL Est GFR (CKD-EPI)AfAm (60.0-200.0) Est GFR (CKD-EPI)NonAf (60.0-200.0) BUN/Creatinine Ratio (12.00-20.00) Ratio Glucose (70-110) mg/dL POC Glucose (mg/dL) 309 H 462 H 339 H (75-99) mg/dL Lactate Dehydrogenase (120-246) U/L C-Reactive Protein (0.0-0.8) mg/dL 08/31/20 08/31/20 08/31/20 Range/Units 07:01 07:44 07:44 PT 32.9 H (9.0-12.0) sec INR 3.4 H (<1.2) BUN 60.0 H (9.0-27.0) mg/dL Est GFR (CKD-EPI)AfAm 49.5 L (60.0-200.0) Est GFR (CKD-EPI)NonAf 42.7 L (60.0-200.0) BUN/Creatinine Ratio 40.00 H (12.00-20.00) Ratio Glucose 284 H (70-110) mg/dL POC Glucose (mg/dL) 222 H (75-99) mg/dL Lactate Dehydrogenase 409 H (120-246) U/L C-Reactive Protein 1.3 H (0.0-0.8) mg/dL 08/31/20 Range/Units 11:40 PT (9.0-12.0) sec INR (<1.2) BUN (9.0-27.0) mg/dL Est GFR (CKD-EPI)AfAm (60.0-200.0) Est GFR (CKD-EPI)NonAf (60.0-200.0) BUN/Creatinine Ratio (12.00-20.00) Ratio Glucose (70-110) mg/dL POC Glucose (mg/dL) 224 H (75-99) mg/dL Lactate Dehydrogenase (120-246) U/L C-Reactive Protein (0.0-0.8) mg/dL Assessment and Plan Plan: Assessment: #1. Acute hypoxic respiratory failure related to Covid 19 pneumonia, with onset of symptoms within 4-5 days presentation to the hospital, patient is given a dose of BAM/MERVIN on 08/24/2020, however progressed to acute hypoxic respiratory failure, and completed Remdesivir #2. Inflammatory markers and d-dimer due to the above #3. History of chronic A. fib with history of permanent pacemaker, on Coumadin, and INR is 2. #4. Hypertension #5. Hyperlipidemia #6. Ischemic cardiomyopathy status post Bi-V AICD placement #7. Diabetes mellitus type 2 #8. Osteoarthritis #9. Depression #10. COPD Plan: Continue current medical treatment, oral steroids, oral anticoagulation, patient remains on high flow oxygen, today's labs have been noted, chest x-ray has been reviewed. Overall no significant worsening or improvement, and patient seems to be quite depressed, we will add small dose Celexa 10 mg daily. We'll continue to follow, follow a BMP and inflammatory markers tomorrow I performed a history & physical examination of the patient and discussed their management with my nurse practitioner, Amira Cabrera. I reviewed the nurse practitioner's note and agree with the documented findings and plan of care. Lung sounds are positive for bibasilar crackles. The findings and the impres jayant was discussed with the patient. I attest to the documentation by the nurse practitioner. Time with Patient: Less than 30
[2020-08-31] MEDS: FUROSEMIDE 10 MG/ML 4 ML VIAL IV SCH ×2 (14:57→23:11)
[2020-08-31 17:05] LABS: Glucose,Whole Blood 332 mg/dL (75-99)
[2020-08-31] MEDS: CITALOPRAM HYDROBROMIDE 10 MG TAB PO SCH (17:28)
[2020-08-31] MEDS ORDERED: WARFARIN 0.5 MG TAB PO ONE (18:00)
[2020-08-31 20:45] LABS: Glucose,Whole Blood 349 mg/dL (75-99)
[2020-08-31] MEDS: ATORVASTATIN 20 MG TAB PO SCH (21:56)
[2020-08-31] MEDS: guaiFENesin SYRUP 100MG/5ML 200 MG/10 ML CUP PO PRN (21:56)
[2020-08-31] MEDS: INSULIN DETEMIR (LEVEMIR) 100 UNIT/ML SYR SQ SCH (21:56)
[2020-09-01] MEDS: SODIUM CHLORIDE 0.9% 1,000 ML IV SCH ×2 (06:23→17:13)
[2020-09-01 06:53] LABS: Glucose,Whole Blood 198 mg/dL (75-99)
[2020-09-01] MEDS: ALBUTEROL HFA INHALER INHALATION SCH ×4 (07:42→20:21)
[2020-09-01] MEDS: TIOTROPIUM 2.5 MCG INHALER INHALATION SCH (07:42)
[2020-09-01] MEDS: SYMBICORT 160-4.5 MCG INHALER INHALATION SCH ×2 (07:42→20:21)
[2020-09-01 07:59] LABS: INR 3.6 (<1.2); Prothrombin Time 34.7 sec (9.0-12.0)
[2020-09-01] MEDS: CHOLECALCIFEROL 25 MCG (1000 IU) TABLET PO SCH (08:01)
[2020-09-01] MEDS: allopurinoL 100 MG TAB PO SCH (08:02)
[2020-09-01] MEDS: SPIRONOLACTONE 25 MG TAB PO SCH ×2 (08:02→20:49)
[2020-09-01] MEDS: ASCORBIC ACID 500 MG TAB PO SCH (08:02)
[2020-09-01] MEDS: dexAMETHasone 2 MG TAB PO SCH (08:02)
[2020-09-01] MEDS: INSULIN ASPART (NovoLOG) 100 UNIT/ML VIAL SQ SCH ×4 (08:02→20:48)
[2020-09-01] MEDS: carvediloL 6.25 MG TAB PO SCH ×2 (08:02→20:49)
[2020-09-01] MEDS: CLOPIDOGREL 75 MG TAB PO SCH (08:02)
[2020-09-01] MEDS: CITALOPRAM HYDROBROMIDE 10 MG TAB PO SCH (08:03)
[2020-09-01] MEDS: FUROSEMIDE 10 MG/ML 4 ML VIAL IV SCH ×2 (08:03→20:48)
--- NOTE | 2020-09-01 08:31 | ECHOF ---
Referral Reason:Hypervolemia MEASUREMENTS -------- HEIGHT: 185.4 cm WEIGHT: 116.1 kg BP: 133/83 RVIDd: 3.5 cm (< 3.3) IVSd: 1.3 cm (0.6 - 1.1) LVIDd: 4.9 cm (3.9 - 5.3) LVPWd: 1.4 cm (0.6 - 1.1) IVSs: 2.0 cm LVIDs: 4.1 cm LVPWs: 1.6 cm LA Diam: 3.6 cm (2.7 - 3.8) Ao Diam: 3.7 cm (2.0 - 3.7) AV Cusp: 2.2 cm (1.5 - 2.6) MV EXCURSION: 10.694 mm (> 18.000) MV EF SLOPE: 32 mm/s (70 - 150) EPSS: 2.7 cm MV E Jeremiah: 0.52 m/s MV DecT: 414 ms MV A Jeremiah: 0.89 m/s MV E/A Ratio: 0.58 AR PHT: 1369 ms RAP: 15.00 mmHg RVSP: 43.58 mmHg FINDINGS -------- This was a technically difficult study with suboptimal views. The left ventricular size is normal. There is moderate concentric left ventricular hypertrophy. O verall left ventricular systolic function is moderate-severely impaired with, an EF between 30 - 35 % . The right ventricle is mildly enlarged. The left atrium is normal in size. The right atrium was not well visualized. There is mild aortic regurgitation. Mild mitral annular calcification present. Mild mitral regurgitation is present. Mild tricuspid regurgitation present. There is mild pulmonary hypertension. The right ventricular systolic pressure, as measured by Doppler, is 43.58mmHg. The pulmonic valve was not well visualized. The aortic root size is normal. IVC Not well visulized. There is no pericardial effusion. CONCLUSIONS -------- 1. This was a technically difficult study with suboptimal views. 2. The left ventricular size is normal. 3. There is moderate concentric left ventricular hypertrophy. 4. Overall left ventricular systolic function is moderate-severely impaired with, an EF between 30 - 35 %. 5. The right ventricle is mildly enlarged. 6. There is mild aortic regurgitation. 7. Mild mitral annular calcification present. 8. Mild mitral regurgitation is present. 9. Mild tricuspid regurgitation present. 10. There is mild pulmonary hypertension. 11. The right ventricular systolic pressure, as measured by Doppler, is 43.58mmHg. 12. There is no pericardial effusion. SECURITY SPECIALIST: Gisselle Pereira RDCS
--- NOTE | 2020-09-01 08:56 | P.PN ---
Subjective Progress Note Date: 09/01/20 Feels okay, on 10 L of oxygen. No chest pain or abdominal pain, no nausea or vomiting. No chest pain no abdominal pain No hematuria dysuria hematemesis or hematochezia up in chair not in distress In depressed mood. Objective - Vital Signs Vital signs: Vital Signs Temp 97.5 F L 09/01/20 05:30 Pulse 57 L 09/01/20 05:30 Resp 17 09/01/20 05:30 BP 126/80 09/01/20 05:30 Pulse Ox 90 L 09/01/20 05:30 Intake & Output 08/31/20 09/01/20 09/01/20 18:59 06:59 18:59 Intake Total 200 Output Total 400 500 Balance -200 -500 Intake: Oral 200 Output: Urine 400 500 Other: Voiding Method Toilet Toilet Urinal Urinal Diaper Diaper Incontinent Incontinent - Exam Gen: awake, alert, depressed HEENT: normocephalic, atraumatic Resp: decreased Breath sounds, no wheezing CVS: good distal perfusion x 4, AICD present in left upper chest GI: soft, NTND + BS Neuro: non-focal, moving all extremities, CN 2-12 intact Psych: cooperative Extremities: No clubbing cyanosis, 2+ bilateral edema - Labs CBC & Chem 7: 08/30/20 06:55 08/31/20 07:44 Labs: Abnormal Lab Results - Last 24 Hours (Table) 08/31/20 08/31/20 08/31/20 Range/Units 07:44 07:44 11:40 PT 32.9 H (9.0-12.0) sec INR 3.4 H (<1.2) BUN 60.0 H (9.0-27.0) mg/dL Est GFR (CKD-EPI)AfAm 49.5 L (60.0-200.0) Est GFR (CKD-EPI)NonAf 42.7 L (60.0-200.0) BUN/Creatinine Ratio 40.00 H (12.00-20.00) Ratio Glucose 284 H (70-110) mg/dL POC Glucose (mg/dL) 224 H (75-99) mg/dL Lactate Dehydrogenase 409 H (120-246) U/L C-Reactive Protein 1.3 H (0.0-0.8) mg/dL 08/31/20 08/31/20 09/01/20 Range/Units 17:03 20:41 06:52 PT (9.0-12.0) sec INR (<1.2) BUN (9.0-27.0) mg/dL Est GFR (CKD-EPI)AfAm (60.0-200.0) Est GFR (CKD-EPI)NonAf (60.0-200.0) BUN/Creatinine Ratio (12.00-20.00) Ratio Glucose (70-110) mg/dL POC Glucose (mg/dL) 332 H 349 H 198 H (75-99) mg/dL Lactate Dehydrogenase (120-246) U/L C-Reactive Protein (0.0-0.8) mg/dL 09/01/20 Range/Units 07:08 PT 34.7 H (9.0-12.0) sec INR 3.6 H (<1.2) BUN (9.0-27.0) mg/dL Est GFR (CKD-EPI)AfAm (60.0-200.0) Est GFR (CKD-EPI)NonAf (60.0-200.0) BUN/Creatinine Ratio (12.00-20.00) Ratio Glucose (70-110) mg/dL POC Glucose (mg/dL) (75-99) mg/dL Lactate Dehydrogenase (120-246) U/L C-Reactive Protein (0.0-0.8) mg/dL Assessment and Plan Plan: COVID pneumonitis with acute hypoxic respiratory failure and concomitant COPD exacerbation -Continue with Solu-medrol -Duonebs -Vit C, Vit D, Melatonin, Zinc On 10 L oxygen Pulmonology following, appreciate input ROSELYN on CKD 3B -C/w IVFs -Monitor BMP Serum creatinine down to 1.5, monitor. Chronic conditions: Type II DM, COPD, hyperlipidemia, gout, A. fib -Continue with home medications -Lispro insulin sliding scale and blood glucose monitoring weakness: Consult PT/OT Hypervolemia, multifactorial with acute on chronic systolic congestive heart failure ejection fraction 30-35% Started IV Lasix for 2020 Obtained 2-D echo, EF 30-35% Consult cardiology Nonsustained V. tach 5 beats yesterday Monitor on telemetry, cardiology consult DVT prophylaxis -Coumadin INR 3.6 CODE STATUS: Full Code Discussed with: Patient Anticipated discharge date: 2-[address]: home versus rehab
--- NOTE | 2020-09-01 10:14 | XR ---
EXAMINATION TYPE: XR chest 1V portable DATE OF EXAM: 09/01/2020 COMPARISON: 08/31/2020 HISTORY: Abnormal x-ray TECHNIQUE: Single frontal view of the chest is obtained. FINDINGS: Bilateral infiltrate noted and there is elevation the right hemidiaphragm with poor inspir ation. Chronic thoracic cage deformity stable. Apical pleural thickening seen. Extensive postsurgical change and cardiac device noted. IMPRESSION: Stable bilateral infiltrate
[2020-09-01 11:17] LABS: Glucose,Whole Blood 216 mg/dL (75-99)
[2020-09-01 12:01] LABS: African American GFR (CKD) 42.6 (60.0-200.0); Albumin 4.1 g/dL (3.80-4.90); Albumin/Globulin Ratio 1.78 (1.60-3.17); Anion Gap 13.8 mmol/L (4.00-12.00); BUN/Creat Ratio 37.06 Ratio (12.00-20.00); Calcium 9.3 mg/dL (8.7-10.3); Carbon Dioxide 27.2 mmol/L (21.6-31.8); Globulin 2.3 g/dL (1.6-3.3); Non-African American GFR(CKD) 36.7 (60.0-200.0); Potassium 4.9 mmol/L (3.5-5.5); Total Bilirubin 1.2 mg/dL (0.2-1.2); Total Protein 6.4 g/dL (6.2-8.2)
--- NOTE | 2020-09-01 12:06 | P.CRDCN ---
History of Present Illness Consult date: 09/01/20 History of present illness: CHIEF COMPLAINT: CHF, EF 30% HISTORY OF PRESENT ILLNESS: This is a 80-year-old male with a past medical history significant for paroxysmal atrial fibrillation, coronary artery disease with three-vessel CABG (GIBBONS to LAD, SVG to diagonal, and SVG to PDA) in 1992, ischemic cardiomyopathy with previous biventricular ICD, COPD, hypertension, hyperlipidemia, and diabetes mellitus. Patient follows in the office with Dr. Giraldo. We have been asked to see the patient in consultation for CHF with dec reased EF. Patient presented to the hospital with cough and shortness of breath. Patient was found to be positive for Covid 19. Patient had an echocardiogram completed revealing ejection fraction 30-35%, mild aortic regurgitation, mild mitral regurgitation, mild tricuspid regurgitation, and mild pulmonary hypertension. DIAGNOSTICS: EKG reveals paced rhythm with PVCs Chest xray stable bilateral infiltrates Laboratory data: WBC 13.6. Hemoglobin 16.2. Platelet count 251. INR 3.6. Sodium 142. Potassium 5.1. Creatinine 2.0 on admission, today 1.5. Current home cardiac medications include Coumadin 5 mg daily, spironolactone 25 mg twice a day, Lasix 40 mg daily, Plavix 75mg daily, Coreg 6.25 mg twice a day, Lipitor 20 mg daily REVIEW OF SYSTEMS: Thorough review of systems not completed secondary to limited evaluation/examination due to Covid19 PHYSICAL EXAM: Thorough physical exam not completed secondary to limited evaluation/examination due to Covid19 ASSESSMENT: Covid 19 Acute hypoxic respiratory failure Paroxysmal atrial fibrillation, on anticoagulation with Coumadin Supratherapeutic INR Coronary artery disease with previous CABG 1991 Ischemic cardiomyopathy with history of biventricular ICD Chronic systolic congestive heart failure Acute kidney injury COPD Hypertension Hyperlipidemia Former nicotine dependence PLAN: Hold Coumadin due to supratherapeutic INR. Monitor daily Patient has been started on IV lasix per medicine Monitor kidney function, daily weights, accurate I&O Obtain BNP Continue current cardiac medications Patient currently not on LUISA inhibitor. Will hold off for now and continue to monitor kidney function now that IV lasix has been initiated. If creatinine remains stable, will add LUISA inhibitor. We will follow on an as-needed basis. Please call with questions or concerns. Nurse practitioner note has been reviewed by physician. Signing provider agrees with the documented findings, assessment, and plan of care. Past Medical History Past Medical History: Coronary Artery Disease (CAD), Cancer, COPD, Diabetes Mellitus, Eye Disorder, Hyperlipidemia, Hypertension, Osteoarthritis (OA), Renal Disease Additional Past Medical History / Comment(s): HX SKIN CA, STATES DIET CONTROLLED DIABETIC, currently taking antibiotic for cough & congestion, states cough is better since starting antibiotic, see Dr Giraldo H & P History of Any Multi-Drug Resistant Organisms: None Reported Past Surgical History: AICD, Coronary Bypass/CABG, Heart Catheterization, Heart Catheterization With Stent, Orthopedic Surgery Additional Past Surgical History / Comment(s): lung surgery to remove calcium deposits, left knee ligament repair, excision and skin grafting of skin cancer nose, CABG X3; Cataracts removed, stent for aortic aneurysm Past Anesthesia/Blood Transfusion Reactions: No Reported Reaction Date of Last Stent Placement:: 1999 Type of Cardiac Device: AICD Device Placement Date:: 2009 Past Psychological History: Depression Smoking Status: Never smoker Past Alcohol Use History: Occasional Additional Past Alcohol Use History / Comment(s): QUIT SMOKING APPROX 1977, SMOKED 1PPD FROM AGE 8 Past Drug Use History: None Reported - Past Family History Mother Family Medical History: Cancer Father Family Medical History: CVA/TIA Medications and Allergies Home Medications Medication Instructions Recorded Confirmed Type Atorvastatin [Lipitor] 20 mg PO HS 04/30/16 08/24/20 History Carvedilol [Coreg] 6.25 mg PO BID 04/30/16 08/24/20 History Clopidogrel [Plavix] 75 mg PO DAILY 04/30/16 08/24/20 History Furosemide [Lasix] 40 mg PO DAILY 04/30/16 08/24/20 History Spironolactone [Aldactone] 25 mg PO BID 04/30/16 08/24/20 History Escitalopram [Lexapro] 10 mg PO DAILY 07/11/16 08/24/20 History Budesonide-Formot 160-4.5 Mcg 2 puff INHALATION RT-BID 02/09/18 08/24/20 History [Symbicort 160-4.5 Mcg Inhaler] Albuterol Nebulized [Ventolin 2.5 mg INHALATION RT-Q6H PRN 08/23/19 08/24/20 History Nebulized] Warfarin [Coumadin] 5 mg PO HS 08/23/19 08/24/20 History allopurinoL [Zyloprim] 100 mg PO DAILY 08/23/19 08/24/20 History Glimepiride [Amaryl] 1 mg PO [id number] 09/29/19 08/24/20 History calcitrioL [Rocaltrol] 0.25 mcg PO MOWEFR 08/24/20 08/24/20 History Allergies Allergy/AdvReac Type Severity Reaction Status Date / Time ibuprofen [From Motrin] AdvReac Nausea & Verified 08/24/20 19:33 Vomiting Physical Exam Vitals: Vital Signs Temp Pulse Resp BP Pulse Ox 09/01/20 09:29 97.5 F L 61 24 116/80 86 L 09/01/20 08:00 61 24 09/01/20 05:30 97.5 F L 57 L 17 126/80 90 L 09/01/20 02:10 97.5 F L 56 L 16 146/84 90 L 08/31/20 21:57 97.9 F 54 L 15 144/91 90 L 08/31/20 20:00 15 08/31/20 18:00 98.7 F 55 L 20 138/85 88 L 08/31/20 14:00 98.5 F 59 L 20 137/84 88 L 08/31/20 12:23 52 L 89 L Intake and Output 08/31/20 09/01/20 09/01/20 22:59 06:59 14:59 Output Total 600 300 Balance -600 -300 Output: Urine 600 300 Other: Voiding Method Toilet Toilet Urinal Urinal Diaper Diaper Incontinent Incontinent Results 08/30/20 06:55 09/01/20 07:08 Cardiac Enzymes 08/31/20 Range/Units 07:44 Lactate Dehydrogenase 409 H (120-246) U/L Coagulation 09/01/20 Range/Units 07:08 PT 34.7 H (9.0-12.0) sec Comprehensive Metabolic Panel 08/31/20 Range/Units 07:44 Sodium 142 (135-145) mmol/L Potassium 5.1 (3.5-5.5) mmol/L Chloride 107 (96-109) mmol/L Carbon Dioxide 26.4 (21.6-31.8) mmol/L BUN 60.0 H (9.0-27.0) mg/dL Creatinine 1.5 (0.6-1.5) mg/dL Glucose 284 H (70-110) mg/dL Calcium 8.9 (8.7-10.3) mg/dL Current Medications Generic Name Dose Route Start Last Admin Trade Name Freq PRN Reason Stop Dose Admin Albuterol Sulfate 2 puff 08/25/20 08:00 09/01/20 07:42 Albuterol Hfa Inhaler INHALATION 2 puff RT-QID DESIRAE Administration Albuterol Sulfate 3 puff 08/25/20 00:59 Albuterol Hfa Inhaler INHALATION RT-QID PRN Shortness Of Breath Or Wheezing Allopurinol 100 mg 08/25/20 09:00 09/01/20 08:02 Allopurinol 100 Mg Tab PO 100 mg DAILY DESIRAE Administration Ascorbic Acid 1,000 mg 08/25/20 09:00 09/01/20 08:02 Ascorbic Acid 500 Mg Tab PO 1,000 mg DAILY DESIRAE Administration Atorvastatin Calcium 20 mg 08/25/20 21:00 08/31/20 21:56 Atorvastatin 20 Mg Tab PO 20 mg HS DESIRAE Administration Budesonide/Formoterol Fumarate 2 puff 08/25/20 08:00 09/01/20 07:42 Symbicort 160-4.5 Mcg Inhaler INHALATION 2 puff RT-BID DESIRAE Administration Calcitriol 0.25 mcg 08/25/20 09:00 09/01/20 08:03 Calcitriol 0.25 Mcg Cap PO 0.25 mcg MOWEFR DESIRAE Administration Carvedilol 6.25 mg 08/25/20 09:00 09/01/20 08:02 Carvedilol 6.25 Mg Tab PO 6.25 mg BID DESIRAE Administration Cholecalciferol 125 mcg 08/25/20 09:00 09/01/20 08:01 Cholecalciferol 25 Mcg (1000 Iu) Tablet PO 125 mcg DAILY DESIRAE Administration Citalopram Hydrobromide 10 mg 08/31/20 13:00 09/01/20 08:03 Citalopram Hydrobromide 10 Mg Tab PO 10 mg DAILY DESIRAE Administration Clopidogrel Bisulfate 75 mg 08/25/20 09:00 09/01/20 08:02 Clopidogrel 75 Mg Tab PO 75 mg DAILY DESIRAE Administration Dexamethasone 6 mg 08/30/20 09:00 09/01/20 08:02 Dexamethasone 2 Mg Tab PO 6 mg DAILY DESIRAE Administration Furosemide 40 mg 08/31/20 13:30 09/01/20 08:03 Furosemide 10 Mg/Ml 4 Ml Vial IV 40 mg Q12HR DESIRAE Administration Guaifenesin 200 mg 08/30/20 02:38 08/31/20 21:56 Guaifenesin Syrup 100mg/5ml 200 Mg/10 Ml Cup PO 200 mg TID PRN Administration Cough Sodium Chloride 1,000 mls @ 20 mls/hr 08/25/20 01:00 09/01/20 06:23 Saline 0.9% IV Not Given .Q24H DESIRAE Insulin Aspart 0 unit 08/25/20 07:30 09/01/20 08:02 Insulin Aspart (Novolog) 100 Unit/Ml Vial SQ 2 unit ACHS DESIRAE Administration Protocol Insulin Detemir 10 unit 08/26/20 21:00 08/31/20 21:56 Insulin Detemir (Levemir) 100 Unit/Ml Syr SQ 10 unit HS DESIRAE Administration Melatonin 5 mg 08/25/20 00:59 08/29/20 20:42 Melatonin 5 Mg Tablet PO 5 mg HS PRN Administration Insomnia Miscellaneous Information 1 each 08/25/20 00:59 Warfarin Per Pharmacy MISCELLANE DIRECTED PRN Per Protocol Protocol Spironolactone 25 mg 08/25/20 09:00 09/01/20 08:02 Spironolactone 25 Mg Tab PO 25 mg BID DESIRAE Administration Tiotropium [place] 2 puff 08/25/20 08:00 09/01/20 07:42 Tiotropium 2.5 Mcg Inhaler INHALATION 2 puff RT-DAILY DESIRAE Administration Warfarin Sodium 0 mg 09/01/20 18:00 Warfarin 0.5 Mg Tab PO 09/01/20 18:01 ONCE@1800 ONE Intake and Output 08/31/20 09/01/20 09/01/20 22:59 06:59 14:59 Output Total 600 300 Balance -600 -300 Output: Urine 600 300 Other: Voiding Method Toilet Toilet Urinal Urinal Diaper Diaper Incontinent Incontinent 08/30/20 06:55 08/31/20 07:44
[2020-09-01 12:12] LABS: Basophils # (A) 0.03 X 10*3/uL (0.00-0.10); Basophils % (A) 0.2 %; Eosinophils # (A) 0.01 X 10*3/uL (0.04-0.35); Eosinophils % (A) 0.1 %; HCT 53.4 % (39.6-50.0); HGB 17.1 g/dL (13.0-17.0); Lymphocytes # (A) 0.64 X 10*3/uL (0.90-5.00); Lymphocytes % (A) 3.6 %; MCH 31.1 pg (27.0-32.0); MCV 97.1 fL (80.0-97.0); Mean Platelet Volume 10.1 fL (9.5-12.2); Monocytes # (A) 1.29 X 10*3/uL (0.20-1.00); Monocytes % (A) 7.4 %; Neutrophils % (A) 87.1 %; Platelet Count 300 X 10*3/uL (140-440); RDW 13.9 % (11.5-14.5); WBC 17.55 X 10*3/uL (4.50-10.00)
[2020-09-01 12:49] LABS: C Reactive Protein 5.8 mg/dL (0.0-0.8)
[2020-09-01] MEDS: MORPHINE SULFATE 2 MG/ML SYRINGE IVP PRN ×2 (14:20→20:49)
--- NOTE | 2020-09-01 15:44 | P.PN ---
Subjective Progress Note Date: 09/01/20 80-year-old white male patient with past medical history of COPD, coronary artery disease, diabetes mellitus type 2, hypertension, hyperlipidemia, osteoarthritis, chronic kidney disease, cardiomyopathy with AICD placement came into the emergency department on a 2020 for evaluation of worsening cough and dyspnea. Patient was sent in by primary care physician for possible monoclonal antibody infusion. Patient has been having diarrhea, fever and fatigue, his symptom onset was approximately 4-5 days prior to presentation. In the emergency department he was given an infusion of BAM/MERVIN. Subsequently he developed hypoxemia, placed on supplemental oxygen, chest x-ray shows moderate bibasilar opacities concerning for infiltrates, EKG shows paced rhythm. Admission labs show lymphopenia with lymphocyte count of 0.8, increased CBC was unremarkable, d-dimer is 2.18, sodium is 134 and the rest of the electrolytes were unremarkable, BUN 42, creatinine is 2.03, ferritin level is 744, LDH is 846, CRP is 147.9, pro calcitonin level is 0.21. Patient was started IV Solu- Medrol, patient is on Coumadin with INR of 2.24. No acute distress, diarrhea is improving. Patient was reevaluated today on 08/26/2020, feels better, he is on 5 L nasal cannula, and his O2 sats is 90%. Patient does have shortness of breath with activity. Intermittent cough, no wheezing. His INR today is 3.7, d-dimer 2.18 on admission. BUN is 50 creatinine 2.1. LDH 846 C-reactive protein 148. On 08/27/2020 patient seen in follow-up medical floor, he is on 3 L of oxygen his pulse ox is 86%, and his FiO2 was diabetic up to 5 L and he is satting about 90%, he is on Remdesivir D to treatment, he is up in the chair, feeling weak but overall reports no worsening dyspnea. Mild edema in his lower extremities, we'll give the patient a dose of IV Lasix 40 mg, he continues on Solu-Medrol 60 mg every 6 hours, vitamins, he is on Symbicort, is on Coumadin for history of A. fib. His INR is 4.8 today. Chest pain, no hemoptysis, recent chest x-ray. No nausea vomiting or diarrhea. On 08/28/2020 patient is seen in follow-up on medical floor, he is currently on 10 L of oxygen his pulse ox is 92%, he is afebrile, hemodynamically stable, he is FiO2 requirement has increased , he looks a little bit more fatigued and weak, and he states he feels little depressed today, no chest pain, no nausea or vomiting. Appears to be in no distress. He is sitting up in the recliner, seems to be breathing comfortably, he continues on Decadron, polyvitamins, he remains on Coumadin, his INR today is 2.9, white blood cell count is 13.6, hemoglobin is 16.2, electrolytes were unremarkable, B1 is 64, creatinine is 1.6. Tolerating oral intake. On 08/31/2020 patient seen in follow-up on the medical floor. he seems very depressed today, is currently on 10 L per high flow nasal cannula, his pulse ox is between 85-89%, does easily desaturate with any exertion, but appears to be in no acute distress, is afebrile, no cough with chest discomfort, history of chest x-ray today shows patchy bilateral airspace disease no pneumothorax, stable findings. Today's labs have been noted, his INR today 3.4, electrolytes are within normal limits, BUN is 60 creatinine is 1.5, LDH is trending down, down to 409, and CRP is down to 1.3. Patient remains on oral Decadron 6 mg daily, he is on Coumadin which is being dosed by pharmacy, and his Lasix currently is at 40 mg every 12 hours this was started today. On 09/01/2020, the patient is extremely down and depressed. He makes comments about quitting the treatment as the patient is pulling on his nasal mask on and off and he doesn't want to continue to treatment. He is also is interested in hospice care. Based on that, I contacted the family and talked to his daughter her name is highly and informed her of the situation. I will also start the patient on Celexa 20 mg by mouth daily. Noted the patient's occupation is been worse and the patient is currently on high flow oxygen 60 L and FiO2 of 90%. Noted oxidation got worse yesterday and the patient's follow-up chest x-ray from today is essentially stable. Continues to have congested cough. He still having some shortness of breath even at rest. Lower extremity edema still present and the patient is on Lasix 40 mg IV every 12 hours. He is also on Decadron 6 mg on a daily basis. INR today is at 3.6. Creatinine is at 1.7. LDH level was 505 and a CRP level was 5.8.. The proBNP level was 1190. No other new complaints otherwise for now. The patient seems to be quite down and depressed. Oral intake has also dropped significantly. Objective - Vital Signs Vital signs: Vital Signs Temp 97.8 F 09/01/20 13:55 Pulse 55 L 09/01/20 13:55 Resp 25 H 09/01/20 13:55 BP 127/88 09/01/20 13:55 Pulse Ox 91 L 09/01/20 13:55 Intake & Output 08/31/20 09/01/20 09/01/20 18:59 06:59 18:59 Intake Total 200 Output Total 400 500 Balance -200 -500 Intake: Oral 200 Output: Urine 400 500 Other: Voiding Method Toilet Toilet Toilet Urinal Urinal Urinal Diaper Diaper Diaper Incontinent Incontinent Incontinent - Exam GENERAL EXAM: Alert, pleasant, 80-year-old white male, on high flow oxygen with 60 L and FiO2 of 90% HEAD: Normocephalic/atraumatic. EYES: Normal reaction of pupils, equal size. Conjunctiva pink, sclera white. NOSE: Clear with pink turbinates. THROAT: No erythema or exudates. NECK: No masses, no JVD, no thyroid enlargement, no adenopathy. CHEST: No chest wall deformity. Symmetrical expansion. LUNGS: Equal air entry with diffuse crackles CVS: Regular rate and rhythm, normal S1 and S2, no gallops, no murmurs, no rubs ABDOMEN: Soft, nontender. No hepatosplenomegaly, normal bowel sounds, no guarding or rigidity. EXTREMITIES: No clubbing, no edema, no cyanosis, 2+ pulses and upper and lower extremities. MUSCULOSKELETAL: Muscle strength and tone normal. SPINE: No scoliosis or deformity SKIN: No rashes CENTRAL NERVOUS SYSTEM: Alert and oriented -3. No focal deficits, tone is normal in all 4 extremities. PSYCHIATRIC: Alert and oriented -3. Appropriate affect. Intact judgment and insight. - Labs CBC & Chem 7: 09/01/20 07:08 09/01/20 07:08 Labs: Abnormal Lab Results - Last 24 Hours (Table) 08/31/20 08/31/20 09/01/20 Range/Units 17:03 20:41 06:52 WBC (4.50-10.00) X 10*3/uL Hgb (13.0-17.0) g/dL Hct (39.6-50.0) % MCV (80.0-97.0) fL Immature Gran # (0.00-0.04) X 10*3/uL Neutrophils # (1.80-7.70) X 10*3/uL Lymphocytes # (0.90-5.00) X 10*3/uL Monocytes # (0.20-1.00) X 10*3/uL Eosinophils # (0.04-0.35) X 10*3/uL PT (9.0-12.0) sec INR (<1.2) Anion Gap (4.00-12.00) mmol/L BUN (9.0-27.0) mg/dL Creatinine (0.6-1.5) mg/dL Est GFR (CKD-EPI)AfAm (60.0-200.0) Est GFR (CKD-EPI)NonAf (60.0-200.0) BUN/Creatinine Ratio (12.00-20.00) Ratio Glucose (70-110) mg/dL POC Glucose (mg/dL) 332 H 349 H 198 H (75-99) mg/dL Lactate Dehydrogenase (120-246) U/L C-Reactive Protein (0.0-0.8) mg/dL 09/01/20 09/01/20 09/01/20 Range/Units 07:08 07:08 07:08 WBC 17.55 H (4.50-10.00) X 10*3/uL Hgb 17.1 H (13.0-17.0) g/dL Hct 53.4 H (39.6-50.0) % MCV 97.1 H (80.0-97.0) fL Immature Gran # 0.28 H (0.00-0.04) X 10*3/uL Neutrophils # 15.30 H (1.80-7.70) X 10*3/uL Lymphocytes # 0.64 L (0.90-5.00) X 10*3/uL Monocytes # 1.29 H (0.20-1.00) X 10*3/uL Eosinophils # 0.01 L (0.04-0.35) X 10*3/uL PT 34.7 H (9.0-12.0) sec INR 3.6 H (<1.2) Anion Gap 13.80 H (4.00-12.00) mmol/L BUN 63.0 H (9.0-27.0) mg/dL Creatinine 1.7 H (0.6-1.5) mg/dL Est GFR (CKD-EPI)AfAm 42.6 L (60.0-200.0) Est GFR (CKD-EPI)NonAf 36.7 L (60.0-200.0) BUN/Creatinine Ratio 37.06 H (12.00-20.00) Ratio Glucose 201 H (70-110) mg/dL POC Glucose (mg/dL) (75-99) mg/dL Lactate Dehydrogenase 505 H (120-246) U/L C-Reactive Protein 5.8 H (0.0-0.8) mg/dL 09/01/20 Range/Units 11:16 WBC (4.50-10.00) X 10*3/uL Hgb (13.0-17.0) g/dL Hct (39.6-50.0) % MCV (80.0-97.0) fL Immature Gran # (0.00-0.04) X 10*3/uL Neutrophils # (1.80-7.70) X 10*3/uL Lymphocytes # (0.90-5.00) X 10*3/uL Monocytes # (0.20-1.00) X 10*3/uL Eosinophils # (0.04-0.35) X 10*3/uL PT (9.0-12.0) sec INR (<1.2) Anion Gap (4.00-12.00) mmol/L BUN (9.0-27.0) mg/dL Creatinine (0.6-1.5) mg/dL Est GFR (CKD-EPI)AfAm (60.0-200.0) Est GFR (CKD-EPI)NonAf (60.0-200.0) BUN/Creatinine Ratio (12.00-20.00) Ratio Glucose (70-110) mg/dL POC Glucose (mg/dL) 216 H (75-99) mg/dL Lactate Dehydrogenase (120-246) U/L C-Reactive Protein (0.0-0.8) mg/dL Assessment and Plan Plan: #1. Acute hypoxic respiratory failure related to Covid 19 pneumonia, with onset of symptoms within 4-5 days presentation to the hospital, patient is given a dose of BAM/MERVIN on 08/24/2020, however progressed to acute hypoxic respiratory failure, and completed Remdesivir. For now the patient is still on Decadron. His oxidation is gradually getting worse. He has a congested cough. He is doing for pulmonary toileting. Not using incentive spirometer regularly. The patient is on Decadron. The patient is also on high flow oxygen at 6 L with an FiO2 of 90%. The follow-up chest x-ray from today is quite stable with stable bilateral pulmonary infiltrates. Inflammatory markers are not significantly elevated for now. The patient is fully into correlated. #2. Inflammatory markers and d-dimer due to the above #3. History of chronic A. fib with history of permanent pacemaker, on Coumadin, and INR is 3.6. #4. Hypertension #5. Hyperlipidemia #6. Ischemic cardiomyopathy status post Bi-V AICD placement #7. Diabetes mellitus type 2 #8. Osteoarthritis #9. Depression #10. COPD Plan Contacted the family on the situation Use high flow oxygen Incentive spirometer and the breathing and pulmonary toileting Continue articulation with warfarin Keep the high flow oxygen and uses the Decadron 6 mg by mouth daily Continue with Lasix 40 mg IV every 12 hours Monitor renal function Continue Spiriva Continue Ventolin HFA on an estimated basis every 4 hours when necessary Continue Symbicort We'll continue to follow. Prognosis poor baseline above-mentioned comorbidities and the patient's family was made aware.
[2020-09-01 16:26] LABS: Glucose,Whole Blood 210 mg/dL (75-99)
[2020-09-01] MEDS ORDERED: WARFARIN 0.5 MG TAB PO ONE (18:00)
[2020-09-01 20:28] LABS: Glucose,Whole Blood 261 mg/dL (75-99)
[2020-09-01] MEDS: INSULIN DETEMIR (LEVEMIR) 100 UNIT/ML SYR SQ SCH (20:47)
[2020-09-01] MEDS: ATORVASTATIN 20 MG TAB PO SCH (20:49)
[2020-09-02 07:15] LABS: Glucose,Whole Blood 206 mg/dL (75-99)
[2020-09-02] MEDS: INSULIN ASPART (NovoLOG) 100 UNIT/ML VIAL SQ SCH ×4 (07:54→20:29)
[2020-09-02] MEDS: CITALOPRAM HYDROBROMIDE 10 MG TAB PO SCH (07:55)
[2020-09-02] MEDS: allopurinoL 100 MG TAB PO SCH (07:55)
[2020-09-02] MEDS: SPIRONOLACTONE 25 MG TAB PO SCH ×2 (07:55→20:28)
[2020-09-02] MEDS: CLOPIDOGREL 75 MG TAB PO SCH (07:55)
[2020-09-02] MEDS: carvediloL 6.25 MG TAB PO SCH ×2 (07:55→20:28)
[2020-09-02] MEDS: dexAMETHasone 2 MG TAB PO SCH (07:55)
[2020-09-02] MEDS: FUROSEMIDE 10 MG/ML 4 ML VIAL IV SCH ×2 (07:55→20:29)
[2020-09-02] MEDS: ASCORBIC ACID 500 MG TAB PO SCH (07:55)
[2020-09-02] MEDS: CHOLECALCIFEROL 25 MCG (1000 IU) TABLET PO SCH (07:58)
[2020-09-02 08:39] LABS: Basophils % (A) 0 %; Eosinophils % (A) 0 %; HCT 48.9 % (39.0-53.0); HGB 16.8 gm/dL (13.0-17.5); Lymphocytes # (A) 0.4 k/uL (1.0-4.8); Lymphocytes % (A) 3 %; MCH 32.3 pg (25.0-35.0); MCHC 34.2 g/dL (31.0-37.0); MCV 94.4 fL (80.0-100.0); Mean Platelet Volume 7.6; Monocytes # (A) 0.8 k/uL (0-1.0); Monocytes % (A) 6 %; Neutrophils # (A) 12.2 k/uL (1.3-7.7); Neutrophils % (A) 90 %; Platelet Count 256 k/uL (150-450); RBC 5.18 m/uL (4.30-5.90); RDW 13.5 % (11.5-15.5); WBC 13.7 k/uL (3.8-10.6)
[2020-09-02 08:50] LABS: INR 3.1 (<1.2); Prothrombin Time 30.2 sec (9.0-12.0)
[2020-09-02 08:56] LABS: ALT 29 U/L (4-49); AST 20 U/L (17-59); African American GFR (CKD) 45 (>60 ml/min/1.73 sqM); Albumin/Globulin Ratio 1.1; Alkaline Phosphatase 65 U/L (38-126); Anion Gap 6 mmol/L; Blood Urea Nitrogen 64 mg/dL (9-20); Calcium 8.8 mg/dL (8.4-10.2); Carbon Dioxide 32 mmol/L (22-30); Chloride 98 mmol/L (98-107); Globulin 2.7 g/dL; Glucose 210 mg/dL (74-99); Non-African American GFR(CKD) 39 (>60 ml/min/1.73 sqM); Sodium 136 mmol/L (137-145); Total Bilirubin 1.6 mg/dL (0.2-1.3); Total Protein 5.7 g/dL (6.3-8.2)
--- NOTE | 2020-09-02 09:19 | P.PN ---
Subjective Progress Note Date: 09/02/20 Remains on high flow oxygen , feels ok , no cp , no dizziness , no abd pain Objective - Vital Signs Vital signs: Vital Signs Temp 98.0 F 09/02/20 05:08 Pulse 56 L 09/02/20 05:08 Resp 15 09/02/20 05:08 BP 139/71 09/02/20 05:08 Pulse Ox 89 L 09/02/20 05:08 Intake & Output 09/01/20 09/02/20 09/02/20 18:59 06:59 18:59 Output Total 300 1450 Balance -300 -1450 Weight 120 kg 121.397 kg Output: Urine 300 1450 Other: Voiding Method Toilet Toilet Urinal Urinal Diaper Diaper Incontinent Incontinent - Exam Gen: awake, alert, depressed HEENT: normocephalic, atraumatic Resp: decreased Breath sounds, no wheezing CVS: good distal perfusion x 4, AICD present in left upper chest GI: soft, NTND + BS Neuro: non-focal, moving all extremities, CN 2-12 intact Psych: cooperative Extremities: No clubbing cyanosis, 1+ bilateral edema - Labs CBC & Chem 7: 09/02/20 08:06 09/02/20 08:06 Labs: Abnormal Lab Results - Last 24 Hours (Table) 09/01/20 09/01/20 09/01/20 Range/Units 07:08 07:08 11:16 WBC 17.55 H (4.50-10.00) X 10*3/uL Hgb 17.1 H (13.0-17.0) g/dL Hct 53.4 H (39.6-50.0) % MCV 97.1 H (80.0-97.0) fL Immature Gran # 0.28 H (0.00-0.04) X 10*3/uL Neutrophils # 15.30 H (1.80-7.70) X 10*3/uL Lymphocytes # 0.64 L (0.90-5.00) X 10*3/uL Monocytes # 1.29 H (0.20-1.00) X 10*3/uL Eosinophils # 0.01 L (0.04-0.35) X 10*3/uL PT (9.0-12.0) sec INR (<1.2) Sodium (137-145) mmol/L Carbon Dioxide (22-30) mmol/L Anion Gap 13.80 H (4.00-12.00) mmol/L BUN 63.0 H (9.0-27.0) mg/dL Creatinine 1.7 H (0.6-1.5) mg/dL Est GFR (CKD-EPI)AfAm 42.6 L (60.0-200.0) Est GFR (CKD-EPI)NonAf 36.7 L (60.0-200.0) BUN/Creatinine Ratio 37.06 H (12.00-20.00) Ratio Glucose 201 H (70-110) mg/dL POC Glucose (mg/dL) 216 H (75-99) mg/dL Total Bilirubin (0.2-1.3) mg/dL Lactate Dehydrogenase 505 H (120-246) U/L C-Reactive Protein 5.8 H (0.0-0.8) mg/dL Total Protein (6.3-8.2) g/dL Albumin (3.5-5.0) g/dL 09/01/20 09/01/20 09/02/20 Range/Units 16:24 20:23 07:13 WBC (4.50-10.00) X 10*3/uL Hgb (13.0-17.0) g/dL Hct (39.6-50.0) % MCV (80.0-97.0) fL Immature Gran # (0.00-0.04) X 10*3/uL Neutrophils # (1.80-7.70) X 10*3/uL Lymphocytes # (0.90-5.00) X 10*3/uL Monocytes # (0.20-1.00) X 10*3/uL Eosinophils # (0.04-0.35) X 10*3/uL PT (9.0-12.0) sec INR (<1.2) Sodium (137-145) mmol/L Carbon Dioxide (22-30) mmol/L Anion Gap (4.00-12.00) mmol/L BUN (9.0-27.0) mg/dL Creatinine (0.6-1.5) mg/dL Est GFR (CKD-EPI)AfAm (60.0-200.0) Est GFR (CKD-EPI)NonAf (60.0-200.0) BUN/Creatinine Ratio (12.00-20.00) Ratio Glucose (70-110) mg/dL POC Glucose (mg/dL) 210 H 261 H 206 H (75-99) mg/dL Total Bilirubin (0.2-1.3) mg/dL Lactate Dehydrogenase (120-246) U/L C-Reactive Protein (0.0-0.8) mg/dL Total Protein (6.3-8.2) g/dL Albumin (3.5-5.0) g/dL 09/02/20 09/02/20 09/02/20 Range/Units 08:06 08:06 08:06 WBC 13.7 H (4.50-10.00) X 10*3/uL Hgb (13.0-17.0) g/dL Hct (39.6-50.0) % MCV (80.0-97.0) fL Immature Gran # (0.00-0.04) X 10*3/uL Neutrophils # 12.2 H (1.80-7.70) X 10*3/uL Lymphocytes # 0.4 L (0.90-5.00) X 10*3/uL Monocytes # (0.20-1.00) X 10*3/uL Eosinophils # (0.04-0.35) X 10*3/uL PT 30.2 H (9.0-12.0) sec INR 3.1 H (<1.2) Sodium 136 L (137-145) mmol/L Carbon Dioxide 32 H (22-30) mmol/L Anion Gap (4.00-12.00) mmol/L BUN 64 H (9.0-27.0) mg/dL Creatinine 1.62 H (0.6-1.5) mg/dL Est GFR (CKD-EPI)AfAm (60.0-200.0) Est GFR (CKD-EPI)NonAf (60.0-200.0) BUN/Creatinine Ratio (12.00-20.00) Ratio Glucose 210 H (70-110) mg/dL POC Glucose (mg/dL) (75-99) mg/dL Total Bilirubin 1.6 H (0.2-1.3) mg/dL Lactate Dehydrogenase (120-246) U/L C-Reactive Protein (0.0-0.8) mg/dL Total Protein 5.7 L (6.3-8.2) g/dL Albumin 3.0 L (3.5-5.0) g/dL Assessment and Plan Plan: COVID pneumonitis with acute hypoxic respiratory failure and concomitant COPD exacerbation -Continue with Solu-medrol -Duonebs -Vit C, Vit D, Melatonin, Zinc On 10 L oxygen Pulmonology following, appreciate input ROSELYN on CKD 3B -C/w IVFs -Monitor BMP Serum creatinine 1.6, monitor. Chronic conditions: Type II DM, COPD, hyperlipidemia, gout, A. fib -Continue with home medications -Lispro insulin sliding scale and blood glucose monitoring weakness: Consult PT/OT Hypervolemia, multifactorial with acute on chronic systolic congestive heart failure ejection fraction 30-35% continue IV Lasix for 2020 Obtained 2-D echo, EF 30-35% Consult cardiology, input appreciated Nonsustained V. tach 5 beats Monitor on telemetry, cardiology consult, input appreciated DVT prophylaxis -Coumadin, on hold, INR 3.1 Depression: Patient was started on Celexa CODE STATUS: Full Code Discussed with: Patient Anticipated discharge date: 2-[address]: home versus rehab
[2020-09-02] MEDS: ALBUTEROL HFA INHALER INHALATION SCH ×4 (10:31→20:47)
[2020-09-02] MEDS: TIOTROPIUM 2.5 MCG INHALER INHALATION SCH (10:32)
[2020-09-02] MEDS: SYMBICORT 160-4.5 MCG INHALER INHALATION SCH ×2 (10:32→20:48)
[2020-09-02 11:52] LABS: Glucose,Whole Blood 308 mg/dL (75-99)
--- NOTE | 2020-09-02 12:57 | P.PN ---
Subjective Progress Note Date: 09/02/20 80-year-old white male patient with past medical history of COPD, coronary artery disease, diabetes mellitus type 2, hypertension, hyperlipidemia, osteoarthritis, chronic kidney disease, cardiomyopathy with AICD placement came into the emergency department on a 2020 for evaluation of worsening cough and dyspnea. Patient was sent in by primary care physician for possible monoclonal antibody infusion. Patient has been having diarrhea, fever and fatigue, his symptom onset was approximately 4-5 days prior to presentation. In the emergency department he was given an infusion of BAM/MERVIN. Subsequently he developed hypoxemia, placed on supplemental oxygen, chest x-ray shows moderate bibasilar opacities concerning for infiltrates, EKG shows paced rhythm. Admission labs show lymphopenia with lymphocyte count of 0.8, increased CBC was unremarkable, d-dimer is 2.18, sodium is 134 and the rest of the electrolytes were unremarkable, BUN 42, creatinine is 2.03, ferritin level is 744, LDH is 846, CRP is 147.9, pro calcitonin level is 0.21. Patient was started IV Solu- Medrol, patient is on Coumadin with INR of 2.24. No acute distress, diarrhea is improving. Patient was reevaluated today on 08/26/2020, feels better, he is on 5 L nasal cannula, and his O2 sats is 90%. Patient does have shortness of breath with activity. Intermittent cough, no wheezing. His INR today is 3.7, d-dimer 2.18 on admission. BUN is 50 creatinine 2.1. LDH 846 C-reactive protein 148. On 08/27/2020 patient seen in follow-up medical floor, he is on 3 L of oxygen his pulse ox is 86%, and his FiO2 was diabetic up to 5 L and he is satting about 90%, he is on Remdesivir D to treatment, he is up in the chair, feeling weak but overall reports no worsening dyspnea. Mild edema in his lower extremities, we'll give the patient a dose of IV Lasix 40 mg, he continues on Solu-Medrol 60 mg every 6 hours, vitamins, he is on Symbicort, is on Coumadin for history of A. fib. His INR is 4.8 today. Chest pain, no hemoptysis, recent chest x-ray. No nausea vomiting or diarrhea. On 08/28/2020 patient is seen in follow-up on medical floor, he is currently on 10 L of oxygen his pulse ox is 92%, he is afebrile, hemodynamically stable, he is FiO2 requirement has increased , he looks a little bit more fatigued and weak, and he states he feels little depressed today, no chest pain, no nausea or vomiting. Appears to be in no distress. He is sitting up in the recliner, seems to be breathing comfortably, he continues on Decadron, polyvitamins, he remains on Coumadin, his INR today is 2.9, white blood cell count is 13.6, hemoglobin is 16.2, electrolytes were unremarkable, B1 is 64, creatinine is 1.6. Tolerating oral intake. On 08/31/2020 patient seen in follow-up on the medical floor. he seems very depressed today, is currently on 10 L per high flow nasal cannula, his pulse ox is between 85-89%, does easily desaturate with any exertion, but appears to be in no acute distress, is afebrile, no cough with chest discomfort, history of chest x-ray today shows patchy bilateral airspace disease no pneumothorax, stable findings. Today's labs have been noted, his INR today 3.4, electrolytes are within normal limits, BUN is 60 creatinine is 1.5, LDH is trending down, down to 409, and CRP is down to 1.3. Patient remains on oral Decadron 6 mg daily, he is on Coumadin which is being dosed by pharmacy, and his Lasix currently is at 40 mg every 12 hours this was started today. On 09/01/2020, the patient is extremely down and depressed. He makes comments about quitting the treatment as the patient is pulling on his nasal mask on and off and he doesn't want to continue to treatment. He is also is interested in hospice care. Based on that, I contacted the family and talked to his daughter her name is highly and informed her of the situation. I will also start the patient on Celexa 20 mg by mouth daily. Noted the patient's occupation is been worse and the patient is currently on high flow oxygen 60 L and FiO2 of 90%. Noted oxidation got worse yesterday and the patient's follow-up chest x-ray from today is essentially stable. Continues to have congested cough. He still having some shortness of breath even at rest. Lower extremity edema still present and the patient is on Lasix 40 mg IV every 12 hours. He is also on Decadron 6 mg on a daily basis. INR today is at 3.6. Creatinine is at 1.7. LDH level was 505 and a CRP level was 5.8.. The proBNP level was 1190. No other new complaints otherwise for now. The patient seems to be quite down and depressed. Oral intake has also dropped significantly. On today's evaluation of 08/23/2020, the patient is doing poorly. He is currently on high flow oxygen. Is declining the nonrebreather facemask. The patient is currently unable to 60 L with an FiO2 of 90%. His current pulse ox is around 86%. He is awake. He is communicating. His INR is at 3.1. He is on Lasix. He is a negative fluid balance. Creatinine is at 1.6 and the overall fluid balance is been negative. Afebrile. Oral intake has been quite low and poor and a chest x-ray showing stable bilateral pulmonary infiltrates. His echocardiogram also showed a ejection fraction of around 30-35% Objective - Vital Signs Vital signs: Vital Signs Temp 97.8 F 09/02/20 09:50 Pulse 55 L 09/02/20 09:50 Resp 20 09/02/20 09:50 BP 138/75 09/02/20 09:50 Pulse Ox 86 L 09/02/20 09:50 Intake & Output 09/01/20 09/02/20 09/02/20 18:59 06:59 18:59 Output Total 300 1450 Balance -300 -1450 Weight 120 kg 121.397 kg Output: Urine 300 1450 Other: Voiding Method Toilet Toilet Urinal Urinal Diaper Diaper Incontinent Incontinent - Exam GENERAL EXAM: Alert, pleasant, 80-year-old white male, on high flow oxygen with 60 L and FiO2 of 90% HEAD: Normocephalic/atraumatic. EYES: Normal reaction of pupils, equal size. Conjunctiva pink, sclera white. NOSE: Clear with pink turbinates. THROAT: No erythema or exudates. NECK: No masses, no JVD, no thyroid enlargement, no adenopathy. CHEST: No chest wall deformity. Symmetrical expansion. LUNGS: Equal air entry with diffuse crackles CVS: Regular rate and rhythm, normal S1 and S2, no gallops, no murmurs, no rubs ABDOMEN: Soft, nontender. No hepatosplenomegaly, normal bowel sounds, no guarding or rigidity. EXTREMITIES: No clubbing, no edema, no cyanosis, 2+ pulses and upper and lower extremities. MUSCULOSKELETAL: Muscle strength and tone normal. SPINE: No scoliosis or deformity SKIN: No rashes CENTRAL NERVOUS SYSTEM: Alert and oriented -3. No focal deficits, tone is normal in all 4 extremities. PSYCHIATRIC: Alert and oriented -3. Appropriate affect. Intact judgment and insight. - Labs CBC & Chem 7: 09/02/20 08:06 09/02/20 08:06 Labs: Abnormal Lab Results - Last 24 Hours (Table) 09/01/20 09/01/20 09/02/20 Range/Units 16:24 20:23 07:13 WBC (3.8-10.6) k/uL Neutrophils # (1.3-7.7) k/uL Lymphocytes # (1.0-4.8) k/uL PT (9.0-12.0) sec INR (<1.2) Sodium (137-145) mmol/L Carbon Dioxide (22-30) mmol/L BUN (9-20) mg/dL Creatinine (0.66-1.25) mg/dL Glucose (74-99) mg/dL POC Glucose (mg/dL) 210 H 261 H 206 H (75-99) mg/dL Total Bilirubin (0.2-1.3) mg/dL Total Protein (6.3-8.2) g/dL Albumin (3.5-5.0) g/dL 09/02/20 09/02/20 09/02/20 Range/Units 08:06 08:06 08:06 WBC 13.7 H (3.8-10.6) k/uL Neutrophils # 12.2 H (1.3-7.7) k/uL Lymphocytes # 0.4 L (1.0-4.8) k/uL PT 30.2 H (9.0-12.0) sec INR 3.1 H (<1.2) Sodium 136 L (137-145) mmol/L Carbon Dioxide 32 H (22-30) mmol/L BUN 64 H (9-20) mg/dL Creatinine 1.62 H (0.66-1.25) mg/dL Glucose 210 H (74-99) mg/dL POC Glucose (mg/dL) (75-99) mg/dL Total Bilirubin 1.6 H (0.2-1.3) mg/dL Total Protein 5.7 L (6.3-8.2) g/dL Albumin 3.0 L (3.5-5.0) g/dL 09/02/20 Range/Units 11:49 WBC (3.8-10.6) k/uL Neutrophils # (1.3-7.7) k/uL Lymphocytes # (1.0-4.8) k/uL PT (9.0-12.0) sec INR (<1.2) Sodium (137-145) mmol/L Carbon Dioxide (22-30) mmol/L BUN (9-20) mg/dL Creatinine (0.66-1.25) mg/dL Glucose (74-99) mg/dL POC Glucose (mg/dL) 308 H (75-99) mg/dL Total Bilirubin (0.2-1.3) mg/dL Total Protein (6.3-8.2) g/dL Albumin (3.5-5.0) g/dL Assessment and Plan Plan: #1. Acute hypoxic respiratory failure related to Covid 19 pneumonia, with onset of symptoms within 4-5 days presentation to the hospital, patient is given a dose of BAM/MERVIN on 08/24/2020, however progressed to acute hypoxic respiratory failure, and completed Remdesivir. For now the patient is still on Decadron. S zully he came in, the patient's oxygenation gradually got worse. He was on 6 L and he gradually progressed and he required higher amounts of oxygen with 60 L with an FiO2 of 90%. With that, his pulse ox is 86%. Remain on the same treatment with Decadron 6 mg on a daily basis and he is also being diuresis with negative fluid balance and the patient is producing excessive amount of urine output. Melvin cath is in place. #2. Inflammatory markers and d-dimer due to the above #3. History of chronic A. fib with history of permanent pacemaker, on Coumadin, and INR is 3.1 #4. Hypertension #5. Hyperlipidemia #6. Ischemic cardiomyopathy status post Bi-V AICD placement ejection fraction i s poor at around 35%. #7. Diabetes mellitus type 2 #8. Osteoarthritis #9. Depression #10. COPD Plan Contacted the family on the situation Use high flow oxygen and utilized 100% nonrebreather if needed. He is declining the nonrebreather and he wants to stay on the high flow oxygen. Overall pulmonary status is quite borderline. Incentive spirometer and the breathing and pulmonary toileting Continue anticoagulation with warfarin, INR 3.1 Keep the high flow oxygen and uses the Decadron 6 mg by mouth daily Continue with Lasix 40 mg IV every 12 hours Monitor renal function Continue Spiriva Continue Ventolin HFA on an estimated basis every 4 hours when necessary Continue Symbicort We'll continue to follow. Prognosis poor baseline above-mentioned comorbidities and the patient's family was made aware.
[2020-09-02 16:38] LABS: Glucose,Whole Blood 265 mg/dL (75-99)
[2020-09-02] MEDS ORDERED: WARFARIN 0.5 MG TAB PO ONE (18:00)
[2020-09-02] MEDS: SODIUM CHLORIDE 0.9% 1,000 ML IV SCH (19:15)
[2020-09-02 20:15] LABS: Glucose,Whole Blood 382 mg/dL (75-99)
[2020-09-02] MEDS: ATORVASTATIN 20 MG TAB PO SCH (20:28)
[2020-09-02] MEDS: INSULIN DETEMIR (LEVEMIR) 100 UNIT/ML SYR SQ SCH (20:28)
[2020-09-02] MEDS: MELATONIN 5 MG TABLET PO PRN (20:28)
[2020-09-03 00:14] LABS: ABG Base Excess 6.7 mmol/L; ABG HCO3 30 mmol/L (21-25); ABG Oxygen Saturation 84.1 % (94-97); ABG PCO2 41 mmHg (35-45); ABG PH 7.47 (7.35-7.45); ABG TCO2 32 mmol/L (19-24); Allen Test Performed? Yes
[2020-09-03 00:19] LABS: ABG PO2 49 mmHg (83-108)
[2020-09-03] MEDS ORDERED: LORazepam 2 MG/ML INJ IV STA ×2 (00:19→02:55)
--- NOTE | 2020-09-03 01:15 | P.EN ---
notified to evaluate patient for worsening hypoxemia patient 80 years old admitted for acute hypoxic respiratory failure , dueto COVID . patient also has systolic CHF with LVEF 30-35% patient is currently on airvo, he has been maintained on that , with oxygen sat above 88%. however, now he looked more tired, with worsening hypoxemia at low 80s . he denies any chest pain , seems to be arousable with verbal stimulation . patient oriented to self, place and situation . he feels he is not getting enough air if he starts talking. patient requested that he is made full code, and expressed that he wants everything medically possible to save his life, he said " doc, i am not ready to and I want to live" , he would like me to try anything to help him breath better and get oxygen as long as he does not feel pain . He wants to get intubated if it could save his life, and in the event of him unable to maintain his oxygenation and cant breath on his own. ABG showed PH 7.4 Pco2 41, Po2 49 patient switched to bipap , initially he did not seem to tolerate, and felt anxious . he was given 1 mg of ativan IV. patient tolerated the Bipap better after ativan , currently looks comfortable , good breath sounds throughout , oxygen sat maintained at or above 88%. will continue to monitor closely 40 minutes spent in critical care service in the care of this patient
[2020-09-03] MEDS: MORPHINE SULFATE 2 MG/ML SYRINGE IVP PRN ×2 (04:28→23:45)
[2020-09-03 04:49] LABS: ABG Base Excess 6.5 mmol/L; ABG HCO3 32 mmol/L (21-25); ABG Oxygen Saturation 82.4 % (94-97); ABG PCO2 52 mmHg (35-45); ABG PH 7.39 (7.35-7.45); ABG TCO2 33 mmol/L (19-24); Allen Test Performed? Yes
[2020-09-03 04:50] LABS: ABG PO2 51 mmHg (83-108)
[2020-09-03] MEDS ORDERED: SODIUM CHLORIDE 0.9% 500 ML 500 ML IV ONE (05:45)
[2020-09-03 06:44] LABS: Glucose,Whole Blood 141 mg/dL (75-99)
[2020-09-03] MEDS ORDERED: ACETAMINOPHEN TAB 325 MG TAB PO PRN (06:46)
--- NOTE | 2020-09-03 08:17 | XR ---
EXAMINATION TYPE: XR chest 1V portable DATE OF EXAM: 09/03/2020 CLINICAL HISTORY: Difficulty breathing and hypoxia progress study. TECHNIQUE: Single AP portable upright view of the chest is obtained. COMPARISON: Chest x-ray from 2 days earlier and older studies. FINDINGS: Overlying sternal wires and mediastinal clips redemonstrated. Stable cardiomegaly with mul ti lead pacemaker/defibrillator. Persistent right upper to mid posterior rib deformities. Persistent elevated right hemidiaphragm with right mid to basilar and left basilar opacities. Right-sided findin gs more prominent and confluent versus most recent study. IMPRESSION: Elevated right hemidiaphragm with focal and confluent bibasilar opacities consistent with Covid-19 infection redemonstrated. Findings more prominent in the right lower lung above elevated ri ght hemidiaphragm versus most recent x-ray.
[2020-09-03] MEDS: ALBUTEROL HFA INHALER INHALATION SCH ×4 (08:22→20:22)
[2020-09-03] MEDS: TIOTROPIUM 2.5 MCG INHALER INHALATION SCH (08:22)
[2020-09-03] MEDS: allopurinoL 100 MG TAB PO SCH (08:25)
[2020-09-03] MEDS: ASCORBIC ACID 500 MG TAB PO SCH (08:25)
[2020-09-03] MEDS: CITALOPRAM HYDROBROMIDE 10 MG TAB PO SCH (08:26)
[2020-09-03] MEDS: CHOLECALCIFEROL 25 MCG (1000 IU) TABLET PO SCH (08:26)
[2020-09-03] MEDS: FUROSEMIDE 10 MG/ML 4 ML VIAL IV SCH ×2 (08:29→21:41)
[2020-09-03] MEDS: INSULIN ASPART (NovoLOG) 100 UNIT/ML VIAL SQ SCH ×4 (08:29→21:47)
--- NOTE | 2020-09-03 08:29 | P.PN ---
Subjective Progress Note Date: 09/03/20 Became more Hypoxic transferred to ICU, requiring BiPAP. Objective - Vital Signs Vital signs: Vital Signs Temp 98.0 F 09/03/20 05:27 Pulse 70 09/03/20 08:00 Resp 33 H 09/03/20 08:00 BP 119/89 09/03/20 08:00 Pulse Ox 87 L 09/03/20 08:00 Intake & Output 09/02/20 09/03/20 09/03/20 18:59 06:59 18:59 Output Total 1600 250 Balance -1600 -250 Output: Urine 1600 250 Other: Voiding Method Urinal Diaper Incontinent # Voids 2 1 - Exam Gen: awake, alert, depressed, on BiPAP HEENT: normocephalic, atraumatic Resp: decreased Breath sounds, no wheezing CVS: good distal perfusion x 4, AICD in place GI: soft, NTND + BS Neuro: non-focal, moving all extremities, CN 2-12 intact Psych: cooperative Extremities: No clubbing cyanosis, 1+ bilateral edema - Labs CBC & Chem 7: 09/02/20 08:06 09/02/20 08:06 Labs: Abnormal Lab Results - Last 24 Hours (Table) 09/02/20 09/02/20 09/02/20 Range/Units 08:06 08:06 08:06 WBC 13.7 H (3.8-10.6) k/uL Neutrophils # 12.2 H (1.3-7.7) k/uL Lymphocytes # 0.4 L (1.0-4.8) k/uL PT 30.2 H (9.0-12.0) sec INR 3.1 H (<1.2) ABG pH (7.35-7.45) ABG pCO2 (35-45) mmHg ABG pO2 (83-108) mmHg ABG HCO3 (21-25) mmol/L ABG Total CO2 (19-24) mmol/L ABG O2 Saturation (94-97) % Sodium 136 L (137-145) mmol/L Carbon Dioxide 32 H (22-30) mmol/L BUN 64 H (9-20) mg/dL Creatinine 1.62 H (0.66-1.25) mg/dL Glucose 210 H (74-99) mg/dL POC Glucose (mg/dL) (75-99) mg/dL Total Bilirubin 1.6 H (0.2-1.3) mg/dL Total Protein 5.7 L (6.3-8.2) g/dL Albumin 3.0 L (3.5-5.0) g/dL 09/02/20 09/02/20 09/02/20 Range/Units 11:49 16:36 20:13 WBC (3.8-10.6) k/uL Neutrophils # (1.3-7.7) k/uL Lymphocytes # (1.0-4.8) k/uL PT (9.0-12.0) sec INR (<1.2) ABG pH (7.35-7.45) ABG pCO2 (35-45) mmHg ABG pO2 (83-108) mmHg ABG HCO3 (21-25) mmol/L ABG Total CO2 (19-24) mmol/L ABG O2 Saturation (94-97) % Sodium (137-145) mmol/L Carbon Dioxide (22-30) mmol/L BUN (9-20) mg/dL Creatinine (0.66-1.25) mg/dL Glucose (74-99) mg/dL POC Glucose (mg/dL) 308 H 265 H 382 H (75-99) mg/dL Total Bilirubin (0.2-1.3) mg/dL Total Protein (6.3-8.2) g/dL Albumin (3.5-5.0) g/dL 09/03/20 09/03/20 09/03/20 Range/Units 00:10 04:40 06:42 WBC (3.8-10.6) k/uL Neutrophils # (1.3-7.7) k/uL Lymphocytes # (1.0-4.8) k/uL PT (9.0-12.0) sec INR (<1.2) ABG pH 7.47 H (7.35-7.45) ABG pCO2 52 H (35-45) mmHg ABG pO2 49 L* 51 L* (83-108) mmHg ABG HCO3 30 H 32 H (21-25) mmol/L ABG Total CO2 32 H 33 H (19-24) mmol/L ABG O2 Saturation 84.1 L 82.4 L (94-97) % Sodium (137-145) mmol/L Carbon Dioxide (22-30) mmol/L BUN (9-20) mg/dL Creatinine (0.66-1.25) mg/dL Glucose (74-99) mg/dL POC Glucose (mg/dL) 141 H (75-99) mg/dL Total Bilirubin (0.2-1.3) mg/dL Total Protein (6.3-8.2) g/dL Albumin (3.5-5.0) g/dL Assessment and Plan Plan: COVID pneumonitis with acute hypoxic respiratory failure and concomitant COPD exacerbation -Continue with Solu-medrol -Duonebs -Vit C, Vit D, Melatonin, Zinc Pulmonology following, appreciate input Transferred to ICU, on BiPAP. Possibly needing to be intubated ROSELYN on CKD 3B Serum creatinine 1.6, monitor. Chronic conditions: Type II DM, COPD, hyperlipidemia, gout, A. fib -Continue with home medications -Lispro insulin sliding scale and blood glucose monitoring weakness: Consult PT/OT Hypervolemia, multifactorial with acute on chronic systolic congestive heart failure ejection fraction 30-35% continue IV Lasix for 2020 and Aldactone Obtained 2-D echo, EF 30-35% Consult cardiology, input appreciated Nonsustained V. tach 5 beats Monitor on telemetry, cardiology consult, input appreciated DVT prophylaxis -Coumadin, on hold, INR 3.1 09/02/2020 Depression: Patient was started on Celexa CODE STATUS: Full Code Discussed with: Patient Anticipated discharge date: Pending clinical progression Anticipated discharge place: home versus rehab
--- NOTE | 2020-09-03 09:33 | P.PN ---
Subjective Progress Note Date: 09/03/20 80-year-old white male patient with past medical history of COPD, coronary artery disease, diabetes mellitus type 2, hypertension, hyperlipidemia, osteoarthritis, chronic kidney disease, cardiomyopathy with AICD placement came into the emergency department on a 2020 for evaluation of worsening cough and dyspnea. Patient was sent in by primary care physician for possible monoclonal antibody infusion. Patient has been having diarrhea, fever and fatigue, his symptom onset was approximately 4-5 days prior to presentation. In the emergency department he was given an infusion of BAM/MERVIN. Subsequently he developed hypoxemia, placed on supplemental oxygen, chest x-ray shows moderate bibasilar opacities concerning for infiltrates, EKG shows paced rhythm. Admission labs show lymphopenia with lymphocyte count of 0.8, increased CBC was unremarkable, d-dimer is 2.18, sodium is 134 and the rest of the electrolytes were unremarkable, BUN 42, creatinine is 2.03, ferritin level is 744, LDH is 846, CRP is 147.9, pro calcitonin level is 0.21. Patient was started IV Solu- Medrol, patient is on Coumadin with INR of 2.24. No acute distress, diarrhea is improving. Patient was reevaluated today on 08/26/2020, feels better, he is on 5 L nasal cannula, and his O2 sats is 90%. Patient does have shortness of breath with activity. Intermittent cough, no wheezing. His INR today is 3.7, d-dimer 2.18 on admission. BUN is 50 creatinine 2.1. LDH 846 C-reactive protein 148. On 08/27/2020 patient seen in follow-up medical floor, he is on 3 L of oxygen his pulse ox is 86%, and his FiO2 was diabetic up to 5 L and he is satting about 90%, he is on Remdesivir D to treatment, he is up in the chair, feeling weak but overall reports no worsening dyspnea. Mild edema in his lower extremities, we'll give the patient a dose of IV Lasix 40 mg, he continues on Solu-Medrol 60 mg every 6 hours, vitamins, he is on Symbicort, is on Coumadin for history of A. fib. His INR is 4.8 today. Chest pain, no hemoptysis, recent chest x-ray. No nausea vomiting or diarrhea. On 08/28/2020 patient is seen in follow-up on medical floor, he is currently on 10 L of oxygen his pulse ox is 92%, he is afebrile, hemodynamically stable, he is FiO2 requirement has increased , he looks a little bit more fatigued and weak, and he states he feels little depressed today, no chest pain, no nausea or vomiting. Appears to be in no distress. He is sitting up in the recliner, seems to be breathing comfortably, he continues on Decadron, polyvitamins, he remains on Coumadin, his INR today is 2.9, white blood cell count is 13.6, hemoglobin is 16.2, electrolytes were unremarkable, B1 is 64, creatinine is 1.6. Tolerating oral intake. On 08/31/2020 patient seen in follow-up on the medical floor. he seems very depressed today, is currently on 10 L per high flow nasal cannula, his pulse ox is between 85-89%, does easily desaturate with any exertion, but appears to be in no acute distress, is afebrile, no cough with chest discomfort, history of chest x-ray today shows patchy bilateral airspace disease no pneumothorax, stable findings. Today's labs have been noted, his INR today 3.4, electrolytes are within normal limits, BUN is 60 creatinine is 1.5, LDH is trending down, down to 409, and CRP is down to 1.3. Patient remains on oral Decadron 6 mg daily, he is on Coumadin which is being dosed by pharmacy, and his Lasix currently is at 40 mg every 12 hours this was started today. On 09/01/2020, the patient is extremely down and depressed. He makes comments about quitting the treatment as the patient is pulling on his nasal mask on and off and he doesn't want to continue to treatment. He is also is interested in hospice care. Based on that, I contacted the family and talked to his daughter her name is highly and informed her of the situation. I will also start the patient on Celexa 20 mg by mouth daily. Noted the patient's occupation is been worse and the patient is currently on high flow oxygen 60 L and FiO2 of 90%. Noted oxidation got worse yesterday and the patient's follow-up chest x-ray from today is essentially stable. Continues to have congested cough. He still having some shortness of breath even at rest. Lower extremity edema still present and the patient is on Lasix 40 mg IV every 12 hours. He is also on Decadron 6 mg on a daily basis. INR today is at 3.6. Creatinine is at 1.7. LDH level was 505 and a CRP level was 5.8.. The proBNP level was 1190. No other new complaints otherwise for now. The patient seems to be quite down and depressed. Oral intake has also dropped significantly. On today's evaluation of 09/02/2020, the patient is doing poorly. He is currently on high flow oxygen. Is declining the nonrebreather facemask. The patient is currently unable to 60 L with an FiO2 of 90%. His current pulse ox is around 86%. He is awake. He is communicating. His INR is at 3.1. He is on Lasix. He is a negative fluid balance. Creatinine is at 1.6 and the overall fluid balance is been negative. Afebrile. Oral intake has been quite low and poor and a chest x-ray showing stable bilateral pulmonary infiltrates. His echocardiogram also showed a ejection fraction of around 30-35% 09/03/2020, the patient got transferred to the intensive care unit. Note that overnight, the patient was struggling with his breathing had become progressively more short of breath and hypoxic. At that point, I took him off the high flow oxygen which she was on throughout the day and I switched him to a BiPAP and the bicarb is currently running at a pressure of 12/6 cm of water with an FiO2 of 100%. He is mumbling. His unresponsive. There is obvious drop in his level of consciousness. A repeat chest x-ray was done today this morning in the intensive care unit and the patient was found to have elevated right hemidiaphragm with focal and comfortable and bibasilar opacities consistent with COVID-19 related pneumonia and there is interval progression with further opacification of the right lower lobe and some further volume loss in the right lung. While on the BiPAP, the patient's respiratory the mid 30s. He is generating tidal volume in the 400. He is very sluggish in terms of his response and his mentation is altered. Blood gases from today showed a pH of 7.39 with a pCO2 of 52 and pO2 of 81 which is essentially comparable to yesterday's blood gases. Labs are still pending for now. Sound physician as well as the talk to this patient and apparently there was some talks about changing his CODE STATUS to full. I contacted the daughterAarti I also spoke with his . Noted the patient was getting significantly debilitated and depressed and his baseline performance functional status was extremely poor prior to this respiratory failure. After going through the case and after explaining to them the details of his respiratory failure, we decided to change his CODE STATUS to DNR/DNI. Obviously, if intubated, the patient will not come off the respirator and he is not a wean able case and for that reason we recommended against mechanical ventilation the patient's family were agreeable to that. In fact the daughter and the will be arriving to the ICU at around noontime. Meanwhile, we are continuing our supportive care for now. His blood pressure is holding at 114/68. His heart rate currently is in the mid 80s and he is paced. Objective - Vital Signs Vital signs: Vital Signs Temp 98.0 F 09/03/20 05:27 Pulse 70 09/03/20 08:00 Resp 33 H 09/03/20 08:00 BP 119/89 09/03/20 08:00 Pulse Ox 87 L 09/03/20 08:00 Intake & Output 09/02/20 09/03/20 09/03/20 18:59 06:59 18:59 Output Total 1600 250 Balance -1600 -250 Output: Urine 1600 250 Other: Voiding Method Urinal Diaper Incontinent # Voids 2 1 - Exam GENERAL EXAM: Alert, pleasant, 80-year-old white male, unresponsive, extremely lethargic, withdraws only to painful stimulation, mumbles, symptoms with the BiPAP full face mask currently on a pressure of 12/6 with an FiO2 of 40%. Withdraws only to deep painful stimulation. HEAD: Normocephalic/atraumatic. EYES: Normal reaction of pupils, equal size. Conjunctiva pink, sclera white. NOSE: Clear with pink turbinates. THROAT: No erythema or exudates. NECK: No masses, no JVD, no thyroid enlargement, no adenopathy. CHEST: No chest wall deformity. Symmetrical expansion. LUNGS: Equal air entry with diffuse crackles CVS: Regular rate and rhythm, normal S1 and S2, no gallops, no murmurs, no rubs ABDOMEN: Soft, nontender. No hepatosplenomegaly, normal bowel sounds, no guarding or rigidity. EXTREMITIES: No clubbing, no edema, no cyanosis, 2+ pulses and upper and lower extremities. MUSCULOSKELETAL: Muscle strength and tone normal. SPINE: No scoliosis or deformity SKIN: No rashes CENTRAL NERVOUS SYSTEM: Unresponsive, cannot communicate,. No focal deficits, strength has been admitted into the impaired and the motor function and sensory function cannot be assessed at this point in time. PSYCHIATRIC: Alert and oriented -3. Appropriate affect. Intact judgment and insight. - Labs CBC & Chem 7: 09/02/20 08:06 09/02/20 08:06 Labs: Abnormal Lab Results - Last 24 Hours (Table) 09/02/20 09/02/20 09/02/20 Range/Units 11:49 16:36 20:13 ABG pH (7.35-7.45) ABG pCO2 (35-45) mmHg ABG pO2 (83-108) mmHg ABG HCO3 (21-25) mmol/L ABG Total CO2 (19-24) mmol/L ABG O2 Saturation (94-97) % POC Glucose (mg/dL) 308 H 265 H 382 H (75-99) mg/dL 09/03/20 09/03/20 09/03/20 Range/Units 00:10 04:40 06:42 ABG pH 7.47 H (7.35-7.45) ABG pCO2 52 H (35-45) mmHg ABG pO2 49 L* 51 L* (83-108) mmHg ABG HCO3 30 H 32 H (21-25) mmol/L ABG Total CO2 32 H 33 H (19-24) mmol/L ABG O2 Saturation 84.1 L 82.4 L (94-97) % POC Glucose (mg/dL) 141 H (75-99) mg/dL Assessment and Plan Plan: #1. Acute hypoxic respiratory failure related to Covid 19 pneumonia, with onset of symptoms within 4-5 days presentation to the hospital, patient is given a dose of BAM/MERVIN on 08/24/2020, however progressed to acute hypoxic respiratory failure, and completed Remdesivir. Sequently, the patient was maintained on Decadron. Nevertheless, his oxygenation progressively got worse. He was not liters of oxygen by nasal cannula and the patient was transitioned to high flow oxygen by nasal cannula, 100% nonrebreather facemask and currently he is on a BiPAP at a pressure of 12/6 cm of water. He got transferred to the intensive care unit because of diminished level of consciousness, tachypnea, respiratory failure and the patient currently and obvious respiratory failure and his breathing is labored even while being on a BiPAP. Chest x-ray shows interval progression with worsening of the position of the right lung and there is significant volume loss. Obviously the patient is in respiratory failure and not responding to BiPAP. Mental status is also significantly altered and impaired. Blood gases showing severe toxemia while being on a BiPAP. Contacted the family. CODE STATUS is currently DNR/DNI. His baseline performance and functional status is poor. Intubation mechanical ventilation would likely not save the patient and his overall survival remains poor and for that reason we are recommending DNR/DNI, status and possible comfort care measures once the family arrives to the hospital. #2. Inflammatory markers and d-dimer due to the above #3. History of chronic A. fib with history of permanent pacemaker, on Coumadin, and INR is 3.1, follow-up labs are pending from today #4. Hypertension #5. Hyperlipidemia #6. Ischemic cardiomyopathy status post Bi-V AICD placement ejection fraction is poor at around 35%. #7. Diabetes mellitus type 2 #8. Osteoarthritis #9. Depression #10. COPD Plan The patient is known to me. He has multiple medical problems and comorbidities. Along with this ongoing COVID-19 infection/pneumonia, the patient became progressively more debilitated and withdrawn and recently he lost his will to live and on several occasions she wanted to and he made it clear to me. I thought initially that he was depressed and I started him on Celexa. I also contacted his family regarding the situation. Note that his oxygenation progressively get worse. He was requesting no intubation mechanical ventilation. There was a brief conversation that was done with the sound physician yesterday. I'm not sure of the exact circumstances of this discussion. I contacted the daughter Aarti and the and it was clear to me that the family opted for a DNR/DNI CODE STATUS. I think is very much reasonable. The patient has absolutely no chance of recovery from mechanical ventilation after intubation is done. As such, we'll continue our supportive care, possible comfort care measures at a later stage I. Family arrived to the hospital. Meanwhile, we'll continue the bicarb is same setting. Continue IV fluids at 75 mL an hour. Morphine if needed. Obtain labs. Continue Decadron IV. We'll continue to follow. Extremity for prognosis. Poor outcome. Likely her mortality from COVID-19 related pneumonia respiratory failure. Critically care evaluation more than 30 minutes including lengthy discussion with the family and several phone calls done to the daughter and to the . Time with Patient: Greater than 30
[2020-09-03] MEDS: SYMBICORT 160-4.5 MCG INHALER INHALATION SCH ×2 (11:18→20:22)
[2020-09-03 11:45] LABS: Glucose,Whole Blood 113 mg/dL (75-99)
[2020-09-03] MEDS: dexAMETHasone 2 MG TAB PO SCH (12:54)
[2020-09-03] MEDS: SPIRONOLACTONE 25 MG TAB PO SCH ×2 (12:54→21:41)
[2020-09-03] MEDS: carvediloL 6.25 MG TAB PO SCH ×2 (12:54→21:40)
[2020-09-03] MEDS: CLOPIDOGREL 75 MG TAB PO SCH (12:54)
[2020-09-03] MEDS ORDERED: WARFARIN 0.5 MG TAB PO ONE (18:00)
[2020-09-03] MEDS: ATORVASTATIN 20 MG TAB PO SCH (21:40)
[2020-09-03 21:46] LABS: Glucose,Whole Blood 146 mg/dL (75-99)
[2020-09-03] MEDS: SODIUM CHLORIDE 0.9% 1,000 ML IV SCH (21:48)
[2020-09-03] MEDS: INSULIN DETEMIR (LEVEMIR) 100 UNIT/ML SYR SQ SCH (21:48)
[2020-09-04 04:25] LABS: Basophils # (A) 0.1 k/uL (0-0.2); Basophils % (A) 0 %; Eosinophils % (A) 0 %; HCT 50.9 % (39.0-53.0); HGB 15.9 gm/dL (13.0-17.5); Lymphocytes # (A) 0.2 k/uL (1.0-4.8); Lymphocytes % (A) 1 %; MCH 31.1 pg (25.0-35.0); MCHC 31.3 g/dL (31.0-37.0); MCV 99.3 fL (80.0-100.0); Mean Platelet Volume 7.5; Monocytes % (A) 5 %; Neutrophils % (A) 93 %; Platelet Count 204 k/uL (150-450); RBC 5.13 m/uL (4.30-5.90); RDW 13.8 % (11.5-15.5); WBC 21.5 k/uL (3.8-10.6)
[2020-09-04 04:46] LABS: INR 2.6 (<1.2); Prothrombin Time 25.4 sec (9.0-12.0)
[2020-09-04 04:49] LABS: ALT 17 U/L (4-49); African American GFR (CKD) 38 (>60 ml/min/1.73 sqM); Albumin/Globulin Ratio 0.9; Anion Gap 9 mmol/L; Blood Urea Nitrogen 82 mg/dL (9-20); Calcium 8.4 mg/dL (8.4-10.2); Carbon Dioxide 26 mmol/L (22-30); Chloride 104 mmol/L (98-107); Globulin 2.7 g/dL; Glucose 156 mg/dL (74-99); Non-African American GFR(CKD) 33 (>60 ml/min/1.73 sqM); Sodium 139 mmol/L (137-145); Total Bilirubin 1.9 mg/dL (0.2-1.3)
[2020-09-04 04:51] LABS: Magnesium 2.3 mg/dL (1.6-2.3); Potassium 5.5 mmol/L (3.5-5.1)
[2020-09-04 04:52] LABS: AST 39 U/L (17-59); Albumin 2.4 g/dL (3.5-5.0); Alkaline Phosphatase 132 U/L (38-126); Total Protein 5.1 g/dL (6.3-8.2)
[2020-09-04 05:16] VITALS: TEMP 98.7
[2020-09-04] MEDS: MORPHINE SULFATE 2 MG/ML SYRINGE IVP PRN (05:45)
[2020-09-04] MEDS ORDERED: SODIUM BICARB 8.4% 50 ML SYR (1 MEQ/ML) IV STA (06:20)
[2020-09-04] MEDS ORDERED: LORazepam 2 MG/ML INJ IV STA (06:20)
[2020-09-04] MEDS ORDERED: INSULIN REGULAR 100 UNIT/ML VIAL (IV) IV ONE (06:21)
[2020-09-04] MEDS ORDERED: DEXTROSE 50% SYRINGE 50 ML IVP STA (06:39)
[2020-09-04 06:50] LABS: Glucose,Whole Blood 162 mg/dL (75-99)
[2020-09-04] MEDS: INSULIN ASPART (NovoLOG) 100 UNIT/ML VIAL SQ SCH (06:55)
--- NOTE | 2020-09-04 08:38 | XR ---
EXAMINATION TYPE: XR chest 1V DATE OF EXAM: 09/04/2020 COMPARISON: Chest x-ray 09/03/2020 HISTORY: Covid pneumonia, abnormal chest x-ray TECHNIQUE: Single frontal view of the chest is obtained. FINDINGS: Findings are similar to prior exam. Patient is rotated. Pacemaker, post median sternotomy change, elevation right hemidiaphragm all again noted, there is chest wall deformity on the right as on prior. There are overlying artifacts. No evident pneumothorax or pleural effusion. IMPRESSION: Correlate for pneumonia.
[2020-09-04] MEDS ORDERED: MORPHINE SULFATE 4 MG/ML SYRINGE IV PRN (08:40)
[2020-09-04] MEDS ORDERED: ATROPINE SULFATE 0.1 MG/ML 10ML SYRINGE ONE (08:48)
[2020-09-04] MEDS ORDERED: MORPHINE SULFATE (100 MG/2 ML) 100 MG in SODIUM CHLORIDE 0.9% 100 ML IV SCH (09:00)
--- NOTE | 2020-09-04 09:10 | P.PN ---
Subjective Progress Note Date: 09/04/20 remains on BIPAP. Restless Objective - Vital Signs Vital signs: Vital Signs Temp 98.7 F 09/04/20 04:00 Pulse 94 09/04/20 07:00 Resp 28 H 09/04/20 07:00 BP 104/88 09/04/20 07:00 Pulse Ox 73 L 09/04/20 07:00 Intake & Output 09/03/20 09/04/20 09/04/20 18:59 06:59 18:59 Intake Total 790 600 75 Output Total 780 515 30 Balance 10 85 45 Weight 121.3 kg Intake: IV 600 75 Sodium Chloride 0.9% 1, 600 75 000 ml @ 75 mls/hr IV . [id number] DESIRAE Rx#:[id number] Intake, IV Titration 790 Amount Sodium Chloride 0.9% 1, 790 000 ml @ 75 mls/hr IV . [id number] DESIRAE Rx#:[id number] Output: Urine 780 515 30 Other: Voiding Method Indwelling Catheter Indwelling Catheter - Exam Gen: awake, alert, lethargic, on BiPAP HEENT: normocephalic, atraumatic Resp: decreased Breath sounds, no wheezing CVS: good distal perfusion x 4, AICD in place GI: soft, NTND + BS Neuro: non-focal, moving all extremities, CN 2-12 intact Psych: cooperative Extremities: No clubbing cyanosis, trace bilateral edema - Labs CBC & Chem 7: 09/04/20 03:29 09/04/20 03:29 Labs: Abnormal Lab Results - Last 24 Hours (Table) 09/03/20 09/03/20 09/04/20 Range/Units 11:44 21:45 03:29 WBC (3.8-10.6) k/uL Neutrophils # (1.3-7.7) k/uL Lymphocytes # (1.0-4.8) k/uL PT (9.0-12.0) sec INR (<1.2) Potassium 5.5 H (3.5-5.1) mmol/L BUN 82 H (9-20) mg/dL Creatinine 1.85 H (0.66-1.25) mg/dL Glucose 156 H (74-99) mg/dL POC Glucose (mg/dL) 113 H 146 H (75-99) mg/dL Total Bilirubin 1.9 H (0.2-1.3) mg/dL Alkaline Phosphatase 132 H (38-126) U/L Total Protein 5.1 L (6.3-8.2) g/dL Albumin 2.4 L (3.5-5.0) g/dL 09/04/20 09/04/20 09/04/20 Range/Units 03:29 03:29 06:48 WBC 21.5 H (3.8-10.6) k/uL Neutrophils # 20.0 H (1.3-7.7) k/uL Lymphocytes # 0.2 L (1.0-4.8) k/uL PT 25.4 H (9.0-12.0) sec INR 2.6 H (<1.2) Potassium (3.5-5.1) mmol/L BUN (9-20) mg/dL Creatinine (0.66-1.25) mg/dL Glucose (74-99) mg/dL POC Glucose (mg/dL) 162 H (75-99) mg/dL Total Bilirubin (0.2-1.3) mg/dL Alkaline Phosphatase (38-126) U/L Total Protein (6.3-8.2) g/dL Albumin (3.5-5.0) g/dL Assessment and Plan Plan: COVID pneumonitis with acute hypoxic respiratory failure and concomitant COPD exacerbation -Continue with Solu-medrol -Duonebs -Vit C, Vit D, Melatonin, Zinc Pulmonology following, appreciate input On BiPAP ROSELYN on CKD 3B Serum creatinine 1.8, monitor. Chronic conditions: Type II DM, COPD, hyperlipidemia, gout, A. fib -Continue with home medications insulin sliding scale and blood glucose monitoring weakness: Consult PT/OT Hypervolemia, multifactorial with acute on chronic systolic congestive heart failure ejection fraction 30-35% continue IV Lasix for 2020 and Aldactone Obtained 2-D echo, EF 30-35% Consult cardiology, input appreciated Nonsustained V. tach 5 beats Monitor on telemetry, cardiology consult, input appreciated DVT prophylaxis -Coumadin, on hold, INR 2.6 Depression: Patient was started on Celexa CODE STATUS: DNI Anticipated discharge date: Pending clinical progression
[2020-09-04] MEDS: TIOTROPIUM 2.5 MCG INHALER INHALATION SCH (09:39)
[2020-09-04] MEDS: ALBUTEROL HFA INHALER INHALATION SCH (09:39)
[2020-09-04] MEDS: SYMBICORT 160-4.5 MCG INHALER INHALATION SCH (09:39)
--- NOTE | 2020-09-04 10:32 | P.DS ---
Providers Date of admission: 08/24/20 21:40 Attending physician: Mayo Ordoñez MD Consults: 08/24/20 19:14 Consult Physician Routine Consulting Provider: Judith Bianchi Consult Reason/Comments: COPD, COVID Do you want consulting provider notified?: Yes 09/01/20 08:56 Consult Physician Routine Consulting Provider: Hannah Abad Consult Reason/Comments: chf EF 30% Do you want consulting provider notified?: Yes Primary care physician: Edwige Steven Hospital Course: HPI: Patient is an 80-year-old male with a PMH of coronary artery disease status post CABG and AICD with pacemaker placement, CKD, Afib (on Coumadin), type II DM, hypertension, COPD, and gout who presented to the emergency room with complaints of diarrhea, SOB, and lethargy. The patient notes that his symptoms started 4 days ago and gradually worsened. He notes that his is also ill and they decided to come to the hospital together due to their similar worsening symptoms. He notes worsening SOB and loose multiple BMs with anorexia. Reports loss of sensation of taste and smell. Notes that he feels to weak to get up and perform any ADLs and thereby hasn't been eating or drinking much. Denied chest pain, cough, nausea, vomiting, dizziness, numbness or tingling. Patient underwent an extensive evaluation in the emergency room. On presentation, the patient was hypoxic with SpO2 of 88% on room air. Laboratory evaluation was remarkable for BUN 42, creatinine 2.03, and coronavirus PCR positive. Hospital course and treatment: Patient is admitted to the hospital with shortness of breath. He was found to have Covid pneumonia with acute hypoxic respiratory failure as well as COPD exacerbation. He was treated with oxygen bronchodilators steroids zinc vitamin C vitamin D and melatonin. Pulmonology were consulted. He also had acute kidney injury on chronic kidney disease stage IIIB. Acute on chronic systolic congestive heart failure with ejection fraction of 30-35%. He was treated with IV diuretics. Cardiology consulted for congestive heart failure. Patient deteriorated and was transferred to the intensive care unit and was placed on BiPAP. Patient was made DO NOT INTUBATE and subsequently 1 at 9:10 AM Diagnoses upon discharge: 1. Covid 19 2. Acute hypoxic respiratory failure 3. Pneumonia secondary to go over 4. Acute on chronic systolic congestive heart failure Patient Condition at Discharge: Undetermined Plan - Discharge Summary Discharge Rx Participant: Yes New Discharge Prescriptions: No Action Spironolactone [Aldactone] 25 mg PO BID Furosemide [Lasix] 40 mg PO DAILY Clopidogrel [Plavix] 75 mg PO DAILY Carvedilol [Coreg] 6.25 mg PO BID Atorvastatin [Lipitor] 20 mg PO HS Escitalopram [Lexapro] 10 mg PO DAILY Budesonide-Formot 160-4.5 Mcg [Symbicort 160-4.5 Mcg Inhaler] 2 puff INHALATION RT-BID Albuterol Nebulized [Ventolin Nebulized] 2.5 mg INHALATION RT-Q6H PRN PRN Reason: Dyspnea Warfarin [Coumadin] 5 mg PO HS allopurinoL [Zyloprim] 100 mg PO DAILY Glimepiride [Amaryl] 1 mg PO AC-BRKFST calcitrioL [Rocaltrol] 0.25 mcg PO MOWEFR Discharge Medication List Atorvastatin [Lipitor] 20 mg PO HS 04/30/16 [History] Carvedilol [Coreg] 6.25 mg PO BID 04/30/16 [History] Clopidogrel [Plavix] 75 mg PO DAILY 04/30/16 [History] Furosemide [Lasix] 40 mg PO DAILY 04/30/16 [History] Spironolactone [Aldactone] 25 mg PO BID 04/30/16 [History] Escitalopram [Lexapro] 10 mg PO DAILY 07/11/16 [History] Budesonide-Formot 160-4.5 Mcg [Symbicort 160-4.5 Mcg Inhaler] 2 puff INHALATION RT-BID 02/09/18 [History] Albuterol Nebulized [Ventolin Nebulized] 2.5 mg INHALATION RT-Q6H PRN 08/23/19 [History] Warfarin [Coumadin] 5 mg PO HS 08/23/19 [History] allopurinoL [Zyloprim] 100 mg PO DAILY 08/23/19 [History] Glimepiride [Amaryl] 1 mg PO AC-BRKFST 09/29/19 [History] calcitrioL [Rocaltrol] 0.25 mcg PO MOWEFR 08/24/20 [History] Follow up Appointment(s)/Referral(s): [facility], [NON-STAFF] - As Needed Edwige Steven MD [Primary Care Provider] - 1-2 days Judith Bianchi MD [STAFF PHYSICIAN] - 2 Weeks
[2020-09-04 10:51] VITALS: BP 115/82; PULSE 107; RESP 45
--- NOTE | 2020-09-04 11:10 | P.PN ---
Subjective Progress Note Date: 09/04/20 Principal diagnosis: Acute hypoxic respiratory failure related to Covid 19 pneumonia, 80-year-old white male patient with past medical history of COPD, coronary artery disease, diabetes mellitus type 2, hypertension, hyperlipidemia, osteoarthritis, chronic kidney disease, cardiomyopathy with AICD placement came into the emergency department on a 2020 for evaluation of worsening cough and dyspnea. Patient was sent in by primary care physician for possible monoclonal antibody infusion. Patient has been having diarrhea, fever and fatigue, his symptom onset was approximately 4-5 days prior to presentation. In the emergency department he was given an infusion of BAM/MERVIN. Subsequently he developed hypoxemia, placed on supplemental oxygen, chest x-ray shows moderate bibasilar opacities concerning for infiltrates, EKG shows paced rhythm. Admission labs show lymphopenia with lymphocyte count of 0.8, increased CBC was unremarkable, d-dimer is 2.18, sodium is 134 and the rest of the electrolytes were unremarkable, BUN 42, creatinine is 2.03, ferritin level is 744, LDH is 846, CRP is 147.9, pro calcitonin level is 0.21. Patient was started IV Solu- Medrol, patient is on Coumadin with INR of 2.24. No acute distress, diarrhea is improving. Patient was reevaluated today on 08/26/2020, feels better, he is on 5 L nasal cannula, and his O2 sats is 90%. Patient does have shortness of breath with activity. Intermittent cough, no wheezing. His INR today is 3.7, d-dimer 2.18 on admission. BUN is 50 creatinine 2.1. LDH 846 C-reactive protein 148. On 08/27/2020 patient seen in follow-up medical floor, he is on 3 L of oxygen his pulse ox is 86%, and his FiO2 was diabetic up to 5 L and he is satting about 90%, he is on Remdesivir D to treatment, he is up in the chair, feeling weak but overall reports no worsening dyspnea. Mild edema in his lower extremities, we'll give the patient a dose of IV Lasix 40 mg, he continues on Solu-Medrol 60 mg every 6 hours, vitamins, he is on Symbicort, is on Coumadin for history of A. fib. His INR is 4.8 today. Chest pain, no hemoptysis, recent chest x-ray. No nausea vomiting or diarrhea. On 08/28/2020 patient is seen in follow-up on medical floor, he is currently on 10 L of oxygen his pulse ox is 92%, he is afebrile, hemodynamically stable, he is FiO2 requirement has increased , he looks a little bit more fatigued and weak, and he states he feels little depressed today, no chest pain, no nausea or vomiting. Appears to be in no distress. He is sitting up in the recliner, seems to be breathing comfortably, he continues on Decadron, polyvitamins, he remains on Coumadin, his INR today is 2.9, white blood cell count is 13.6, hemoglobin is 16.2, electrolytes were unremarkable, B1 is 64, creatinine is 1.6. Tolerating oral intake. On 08/31/2020 patient seen in follow-up on the medical floor. he seems very depressed today, is currently on 10 L per high flow nasal cannula, his pulse ox is between 85-89%, does easily desaturate with any exertion, but appears to be in no acute distress, is afebrile, no cough with chest discomfort, history of chest x-ray today shows patchy bilateral airspace disease no pneumothorax, stable findings. Today's labs have been noted, his INR today 3.4, electrolytes are within normal limits, BUN is 60 creatinine is 1.5, LDH is trending down, down to 409, and CRP is down to 1.3. Patient remains on oral Decadron 6 mg daily, he is on Coumadin which is being dosed by pharmacy, and his Lasix currently is at 40 mg every 12 hours this was started today. On 09/01/2020, the patient is extremely down and depressed. He makes comments about quitting the treatment as the patient is pulling on his nasal mask on and off and he doesn't want to continue to treatment. He is also is interested in hospice care. Based on that, I contacted the family and talked to his daughter her name is highly and informed her of the situation. I will also start the patient on Celexa 20 mg by mouth daily. Noted the patient's occupation is been worse and the patient is currently on high flow oxygen 60 L and FiO2 of 90%. Noted oxidation got worse yesterday and the patient's follow-up chest x-ray from today is essentially stable. Continues to have congested cough. He still having some shortness of breath even at rest. Lower extremity edema still present and the patient is on Lasix 40 mg IV every 12 hours. He is also on Decadron 6 mg on a daily basis. INR today is at 3.6. Creatinine is at 1.7. LDH level was 505 and a CRP level was 5.8.. The proBNP level was 1190. No other new complaints otherwise for now. The patient seems to be quite down and depressed. Oral intake has also dropped significantly. On today's evaluation of 09/02/2020, the patient is doing poorly. He is currently on high flow oxygen. Is declining the nonrebreather facemask. The patient is currently unable to 60 L with an FiO2 of 90%. His current pulse ox is around 86%. He is awake. He is communicating. His INR is at 3.1. He is on Lasix. He is a negative fluid balance. Creatinine is at 1.6 and the overall fluid balance is been negative. Afebrile. Oral intake has been quite low and poor and a chest x-ray showing stable bilateral pulmonary infiltrates. His echocardiogram also showed a ejection fraction of around 30-35% 09/03/2020, the patient got transferred to the intensive care unit. Note that overnight, the patient was struggling with his breathing had become progressively more short of breath and hypoxic. At that point, I took him off the high flow oxygen which she was on throughout the day and I switched him to a BiPAP and the bicarb is currently running at a pressure of 12/6 cm of water with an FiO2 of 100%. He is mumbling. His unresponsive. There is obvious drop in his level of consciousness. A repeat chest x-ray was done today this morning in the intensive care unit and the patient was found to have elevated right hemidiaphragm with focal and comfortable and bibasilar opacities consistent with COVID-19 related pneumonia and there is interval progression with further opacification of the right lower lobe and some further volume loss in the right lung. While on the BiPAP, the patient's respiratory the mid 30s. He is generating tidal volume in the 400. He is very sluggish in terms of his response and his mentation is altered. Blood gases from today showed a pH of 7.39 with a pCO2 of 52 and pO2 of 81 which is essentially comparable to yesbrennon amaya's blood gases. Labs are still pending for now. Sound physician as well as the talk to this patient and apparently there was some talks about changing his CODE STATUS to full. I contacted the daughterAarti I also spoke with his . Noted the patient was getting significantly debilitated and depressed and his baseline performance functional status was extremely poor prior to this respiratory failure. After going through the case and after explaining to them the details of his respiratory failure, we decided to change his CODE STATUS to DNR/DNI. Obviously, if intubated, the patient will not come off the respirator and he is not a wean able case and for that reason we recommended against mechanical ventilation the patient's family were agreeable to that. In fact the daughter and the will be arriving to the ICU at around noontime. Meanwhile, we are continuing our supportive care for now. His blood pressure is holding at 114/68. His heart rate currently is in the mid 80s and he is paced. Patient was reevaluated today on 09/04/2020, patient remains quite ill, he is on BiPAP, patient is in severe respiratory distress, family is on the way, and the plan is to proceed with comfort care measures once the family arrives. Apparently his is very well aware that he is not doing well, and she is on her way. Shortly after I evaluated the patient, the patient coded, and he went into asystole, nursing staff went in to resuscitate the patient, and started CPR. However considering his severe and poor prognosis, considering the patient was given go to comfort care as soon as the arrives, and considering the patient is DO NOT INTUBATE to begin with, I ordered stopping CPR, and that the patient passed in peace comfort and dignity. And this was done, patient passed peacefully. Objective - Vital Signs Vital signs: Vital Signs Temp 98.7 F 09/04/20 04:00 Pulse 107 H 09/04/20 08:00 Resp 45 H 09/04/20 08:00 BP 115/82 09/04/20 08:00 Pulse Ox 62 L 09/04/20 08:00 Intake & Output 09/03/20 09/04/20 09/04/20 18:59 06:59 18:59 Intake Total 790 600 75 Output Total 780 515 30 Balance 10 85 45 Weight 121.3 kg Intake: IV 600 75 Sodium Chloride 0.9% 1, 600 75 000 ml @ 75 mls/hr IV . [id number] DESIRAE Rx#:[id number] Intake, IV Titration 790 Amount Sodium Chloride 0.9% 1, 790 000 ml @ 75 mls/hr IV . [id number] DESIRAE Rx#:[id number] Output: Urine 780 515 30 Other: Voiding Method Indwelling Catheter Indwelling Catheter Indwelling Catheter - Exam GENERAL EXAM: Revealed an 80-year-old white male unresponsive lethargic on BiPAP. Moderate respiratory distress HEAD: Normocephalic/atraumatic. EYES: Normal reaction of pupils, equal size. Conjunctiva pink, sclera white. NOSE: Clear with pink turbinates. THROAT: No erythema or exudates. NECK: No masses, no JVD, no thyroid enlargement, no adenopathy. CHEST: No chest wall deformity. Symmetrical expansion. LUNGS: Equal air entry with diffuse crackles CVS: Regular rate and rhythm, normal S1 and S2, no gallops, no murmurs, no rubs ABDOMEN: Soft, nontender. No hepatosplenomegaly, normal bowel sounds, no guarding or rigidity. EXTREMITIES: No clubbing, no edema, no cyanosis, 2+ pulses and upper and lower extremities. SKIN: No rashes CENTRAL NERVOUS SYSTEM: Unresponsive, cannot communicate, - Labs CBC & Chem 7: 09/04/20 03:29 09/04/20 03:29 Labs: Abnormal Lab Results - Last 24 Hours (Table) 09/03/20 09/03/20 09/04/20 Range/Units 11:44 21:45 03:29 WBC (3.8-10.6) k/uL Neutrophils # (1.3-7.7) k/uL Lymphocytes # (1.0-4.8) k/uL PT (9.0-12.0) sec INR (<1.2) Potassium 5.5 H (3.5-5.1) mmol/L BUN 82 H (9-20) mg/dL Creatinine 1.85 H (0.66-1.25) mg/dL Glucose 156 H (74-99) mg/dL POC Glucose (mg/dL) 113 H 146 H (75-99) mg/dL Total Bilirubin 1.9 H (0.2-1.3) mg/dL Alkaline Phosphatase 132 H (38-126) U/L Total Protein 5.1 L (6.3-8.2) g/dL Albumin 2.4 L (3.5-5.0) g/dL 09/04/20 09/04/20 09/04/20 Range/Units 03:29 03:29 06:48 WBC 21.5 H (3.8-10.6) k/uL Neutrophils # 20.0 H (1.3-7.7) k/uL Lymphocytes # 0.2 L (1.0-4.8) k/uL PT 25.4 H (9.0-12.0) sec INR 2.6 H (<1.2) Potassium (3.5-5.1) mmol/L BUN (9-20) mg/dL Creatinine (0.66-1.25) mg/dL Glucose (74-99) mg/dL POC Glucose (mg/dL) 162 H (75-99) mg/dL Total Bilirubin (0.2-1.3) mg/dL Alkaline Phosphatase (38-126) U/L Total Protein (6.3-8.2) g/dL Albumin (3.5-5.0) g/dL Assessment and Plan Assessment: Acute hypoxic respiratory failure secondary to COVID-19 pneumonia. Multiple comorbidities including chronic A. fib, hypertension, ischemic cardiomyopathy and previous AICD placement, type 2 diabetes, degenerative joint disease, and underlying COPD. Recommendation: Discussed his condition with the nurse taking care of the patient. Advise stopping CPR immediately And advice comfort care measures to let the patient pass peacefully and comfortably. Prognosis is extremely poor, patient had previously expressed wishes as not to be placed on life-support machinery. Critical care time is over 30 minutes Time with Patient: Greater than 30
[2020-09-04] MEDS ORDERED: WARFARIN 2.5 MG TAB PO ONE (18:00)
== END 2020-09-04 11:07 | disposition expired | DRG 177 ==
LOC: EC 16:20 → 4SSUR 21:40 → 2SICU 09-03 06:51
PROVIDERS: ADMIT Internal Medicine; ATTEND Internal Medicine
PROC: XW033F6 Introduction of Bamlanivimab Monoclonal Antibody into Peripheral Vein, Percutaneous Approach, New Technology Group 6 (ICD-10-PCS; principal; 2020-08-24)
PROC: XW033E5 Introduction of Remdesivir Anti-infective into Peripheral Vein, Percutaneous Approach, New Technology Group 5 (ICD-10-PCS; 2020-08-25)
PROC: 5A0945A Assistance with Respiratory Ventilation, 24-96 Consecutive Hours, High Flow/Velocity Cannula (ICD-10-PCS; 2020-08-30)
PROC: 5A09457 Assistance with Respiratory Ventilation, 24-96 Consecutive Hours, Continuous Positive Airway Pressure (ICD-10-PCS; 2020-09-03)
DX: U07.1 COVID-19 (principal); J12.82 Pneumonia due to coronavirus disease 2019; J96.01 Acute respiratory failure with hypoxia; I50.23 Acute on chronic systolic (congestive) heart failure; I13.0 Hypertensive heart and chronic kidney disease with heart failure and stage 1 through stage 4 chronic kidney disease, or unspecified chronic kidney disease; J44.0 Chronic obstructive pulmonary disease with (acute) lower respiratory infection; J44.1 Chronic obstructive pulmonary disease with (acute) exacerbation; N17.9 Acute kidney failure, unspecified; I48.20 Chronic atrial fibrillation, unspecified; I27.20 Pulmonary hypertension, unspecified; E11.22 Type 2 diabetes mellitus with diabetic chronic kidney disease; N18.32 Chronic kidney disease, stage 3b; I46.9 Cardiac arrest, cause unspecified; I71.9 Aortic aneurysm of unspecified site, without rupture; Z66 Do not resuscitate; Z51.5 Encounter for palliative care; I25.5 Ischemic cardiomyopathy; I08.3 Combined rheumatic disorders of mitral, aortic and tricuspid valves; I25.10 Atherosclerotic heart disease of native coronary artery without angina pectoris; F32.9 Major depressive disorder, single episode, unspecified; E78.5 Hyperlipidemia, unspecified; I49.3 Ventricular premature depolarization; M19.90 Unspecified osteoarthritis, unspecified site; M10.9 Gout, unspecified; R79.1 Abnormal coagulation profile; T45.515A Adverse effect of anticoagulants, initial encounter; R32 Unspecified urinary incontinence; Z79.51 Long term (current) use of inhaled steroids; Z79.02 Long term (current) use of antithrombotics/antiplatelets; Z79.01 Long term (current) use of anticoagulants; Z79.84 Long term (current) use of oral hypoglycemic drugs; Z79.899 Other long term (current) drug therapy; Z85.828 Personal history of other malignant neoplasm of skin; Z95.810 Presence of automatic (implantable) cardiac defibrillator; Z95.1 Presence of aortocoronary bypass graft; Z95.5 Presence of coronary angioplasty implant and graft; Z87.09 Personal history of other diseases of the respiratory system; Z95.828 Presence of other vascular implants and grafts; Z87.39 Personal history of other diseases of the musculoskeletal system and connective tissue; Z98.42 Cataract extraction status, left eye; Z98.41 Cataract extraction status, right eye; Z87.891 Personal history of nicotine dependence; Z98.890 Other specified postprocedural states; Z88.6 Allergy status to analgesic agent; Z82.3 Family history of stroke
CPT/HCPCS: 36415; 36600; 71045; 80048; 80053; 82728; 82805; 83036; 83605; 83615; 83735; 83880; 84145; 85025; 85027; 85379; 85610; 85730; 86140; 87635; 93005; 93306; 94640; 94660; 94760; 96374; 99285